=== PATIENT | male | born 1960 | race Caucasian/White ===

== ENCOUNTER 2023-06-03 14:08 | Outpatient (CLI) | payer OTHER, SELFPAY ==
[2023-06-03 10:42] LABS: Abs Immature Grans 0.03 10^3/uL (0.0-0.06); Absolute Basophil Count 0.07 10^3/uL (0.0-0.2); Absolute Lymphocyte Count 1.39 10^3/uL (1.2-3.4); Absolute Monocyte Count 0.73 10^3/uL (0.1-0.8); Absolute Neutrophil Count 3.93 10^3/uL (1.2-6.7); Basophils % 1.1; Eosinophils % 6.1; HCT 44.2 % (40.0-50.0); HGB 14.6 g/dL (13.5-17.5); Immature Grans % 0.5; Lymphocytes % 21.2; MCH 31.7 pg (27.0-33.0); MCV 96 fL (80-95); MPV 8.6 fL (8.0-11.0); Monocytes % 11.1; Platelet Count 184 10^3/uL (130-400); RBC 4.61 10^6/uL (4.36-5.78); RDW 13.2 % (11.8-14.1); RDW-SD 47.2 fL; WBC 6.55 10^3/uL (4.4-10.8)
[2023-06-03 11:07] LABS: ALT 26 U/L (16-63); AST 13 U/L (15-37); Albumin 3.1 g/dL (3.4-5.0); Alkaline Phosphatase 73 U/L (46-116); Anion Gap 6.9 mmol/L (3-11); BUN 20 mg/dL (7-18); Bilirubin, Total 0.3 mg/dL (0.2-1.0); CO2 30.1 mmol/L (21.0-32.0); CREATININE 1.3 mg/dL (0.70-1.30); Calcium 8.5 mg/dL (8.5-10.1); Chloride 104 mmol/L (98-107); Estimated GFR 61.35 (mL/min/1.73m2); FREE T4 0.62 ng/dL (0.76-1.46); Glucose 106 mg/dL (74-106); Magnesium 2.1 mg/dL (1.8-2.4); Potassium 4.9 mmol/L (3.5-5.1); Sodium 141 mmol/L (136-145); TSH 4.35 uIU/Ml (0.36-3.74); Total Protein 7.3 g/dL (6.4-8.2)
== END 2023-06-03 14:09 | disposition home or self-care (01) ==
LOC: LBO 14:08
PROVIDERS: Visit Provider Internal Medicine Medical Oncology
DX: C34.12 Malignant neoplasm of upper lobe, left bronchus or lung (principal); C78.7 Secondary malignant neoplasm of liver and intrahepatic bile duct; Z79.899 Other long term (current) drug therapy
CPT/HCPCS: 36415; 80053; 83735; 84439; 84443; 85025

== ENCOUNTER 2023-06-29 05:31 | Outpatient (CLI) | payer OTHER, SELFPAY ==
[2023-06-29 10:13] LABS: Abs Immature Grans 0.03 10^3/uL (0.0-0.06); Absolute Basophil Count 0.08 10^3/uL (0.0-0.2); Absolute Eosinophil Count 0.44 10^3/uL (0.0-0.7); Absolute Lymphocyte Count 1.45 10^3/uL (1.2-3.4); Absolute Monocyte Count 0.67 10^3/uL (0.1-0.8); Absolute Neutrophil Count 3.69 10^3/uL (1.2-6.7); Basophils % 1.3 %; Eosinophils % 6.9 %; HCT 43.1 % (40.0-50.0); HGB 14.2 g/dL (13.5-17.5); Immature Grans % 0.5 %; Lymphocytes % 22.8 %; MCH 31.3 pg (27.0-33.0); MCHC 32.9 % (32.0-36.0); MCV 95 fL (80-95); MPV 8.6 fL (8.0-11.0); Monocytes % 10.5 %; Platelet Count 216 10^3/uL (130-400); RBC 4.54 10^6/uL (4.36-5.78); RDW 13.6 % (11.8-14.1); RDW-SD 48.1 fL; WBC 6.36 10^3/uL (4.4-10.8)
[2023-06-29 10:39] LABS: ALT 23 U/L (16-63); AST 10 U/L (15-37); Albumin 3.3 g/dL (3.4-5.0); Alkaline Phosphatase 82 U/L (46-116); Anion Gap 9.2 mmol/L (3-11); BUN 25 mg/dL (7-18); Bilirubin, Total 0.3 mg/dL (0.2-1.0); CO2 28.8 mmol/L (21.0-32.0); CREATININE 1.2 mg/dL (0.70-1.30); Calcium 8.8 mg/dL (8.5-10.1); Chloride 105 mmol/L (98-107); Estimated GFR 67.53 (mL/min/1.73m2); Glucose 89 mg/dL (74-106); Magnesium 2.1 mg/dL (1.8-2.4); Sodium 143 mmol/L (136-145); TSH 5.92 uIU/Ml (0.36-3.74); Total Protein 7.5 g/dL (6.4-8.2)
== END 2023-06-29 05:32 | disposition home or self-care (01) ==
LOC: LBO 05:31
PROVIDERS: Visit Provider Internal Medicine Medical Oncology
DX: C34.12 Malignant neoplasm of upper lobe, left bronchus or lung (principal); C78.7 Secondary malignant neoplasm of liver and intrahepatic bile duct; Z79.899 Other long term (current) drug therapy
CPT/HCPCS: 36415; 80053; 83735; 84439; 84443; 85025

== ENCOUNTER 2023-07-22 05:02 | Outpatient (CLI) | payer OTHER, SELFPAY ==
[2023-07-22 10:09] LABS: Abs Immature Grans 0.01 10^3/uL (0.0-0.06); Absolute Basophil Count 0.07 10^3/uL (0.0-0.2); Absolute Eosinophil Count 0.33 10^3/uL (0.0-0.7); Absolute Lymphocyte Count 1.19 10^3/uL (1.2-3.4); Absolute Monocyte Count 0.59 10^3/uL (0.1-0.8); Absolute Neutrophil Count 2.37 10^3/uL (1.2-6.7); Basophils % 1.5 %; Eosinophils % 7.2 %; HCT 45.1 % (40.0-50.0); HGB 15.1 g/dL (13.5-17.5); Immature Grans % 0.2 %; Lymphocytes % 26.1 %; MCH 32.1 pg (27.0-33.0); MCHC 33.5 % (32.0-36.0); MCV 96 fL (80-95); MPV 8.4 fL (8.0-11.0); Monocytes % 12.9 %; Neutrophils % 52.1 %; Platelet Count 222 10^3/uL (130-400); RBC 4.71 10^6/uL (4.36-5.78); RDW 14.9 % (11.8-14.1); RDW-SD 53.1 fL; WBC 4.56 10^3/uL (4.4-10.8)
[2023-07-22 10:38] LABS: ALT 53 U/L (16-63); AST 18 U/L (15-37); Albumin 3.4 g/dL (3.4-5.0); Alkaline Phosphatase 72 U/L (46-116); Anion Gap 6.1 mmol/L (3-11); BUN 20 mg/dL (7-18); Bilirubin, Total 0.5 mg/dL (0.2-1.0); CO2 30.9 mmol/L (21.0-32.0); CREATININE 1.1 mg/dL (0.70-1.30); Calcium 8.6 mg/dL (8.5-10.1); Chloride 104 mmol/L (98-107); Estimated GFR 74.96 (mL/min/1.73m2); FREE T4 0.87 ng/dL (0.76-1.46); Glucose 81 mg/dL (74-106); Magnesium 2.2 mg/dL (1.8-2.4); Potassium 4.3 mmol/L (3.5-5.1); Sodium 141 mmol/L (136-145); TSH 1.73 uIU/Ml (0.36-3.74); Total Protein 7.8 g/dL (6.4-8.2)
== END 2023-07-22 05:03 | disposition home or self-care (01) ==
LOC: LBO 05:02
PROVIDERS: Visit Provider Internal Medicine Medical Oncology
DX: C34.12 Malignant neoplasm of upper lobe, left bronchus or lung (principal); C78.7 Secondary malignant neoplasm of liver and intrahepatic bile duct; Z79.899 Other long term (current) drug therapy
CPT/HCPCS: 36415; 80053; 83735; 84439; 84443; 85025

== ENCOUNTER 2023-08-17 19:51 | Outpatient (CLI) | payer OTHER, SELFPAY ==
[2023-08-17 10:26] LABS: Abs Immature Grans 0.02 10^3/uL (0.0-0.06); Absolute Eosinophil Count 0.45 10^3/uL (0.0-0.7); Absolute Lymphocyte Count 1.09 10^3/uL (1.2-3.4); Absolute Monocyte Count 0.57 10^3/uL (0.1-0.8); Absolute Neutrophil Count 2.34 10^3/uL (1.2-6.7); Basophils % 2.2 %; Eosinophils % 9.8 %; HCT 42.4 % (40.0-50.0); HGB 13.9 g/dL (13.5-17.5); Immature Grans % 0.4 %; Lymphocytes % 23.9 %; MCH 32.3 pg (27.0-33.0); MCHC 32.8 % (32.0-36.0); MCV 99 fL (80-95); MPV 8.8 fL (8.0-11.0); Monocytes % 12.5 %; Neutrophils % 51.2 %; Platelet Count 154 10^3/uL (130-400); RDW 15.7 % (11.8-14.1); WBC 4.57 10^3/uL (4.4-10.8)
[2023-08-17 10:49] LABS: ALT 65 U/L (16-63); AST 23 U/L (15-37); Albumin 3.4 g/dL (3.4-5.0); Alkaline Phosphatase 61 U/L (46-116); Anion Gap 7.3 mmol/L (3-11); BUN 22 mg/dL (7-18); Bilirubin, Total 0.43 mg/dL (0.2-1.0); CO2 28.7 mmol/L (21.0-32.0); CREATININE 1.1 mg/dL (0.70-1.30); Calcium 8.4 mg/dL (8.5-10.1); Chloride 105 mmol/L (98-107); Estimated GFR 74.96 (mL/min/1.73m2); FREE T4 0.69 ng/dL (0.76-1.46); Glucose 92 mg/dL (74-106); Sodium 141 mmol/L (136-145); Total Protein 7.4 g/dL (6.4-8.2)
== END 2023-08-17 19:52 | disposition home or self-care (01) ==
LOC: LBO 19:51
PROVIDERS: Visit Provider Internal Medicine Medical Oncology
DX: C34.12 Malignant neoplasm of upper lobe, left bronchus or lung (principal); C78.7 Secondary malignant neoplasm of liver and intrahepatic bile duct; Z79.899 Other long term (current) drug therapy
CPT/HCPCS: 36415; 80053; 83735; 84439; 84443; 85025

== ENCOUNTER 2023-09-07 11:52 | Outpatient (CLI) | payer OTHER, SELFPAY ==
[2023-09-07 10:11] LABS: Abs Immature Grans 0.01 10^3/uL (0.0-0.06); Absolute Basophil Count 0.08 10^3/uL (0.0-0.2); Absolute Eosinophil Count 0.54 10^3/uL (0.0-0.7); Absolute Lymphocyte Count 1.02 10^3/uL (1.2-3.4); Absolute Monocyte Count 0.53 10^3/uL (0.1-0.8); Absolute Neutrophil Count 2.48 10^3/uL (1.2-6.7); Basophils % 1.7 %; Eosinophils % 11.6 %; HCT 40.4 % (40.0-50.0); HGB 13.7 g/dL (13.5-17.5); Immature Grans % 0.2 %; Lymphocytes % 21.9 %; MCH 33.5 pg (27.0-33.0); MCHC 33.9 % (32.0-36.0); MCV 99 fL (80-95); MPV 8.1 fL (8.0-11.0); Monocytes % 11.4 %; Neutrophils % 53.2 %; Platelet Count 181 10^3/uL (130-400); RBC 4.09 10^6/uL (4.36-5.78); RDW 14.9 % (11.8-14.1); RDW-SD 54.9 fL; WBC 4.66 10^3/uL (4.4-10.8)
[2023-09-07 10:36] LABS: ALT 47 U/L (16-63); AST 21 U/L (15-37); Albumin 3.2 g/dL (3.4-5.0); Alkaline Phosphatase 59 U/L (46-116); BUN 21 mg/dL (7-18); Bilirubin, Total 0.36 mg/dL (0.2-1.0); CREATININE 1.2 mg/dL (0.70-1.30); Calcium 8.6 mg/dL (8.5-10.1); Chloride 106 mmol/L (98-107); Estimated GFR 67.53 (mL/min/1.73m2); FREE T4 0.77 ng/dL (0.76-1.46); Glucose 87 mg/dL (74-106); Potassium 3.9 mmol/L (3.5-5.1); Sodium 141 mmol/L (136-145); TSH 3.11 uIU/Ml (0.36-3.74); Total Protein 7.3 g/dL (6.4-8.2)
--- OUTSIDE RECORDS SUMMARY | 2023-09-07 11:54 | XMS_ITS ---
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 05/08/2023 Cancer Staging:Clinical stage from 05/08/2023:Stage IVB(cT4, cN3, cM1c) - Signed by Alexsander Thomas MD on 05/08/2023 Secondary malignant neoplasm of liver 05/08/2023 Secondary malignant neoplasm of brain 05/08/2023 Current Oncology Plans [facility] ONC NONSMALL CELL LUNG CANCER - CARBOplatin / PEMEtrexed / PEMBROLIZUMAB* Plan Start Date:06/03/2023 Plan Provider:Alexsander Thomas MD Linked Problems High risk medication useBone neoplasm secondary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Secondary malignant neoplasm of brainSecondary malignant neoplasm of liver Treatment Medications Current Day (Day 1 , Cycle 5 - Planned for 09/07/2023) Next Day (Day 1, Cycle 6 - Planned for 09/28/2023) CARBOplatin (Paraplatin) in 150 mL infusionpembrolizumab (Keytruda) in sodium chloride 0.9% 100 mL infusionPEMEtrexed (Alimta) in sodium chloride 0.9% 100 mL infusion pembrolizumab (Keytruda) 200 mg in sodium chloride 0.9% 108 mL infusionPEMEtrexed disodium (Alimta) 900 mg in sodium chloride 0.9% 136 mL infusion pembrolizumab (Keytruda) 200 mg in sodium chloride 0.9% 108 mL infusionPEMEtrexed disodium (Alimta) 900 mg in sodium chloride 0.9% 136 mL infusion Past Plans No past plan information found. Radiation Treatments * No radiation treatments are documented for this patient in [facility]. Treatments may have been administered in another system.
--- OUTSIDE RECORDS SUMMARY | 2023-09-07 11:54 | XMS_ITS | Clinical Summary ---
Author Organization Formerly [facility] Address [facility] [place] [address] Care Team Providers Care Manager Photography Name Role Phone Mabel Middleton Primary Care Provider [phone] Allergies Active Allergy Reactions Criticality Noted Date Comments Demeclocycline Rash 04/22/2023 Medications Medication Sig Dispensed Refills Start Date End Date Status LORazepam (Ativan) 0.5 mg tablet 0.5 mg. 04/21/2023 Active prochlorperazine (Compazine) 10 mg tablet Take 1 tablet by mouth every 6 hours as needed for Nausea. 30 tablet 3 05/25/2023 Active folic acid (Vitamin B9) 1 mg tablet Take 1 tablet by mouth daily. 30 tablet 6 05/25/2023 Active acetaminophen (Tylenol) 650 mg ER tablet Take 650 mg by mouth every 8 hours as needed for Pain. Do not exceed 6 tabs in 24 hours Active levothyroxine (Synthroid) 50 mcg tabletIndications:Hypo thyroidism, unspecified type Take 1 tablet by mouth daily. 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 High risk medication use 05/27/2023 Primary malignant neoplasm of bronchus of left u pper lobe 05/08/2023 Cancer Staging:Clinical stage from 05/08/2023:Stage IVB(cT4, cN3, cM1c) - Signed by Alexsander Thomas MD on 05/08/2023 Secondary malignant neoplasm of liver 05/08/2023 Secondary malignant neoplasm of brain 05/08/2023 Encounters Date Type Department Care Team Description 09/07/2023 11:30 AM EDT Infusion Hematology Oncology at [address] [phone] Arrived 09/07/2023 11:00 AM EDT Office Visit Hematology/Oncolo gy at [address] [phone] Alexsander Thomas MD 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; Secondary malignant neoplasm of liver; Secondary malignant neoplasm of brain; Bone neoplasm secondary 09/07/2023 Travel 09/04/2023 9:00 AM EDT - 09/04/2023 11:59 PM EDT Hospital En[place] [phone] Marya Rosenberg APRN 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; Bone neoplasm secondary; Secondary malignant neoplasm of liver Discharge Disposition: Home 08/17/2023 11:30 AM EDT Infusion Hematology Oncology at [address] [phone] High risk medication use; Bone neoplasm secondary; 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; Secondary malignant neoplasm of brain; Secondary malignant neoplasm of liver 08/17/2023 11:00 AM EDT Office Visit Hematology/Oncolo gy at [address] [phone] Alexsander Thomas MD LaRoza, Stephanie A, APRN 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; Bone neoplasm secondary; Secondary malignant neoplasm of liver 08/17/2023 Notes Only Hematology/Oncolo gy at [address] [phone] Amber Benton MSW 08/17/2023 Travel 08/10/2023 Telephone Hematology [place] [phone] Denise Ferreira Prior Authorization 07/22/2023 11:30 AM EDT Infusion Hematology Oncology at [address] [phone] High risk medication use; Bone neoplasm secondary; 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; Secondary malignant neoplasm of brain; Secondary malignant neoplasm of liver 07/22/2023 11:00 AM EDT Office Visit Hematology/Oncolo gy at [address] [phone] Marya Rosenberg APRN 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; Secondary malignant neoplasm of liver; Secondary malignant neoplasm of brain; Bone neoplasm secondary 07/22/2023 Notes Only Hematology/Oncolo gy at [address] [phone] Amber Benton, FOREST PATHOLOGY PROFESSOR 07/22/2023 Travel 07/16/2023 11:15 AM EDT Ancillary Procedure [place] [address] Tip Steiner MD 07/16/2023 Ancillary Procedure [place] [address] Alexsander Thomas MD 07/16/2023 Interpretation [place] [address] Tip Steiner MD 07/15/2023 Orders Only Hematology [place] [address] Alexsander Thomas MD 06/29/2023 11:30 AM EDT Infusion Hematology Oncology at [address] [phone] High risk medication use; Bone neoplasm secondary; 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; Secondary malignant neoplasm of brain; Secondary malignant neoplasm of liver 06/29/2023 11:00 AM EDT Office Visit Hematology/Oncolo gy at [address] [phone] Alexsander Thomas MD LaRoza, Stephanie A, APRN 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; Secondary malignant neoplasm of liver; Bone neoplasm secondary; Hypothyroidism, unspecified type 06/29/2023 Notes Only Hematology/Oncolo gy at [address] [phone] Amber Benton, FOREST PATHOLOGY PROFESSOR 06/29/2023 Travel 06/23/2023 Travel 06/23/2023 Telephone Hematology/Oncolo gy at [address] [phone] Amber Benton, FOREST PATHOLOGY PROFESSOR Other (Out reach) 06/22/2023 Telephone Hematology/Oncolo gy at [address] [phone] Christine Hopkins, CLIFF 06/18/2023 Telephone Hematology Oncology at [address] [phone] Kathie Ng RN Rash (Several days of rash chest and back) 06/09/2023 Telephone Hematology [place] [phone] Theroux, Denise E 06/09/2023 Orders Only Hematology/Oncolo gy at [address] [phone] Marya Rosenberg APRN 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; Bone neoplasm secondary; Secondary malignant neoplasm of liver 06/08/2023 Telephone Hematology/Oncolo gy at [address] [phone] Anjana Wesley, CLIFF Follow-up (First chemo) from Last 3 Months Family History Medical History Relation Comments Lung Cancer Maternal Grandfather Ovarian Cancer Mother Relation Status Comments Maternal Grandfather Mother Social History Tobacco Use Types Packs/Day Years Used Date Smoking Tobacco: Never Smokeless Tobacco: Never Tobacco Cessation:Counseling Given: Not Answered Alcohol Use Standard Drinks/Week Comments Never 0 (1 standard drink = 0.6 oz pur e alcohol) [facility] Utilities Answer Date Recorded In the past 12 months has [employer], gas, oil, or water [employer] threatened to shut off services in your home? No 05/28/2023 Overall Financial Resource Strain (CARDIA) Answe r Date Recorded How hard is it for you to pa y for the very basics like food, housing, medical care, and heating? Not hard at all 05/28/2023 Hunger Vital Sign Answer Date Recorded Within the past 12 months, y ou worried that your food would run out before you got the money to buy more. Never true 05/28/19 24 Within the past 12 months, t he food you bought just didn't last and you didn't have money to get more. Never true 05/28/2023 PRAPARE - Transportation Answer Date Re corded In the past 12 months, has l ack of transportation kept you from medical appointments or from getting medications? No 05/2023 In the past 12 months, has l ack of transportation kept you from meetings, work, or from getting things needed for daily living? No 05/28/2023 Housing Stability Vital Sign Answer Rob e Recorded In the last 12 months, was t here a time when you were not able to pay the mortgage or rent on time? No 05/28/2023 In the last 12 months, how many places have you lived? 1 05/28/2023 In the last 12 months, was t here a time when you did not have a steady place to sleep or slept in a group home (including now)? No 05/28/2023 DH IPV Inpatient Questions Answer Date Recorded Does Anyone Try to Keep You From Having Contact with Others or Doing Things Outside Your Home? unable to answer (comment required) 04/22/2023 Feels Threatened by Someone unable to an swer (comment required) 04/22/2023 Feels Unsafe at Home or Work/School unab le to answer (comment required) 04/22/2023 Physical Signs of Abuse Present no 04/22/2023 Sex and Gender Information Value Date Recorded Sex Assigned at Not on file Gender Identity Not on file Sexual Orientation Not on file Last Filed Vital Signs Vital Sign Reading Time Taken Comments Blood Pressure 125/70 09/07/2023 10:42 AM EDT Pulse 78 09/07/2023 10:42 AM EDT Temperature 37 ??C (98.6 ??F) 09/07/2023 10:42 AM EDT Respiratory Rate 18 09/07/2023 10:42 AM EDT Oxygen Saturation 100% 09/07/2023 10:42 AM EDT Inhaled Oxygen Concentration - - Weight 73.1 kg (161 lb 3.2 oz) 09/07/2023 10:42 AM EDT Height 167.2 cm (5' 5.83) 09/07/2023 10:42 AM E DT Body Mass Index 26.16 09/07/2023 10:42 AM EDT Plan of Treatment Upcoming Encounters Date Type Department Care Team (Late st Contact Info) Description 09/28/2023 11:30 AM EDT Office Visit Hematology/Oncology at [address] [phone] Alexsander Thomas MD [facility] DR HEMATOLOGY/[place] [address] Marya Rosenberg APRN [address] [place] [address] [place] [address] 09/28/2023 12:00 PM EDT Infusion Hematology Oncology at [address] [phone] Health Maintenance Due Date Last Done Comments CT Colonography 1958 Colonoscopy 1958 Colorectal Cancer Screening 1958 FIT DNA 1958 FIT 1958 Sigmoidoscopy (10 year) with FIT yearly 1958 Sigmoidoscopy 1958 Lipid Screening 1976 Tdap adult 1977 Tetanus vaccine 1977 Diabetes Screening (HgbA1C or Glucose) 1998 Zoster vaccine (1 of 2) 2008 Covid-19 Vaccine ( - season) 2022 Influenza (Flu) vaccine (1 o f 1 - Influenza standard series) 10/25/2023 HIV screen Completed 04/23/2023 Hepatitis C Screening Completed 04/23/2023 Procedures Procedure Name Priority Date/Time Associated Diagnosis Comments LAB SCAN 09/07/2023 12:00 AM EDT NM [facility] PET CT SKULL BASE TO MID-THIGH Routine 09/04/2023 9:10 AM EDT 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 LAB SCAN 08/17/2023 12:00 AM EDT LAB SCAN 07/22/2023 12:[address] SCAN (SCAN) 07/22/2023 12:[address] SCAN (SCAN) 07/17/2023 12:[address] SCAN (SCAN) 07/17/2023 12:00 AM EDT FILM LIBRARY STORAGE ONLY CT ABDOMEN AND PELVIS Routine 07/16/2023 11:15 AM EDT FILM LIBRARY STORAGE ONLY CT CHEST Routine 07/16/2023 12:00 AM EDT LAB SCAN 06/29/2023 12:00 AM EDT HC VENIPUNCTURE Routine 04/23/2023 8:59 AM EST History of exposure to blood or body fluid HEPATITIS C ANTIBODY Routine 04/23/2023 8:59 AM EST History of exposure to blood or body fluid from Last 3 Months or Most Recently Relevant to Health Maintenance Results * Scan Doc: Lab (09/07/2023 12:00 AM EDT) Only the most recent of4 resultswithin the time period is included. Narrative 09/07/2023 12:00 AM EDT Ordered by an unspecified provider. Scanning Provider MEDIA MGR SCAN EXT O RDR/RSLT * NM P[facility] PET CT Skull Base to Mid-thigh (09/04/2023 9:10 AM EDT) Snapchat WORKSTATION ID [id number] RAD Anatomical Region Laterality Modality Positron Emissio n Tomography (PET) Impressions 09/04/2023 3:06 PM EDT 1. ??Overall interval improvement with decreased size and metabolic activity of the primary malignancy and metastases at all soft tissue and osseous sites as described above with notable exception of a new small FDG avid lytic lesion in the upper sternal body and increased FDG avidity along the right 7th costovertebral joint. Preliminary report signed by: Cathy Renee at 09/04/2023 2:43 PM I have personally reviewed the image(s) and the resident's interpretation and agree with the findings, Arturo Prater MD at 09/04/2023 3:06 PM Thank you for letting us participate in the care of this patient. ??If you are a health care provider and have any questions regarding this report, please contact the number below. ??For patients who have questions please contact the health healthcare or medical that requested your imaging first. ? 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 The noncontrast CT was used for anatomic localization and photon attenuation correction of the PET scan. Blood glucose level: 96 (mg/dL) FDG dose: 11.8 mCi COMPARISON: PET/CT 04/23/2023 CT chest abdomen pelvis 07/16/2023 MR brain 04/30/2023 FINDINGS: HEAD/NECK: Normal activity in all soft tissue regions of the neck and visualized lower head. No adenopathy. Non-FDG avid retention cyst in the right maxillary sinus. CHEST: FDG avid spiculated left upper lobe and left hilar mass/keshav conglomerate abutting the major fissure, continuing to decrease in size compared to CT 07/16/2023 and PET/CT 04/23/2023. FDG avid left lower lobe conglomerate nodules, continuing to decrease in size and activity compared to CT 07/16/2023 and PET/CT 04/23/2023. Interval metabolic resolution and decreased size of several subcentimeter posterior right lower pulmonary nodule (image [id number]). Near complete metabolic resolution and decreased size multiple FDG avid superior mediastinal, bilateral paratracheal, and bilateral hilar adenopathy. No new adenopathy. Increased non-FDG avid small left pleural effusion. Coronary calcification. ABDOMEN/PELVIS: Unchanged FDG avid 15 mm hypodense lesion in the left hepatic lobe compared to PET/CT 04/23/2023. Interval metabolic resolution of lateral peripheral right hepatic lobe lesion. This is poorly CT visualized. No adenopathy. SKELETON/EXTREMITIES: Overall decreased FDG avidity of multiple mixed lytic sclerotic lesions throughout the axial and visualized appendicular skeleton, with notable residual activity in right T9 (image 151) and T3 (image 105) vertebral bodies. No pathologic fracture. Notable small FDG avid lytic lesion in the upper sternal body, new compared to PET CT 04/23/2023, but present on CT 07/16/2023 (image 125). Interval increased FDG avidity along the right 7th costovertebral joint without CT correlate (image 130). 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 The noncontrast CTwas used for anatomic localization and photon attenuation correction of thePET scan. Blood glucose level: 96 (mg/dL) FDG dose: 11.8 mCi COMPARISON: PET/CT 04/23/2023 CT chest abdomen pelvis 07/16/2023 MR brain 04/30/2023 FINDINGS: HEAD/NECK: Normal activity in all soft tissue regions of the neck and visualizedlower head. No adenopathy. Non-FDG avid retention cyst in the right maxillary sinus. CHEST: FDG avid spiculated left upper lobe and left hilar mass/nodalconglomerate abutting the major fissure, continuing to decrease in size compared toCT 07/16/2023 and PET/CT 04/23/2023. FDG avid left lower lobe conglomerate nodules, continuing to decrease insize and activity compared to CT 07/16/2023 and PET/CT 04/23/2023. Interval metabolic resolution and decreased size of severalsubcentimeter posterior right lower pulmonary nodule (image [id number]). Near complete metabolic resolution and decreased size multiple FDG avidsuperior mediastinal, bilateral paratracheal, and bilateral hilar adenopathy. No new adenopathy. Increased non-FDG avid small left pleural effusion. Coronarycalcification. ABDOMEN/PELVIS: Unchanged FDG avid 15 mm hypodense lesion in the left hepatic lobecompared to PET/CT 04/23/2023. Interval metabolic resolution of lateral peripheral right hepatic lobelesion. This is poorly CT visualized. No adenopathy. SKELETON/EXTREMITIES: Overall decreased FDG avidity of multiple mixed lytic sclerotic lesions throughout the axial and visualized appendicular skeleton, with notableresidual activity in right T9 (image 151) and T3 (image 105) vertebral bodies. No pathologic fracture. Notable small FDG avid lytic lesion in the upper sternal body, newcompared to PET CT 04/23/2023, but present on CT 07/16/2023 (image 125). Interval increased FDG avidity along the right 7th costovertebral jointwithout CT correlate (image 130). IMPRESSION 1. Overall interval improvement with decreased size and metabolicactivity of the primary malignancy and metastases at all soft tissue and osseous sitesas described above with notable exception of a new small FDG avid lyticlesion in the upper sternal body and increased FDG avidity along the right 7th costovertebral joint. Preliminary report signed by: Cathy Renee at 09/04/2023 2:43PM I have personally reviewed the image(s) and the resident's interpretationand agree with the findings, Arturo Prater MD at 09/04/2023 3:06 PM Thank you for letting us participate in the care of this patient. If youare a health care provider and have any questions regarding this report,please contact the number below. For patients who have questions please contactthe health healthcare or medical that requested your imaging first. Marya Rosenberg APRN [facility] PET ORDERABL ES * Scan Doc: CT Scan (07/22/2023 12:00 AM EDT) Only the most recent of3 resultswithin the time period is included. Anatomical Region Laterality Modality Other Narrative 07/22/2023 12:00 AM EDT Ordered by an unspecified provider. Scanning Provider MEDIA MGR SCAN EXT O RDR/RSLT * Film Library- Storage Only CT Abdomen & Pelvis (07/16/2023 11:15 AM EDT) 07/19/2023 11:0 8 PM EDT Narrative [facility] - 07/19/2023 11:08 PM EDT This exam is auto-finalizing. It's purpose is for storage only. Tip Steiner MD [facility] FILM LIBRARY ORD ERABLES [place], [place] * Film Library- Storage Only CT Chest (07/16/2023 12:00 AM EDT) Narrative RAD - 07/23/2023 11:57 AM EDT This exam is auto-finalizing. It's purpose is for storage only. Alexsander Thomas MD IM FILM LIBRARY ORD ERABLES [place], [place] * Hepatitis C Antibody (04/23/2023 8:59 AM EST) Hepatitis C Ab Negative Negative [facility] Blood 04/23/2023 8:59 AM EST 04/23/2023 9:08 AM EST Narrative Resulting Agency Comment Spec In Lab Yojana Huff APRN IMMUNOLOGY ORDERABLE S Performing Organization Address [facility] Co de Phone Number [facility] [place] [address] * HIV Screen, 4th Generation ([facility]/CGP/APD/NLH) (04/23/2023 8:59 AM EST) HIV-1/2 Ab and Ag Negative Negative [facility] Comment: This 4th Generation HIV test screens for the presence of the HIV-1 p24 antigen as well as antibodies reactive against HIV-1 and HIV-2. A negative screen does not rule out an acute HIV infection. If acute HIV infection is suspected, testing should be repeated in 2 - 3 weeks or HIV nucleic acid testing performed. HIV Comment Low Risk of HIV Infection [facility] Blood 04/23/2023 8:59 AM EST 04/23/2023 9:08 AM EST Narrative Resulting Agency Comment Spec In Lab Yojana Huff APRN IMMUNOLOGY ORDERABLE S Performing Organization Address City/[facility] Co de Phone Number [facility] [place] [address] from Last 3 Months or Most Recently Relevant to Health Maintenance Advance Directives Documents on File Type Date Recorded Patient Back Panel Padder Expl anation Advance Directives and Living Will 08/17/2023 10:27 AM ADVANCE DIRECTIVE FORM DNR/Out of hospital 06/04/2023 3:37 PM DNR Personal Back Panel Padder 04/24/2023 10:43 AM raul grimes Personal Back Panel Padder 04/24/2023 10:43 AM monica chan Care Teams Manager Photography Relationship Specialty Start Date End Date Mabel Middleton PA [address] [place] [address] PCP - General Family Medicine 04/20/23
--- OUTSIDE RECORDS SUMMARY | 2023-09-07 11:54 | XMS_ITS | Encounter Summary ---
Author Organization [facility] Address [facility] [place] [address] Care Team Providers Care Charging Manipulator Name Role Phone Mabel Middleton Primary Care Provider [phone] Reason for Visit * Treatment/Therapy Plan Authorization (Routine) - Pending Review Specialty Diagnoses / Procedures Referred By Contac t Referred To Contact Diagnoses High risk medication use Bone neoplasm secondary 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 Secondary malignant neoplasm of brain Secondary malignant neoplasm of liver Procedures TC PALONOSETRON HCL, 25MCG, INJECTION (ALOXI) TC APREPITANT, 1 MG, INJECTION TC CARBOPLATIN, 50MG, INJECTION (PARAPLATIN) TC PEMETREXED, 10MG, INJECTION (ALIMTA) TC DENOSUMAB, 1MG, INJECTION [id number] (PEMBROLIZUMAB) Alexsander Thomas MD [facility] DR HEMATOLOGY/[place] [address] St Hem Onc Office [address] [place] [phone] Referral ID Status Reason Start Date Expiration Date V isits Requested Visits Authorized [id number] Pending Review 05/27/2023 05/26/2024 1 100 Encounter Details Date Type Department Care Team (Late st Contact Info) Description 09/07/2023 11:30 AM EDT Infusion Hematology Oncology at [address] [phone] Arrived Social History Tobacco Use Types Packs/Day Years Used Date Smoking Tobacco: Never Smokeless Tobacco: Never Alcohol Use Standard Drinks/Week Comments Never 0 (1 standard drink = 0.6 oz pur e alcohol) [facility] Utilities Answer Date Recorded In the past 12 months has th e electric, gas, oil, or water company threatened to shut off services in your [...] place to sleep or slept in a intermediate (including now)? No 05/28/2023 DH IPV Inpatient [...] on file Sexual Orientation Not on file documented as of this encounter Plan of Treatment Upcoming Encounters Date Type Department Care Team (Late st Contact Info) Description 09/28/2023 11:30 AM EDT Office Visit Hematology/Oncology at [address] [phone] Alexsander Thomas MD [facility] DR HEMATOLOGY/[place] [address] Marya Rosenberg APRN [address] [place] [address] DR HEMATOLOGY [place] [address] 09/28/2023 12:00 PM EDT Infusion Hematology Oncology at [address] [phone] documented as of this encounter Visit Diagnoses Not on filedocumented in this encounter Care Teams Charging Manipulator Relationship Specialty Start Date End Date Mabel Middleton PA [facility] [place] [phone] PCP - General Family Medicine 04/20/23 documented as of this encounter
--- OUTSIDE RECORDS SUMMARY | 2023-09-07 11:54 | XMS_ITS | Encounter Summary ---
Author Organization [facility] Address [facility] [place] [address] Care Team Providers Care Porter Head Name Role Phone Mabel Middleton Primary Care Provider [phone] Encounter Details Date Type Department Care Team (Latest Contact Info) Description 09/07/2023 Travel Social History Tobacco Use Types Packs/Day Years Used Date Smoking Tobacco: Never Smokeless Tobacco: Never Alcohol Use Standard Drinks/Week Comments Never 0 (1 standard drink = 0.6 oz pur e alcohol) [facility] Utilities Answer Date Recorded In the past [...] place to sleep or slept in a long term (including now)? No 05/28/2023 DH IPV Inpatient [...] 11:30 AM EDT Office Visit Hematology/Oncology at [address] [phone] Alexsander Thomas MD [facility] DR HEMATOLOGY/[place] [address] Marya Rosenberg APRN [address] [place] [address] HEMATOLOGY AND ONGOLOCY [place], [place] [id number] 09/28/2023 12:00 PM EDT Infusion Hematology Oncology at [address] [phone] documented as of this encounter Visit Diagnoses Not on filedocumented in this encounter Care Teams Porter Head Relationship Specialty Start Date End Date Mabel Middleton PA [address] [place] [phone] PCP - General Family Medicine 04/20/23 documented as of this encounter
--- OUTSIDE RECORDS SUMMARY | 2023-09-07 11:55 | XMS_ITS | Encounter Summary ---
Author Organization [facility] Address [facility] [place] [address] Care Team Providers Care Ordained Minister Name Role Phone Mabel Middleton Primary Care Provider [phone] Encounter Details Date Type Department Care Team (Latest Contact Info) Description 06/23/2023 Travel Social History Tobacco Use Types Packs/Day Years Used Date Smoking Tobacco: Never Smokeless Tobacco: Never Alcohol Use Standard Drinks/Week Comments Never 0 (1 standard drink = 0.6 oz pur e alcohol) [facility] Utilities Answer Date Recorded In the [...] place to sleep or slept in a alf (including now)? No 05/28/2023 DH IPV Inpatient [...] 11:30 AM EDT Office Visit Hematology/Oncology at [address] [phone] Alexsander Thomas MD [facility] DR HEMATOLOGY/[place] [address] Marya Rosenberg APRN [address] [place] [address] HEMATOLOGY AND ONGOLOCY [place], [place] [id number] 09/28/2023 12:00 PM EDT Infusion Hematology Oncology at [address] [phone] documented as of this encounter Visit Diagnoses Not on filedocumented in this encounter Care Teams Ordained Minister Relationship Specialty Start Date End Date Mabel Middleton PA [address] [place] [phone] PCP - General Family Medicine 04/20/23 documented as of this encounter
--- OUTSIDE RECORDS SUMMARY | 2023-09-07 11:55 | XMS_ITS | Encounter Summary ---
Author Organization [facility] Address [facility] [place] [address] Care Team Providers Care Marketing Liaison Name Role Phone Mabel Middleton Primary Care Provider [phone] Encounter Details Date Type Department Care Team (Late st Contact Info) Description 07/16/2023 Ancillary Procedure [place] [phone] Alexsander Thomas MD [facility] DR HEMATOLOGY/[place] [address] Social History Tobacco Use Types Packs/Day Years Used Date Smoking Tobacco: Never Smokeless Tobacco: Never Alcohol Use Standard Drinks/Week Comments Never 0 (1 standard drink = 0.6 oz pur e alcohol) [facility] Utilities Answer Date Recorded In the past 12 months has [facility] [employer], gas, oil, or water [employer] threatened to shut off services in your [...] place to sleep or slept in a chcf (including now)? No 05/28/2023 DH IPV Inpatient [...] 11:30 AM EDT Office Visit Hematology/Oncology at [address] [phone] Alexsander Thomas MD [facility] DR HEMATOLOGY/[place] [address] Marya Rosenberg APRN [address] [place] [address] [place] [address] 09/28/2023 12:00 PM EDT Infusion Hematology Oncology at [address] [phone] documented as of this encounter Procedures Procedure Name Priority Date/Time Associated Diagnosis Comments FILM LIBRARY STORAGE ONLY CT CHEST Routine 07/16/2023 12:00 AM EDT documented in this encounter Results * Film Library- Storage Only CT Chest (07/16/2023 12:00 AM EDT) Narrative [facility] - 07/23/2023 11:57 AM EDT This exam is auto-finalizing. It's purpose is for storage only. Alexsander Thomas MD IMG FILM LIBRARY ORD ERABLES Performing Organization Address City/State/[facility] Co de Phone Number [place], [place] documented in this encounter Visit Diagnoses Not on filedocumented in this encounter Care Teams Marketing Liaison Relationship Specialty Start Date End Date Mabel Middleton PA [address] [place] [phone] PCP - General Family Medicine 04/20/23 documented as of this encounter
--- OUTSIDE RECORDS SUMMARY | 2023-09-07 11:55 | XMS_ITS | Encounter Summary ---
Author Organization [facility] Address [facility] [place] [address] Care Team Providers Care Flooring Machine Feeder Name Role Phone Mabel Middleton Primary Care Provider [phone] Encounter Details Date Type Department Care Team (Late st Contact Info) Description 06/29/2023 11:00 AM EDT Office Visit Hematology/Oncology at [address] [phone] Alexsander Thomas MD [facility] HEMATOLOGY/[place] [address] Marya Rosenberg APRN [address] [place] [address] H[place]OLOGY [place] [address] 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; Secondary malignant neoplasm of liver; Bone neoplasm secondary; Hypothyroidism, unspecified type Social History Tobacco Use Types Packs/Day Years Used Date Smoking Tobacco: Never Smokeless Tobacco: Never Alcohol Use Standard Drinks/Week Comments Never 0 (1 standard drink = 0.6 oz pur e alcohol) [facility] Utilities Answer Date Recorded In the past 12 months has e [employer], gas, oil, or water [employer] threatened to shut off services in your [...] on file documented as of this encounter Last Filed Vital Signs Vital Sign Reading Time Taken Comments Blood Pressure 107/66 06/29/2023 10:49 AM EDT Pulse 78 06/29/2023 10:49 AM EDT Temperature 36.4 ??C (97.6 ??F) 06/29/2023 1 0:49 AM EDT Respiratory Rate 18 06/29/2023 10:4 9 AM EDT Oxygen Saturation 100% 06/29/2023 10: 49 AM EDT Inhaled Oxygen Concentration - - Weight 68.9 kg (151 lb 12.8 oz) 05/06/2 024 10:49 AM EDT Height 167.2 cm (5' 5.83) 06/29/2023 1 0:49 AM EDT Body Mass Index 24.63 06/29/2023 10:49 AM EDT documented in this encounter Patient Instructions * Patient Instructions* Marya Rosenberg APRN - 06/29/2023 11:00 AM EDT We will be adding denosumab therapy to your treatment plant today. If you need any dental work done, PLEASE call us in advance. Also adding levothyroxine to better support your thyroid gland. documented in this encounter Progress Notes * Marya Rosenberg APRN - 06/29/2023 11:00 AM EDT Images from the original note were not included. Hematology & Medical Oncology [address] [address] Daniele Chan is being seen for the evaluation of lung cancer. Assessment & Plan: Daniele Chan is a 62 y.o. 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 No actionable non emergency services ambulance driver mutation was identified. While there perhaps could be a role for osimertinib in the future given the rarity of the alteration identified and the lack of compelling data that osimertinib will be active this would not be utilized in the first-line. Given the extensive osseous metastases particularly in the clivus and cervical spine, he met with Dr. Farnsworth in radiation oncology. For now, it was decided to forego palliative therapy at this time in an effort to avoid delay of systemic therapy. Per Dr. Farnsworth's note: Given that Jesus has notyet started chemotherapy, I discussed with Dr Thomas that it would be reasonable to proceed with systemic treatment sooner rather than later, especially because the start of RT would delay the start ofsystemic therapy by at least 2-3 weeks. In the event that he progresses while on chemotherapy - whether it is symptomatic or not - we could then consider palliative RT. Further, If he has a good response to systemic treatment, whole brain RT could be deferred indefinitely, or possible replaced by SRS. Given the location of the clival metastasis, I would recommend deferring RT to this site at present. If WBRT or SRS is necessary in the future this could be easily incorporated into that treatmentplan as radiation treatment now may impact future treatment of his brain metastases. Daniele began therapy with carboplatin, pemetrexed, and pembrolizumab on 06/03/23 and is so far tolerating that well. Plan: - Labs and toxicities assessed and acceptable for ongoing treatment. Plan for C2 carbo/pem/pem today. - RTC in 3 weeks for consideration of C3, plan to restage after that cycle, this has already been ordered. - We will start denosumab today, given day 1 of each cycle. Reviewed that he has no dental issues at this time and to discuss with us any dental procedures before they happen due to risk of ONJ Marya Rosenberg, BLOW MOLDING MACHINE TENDER 06/29/2023 Medical Oncology & Hematology [facility] CC: KISHOR Moss HPI/Interval History/Subjective: Last seen 06/03/2023 Daniele is here today accompanied by his Kathi. Did feel some fatigue, but better over the last few days. Mild nausea, no vomiting, only needed two doses of oral antiemetics. No diarrhea, no constipation. Appetite was good, weight is down a bit but looking back over the last few visits it's overall stable. No pain. Breathing is stable. Can still do stairs. No real cough. No joint issues. No headaches. No blurry vision A little more unsteady. No falls. Had a colonoscopy in mid 50s- no issues identified by his report Gotten COVID vaccine. 1 booster Social History/Support Network: Home situation: 36 years. Lives in [facility]. 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 Tobacco use: None. Mom smoked but not around them. 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 [phone]. 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 [employer] Alcohol use: Does not drink Drug use: Financial Distress: Social Determinants of Health Financial Resource Strain: Low Risk (05/28/2023) Overall Financial Resource Strain (CARDIA) Difficulty of Paying Living Expenses: Not hard at all Food Insecurity: No Food Insecurity (05/28/2023) Hunger Vital Sign Worried About Running Out of Food in the Last Year: Never true Ran Out of Food in the Last Year: Never true Transportation Needs: No Transportation Needs (05/28/2023) PRAPARE - Transportation Lack of Transportation (Medical): No Lack of Transportation (Non-Medical): No Physical Activity: Not on file Housing Stability: Low Risk (05/28/2023) Housing Stability Vital Sign Unable to Pay for Housing in the Last Year: No Number of Places Lived in the Last Year: 1 Unstable Housing in the Last Year: No Intimate Partner Violence: Patient Unable To Answer (04/22/2023) IPV Inpatient Questions Prevent Contact with Others: unable to answer (comment required) Feels Threatened by Someone: unable to answer (comment required) Feels Unsafe at Home: unable to answer (comment required) Physical Signs of Abuse Present: no Utilities: Not At Risk (05/28/2023) [facility] Utilities Threatened with loss of utilities: No Likes working on his [employer] 7-8 cords a year Likes outside service: N/A Family History: Mother- Dscd 70. Ovarian cancer Father- Dscd 93 ? Heart related. Maternal GF- pipe smoker and had lung cancer. Oncology Overview: Cancer Staging 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 Staging form: Lung, AJCC 8th Edition - Clinical stage from 05/08/2023: Stage IVB (cT4, cN3, cM1c) - Signed by Alexsander Thomas MD on 05/08/2023 Presentation: Daniele Chan is a 62 y.o. male patient with a past medical history significant forminimal PMH and no personal tobacco use hx with a chronic cough that ultimately prompted further evaluation as detailed below. Staging/PreTx Eval: 03.31.[address] Chest 04.22.23 Bronchoscopy EBUS-TBNA 04.23.23 PET scan IMPRESSION 1. 5.3 cm FDG avid left upper lobe malignancy, displacing the major fissure. 2. Multiple pulmonary metastases in the bilateral lower lobes. 3. Bossman metastases in the left anterior mediastinal, bilateral lower paratracheal, and left hilar regions. 4. Hepatic metastases in the right and left hepatic lobes as detailed above. 5. Multiple osseous metastases as above. 04.30.23 MRI 1. Multiple supratentorial and infratentorial brain parenchymal metastases, measuring up to 9 mm in the right cerebellar hemisphere. 2. Enhancing lesions in the clivus and C2 vertebra concerning for osseous metastasis. Pathology: 04.22.23 DDENDUM DISCUSSION Tissue: Lymph node, station 11L (EBUS-guided FNA): Tumor Proportion Score (TPS): % Expression: 1-2% Non-Scaffold Setter Final DIAGNOSIS Positive for Malignancy DISCUSSION Lymph node, station 11L (EBUS-guided FNA): Consistent with metastatic adenocarcinoma of lung origin. The immunoperoxidase stain results supports the diagnosis. Non-Scaffold Setter Final DIAGNOSIS Positive for Malignancy DISCUSSION Lymph node, station 4R (EBUS-guided FNA): Consistent with metastatic adenocarcinoma of lung origin. (Tumor is in the cell block section) Molecular Data: previously reported but uncommon missense variant in ser tumors. Previous reports suggest this variant (p.D761Y) emay occur in sometumors as an acquired resistance variant following EGFR TKI treatment (PMID: 23757960; [id number]). Tumors with this rare EGFRvariant may responde to 3rd generation EGFR i nhibitiors (PMID: 50892051; [id number]; [id number]). Treatment Course: 06.03.23 C1 carboplatin/pemetrexed/pembro 06/03/2023 12:15 PM 06/03/2023 12:37 PM 06/03/2023 1:15 PM 06/03/2023 1:32 PM ONCBCN ONCOLOGY (AMB) Day, Cycle Day 1, Cycle 1 CARBOplatin (Paraplatin) IV 410 mg cyanocobalamin (Vitamin B-12) 1,000 mcg/mL SubQ 1,000 mcg pembrolizumab 25 mg/mL (Keytruda) IV 200 mg PEMEtrexed disodium (Alimta) IV 500 mg/m2/dose = 900 mg I reviewed the problem list, allergies, medications, past medical history, social history and family history within the EPIC encounter. Pertinent details are noted above. Pertinent positives and negative from the Review of Systems are as summarized above in the HPI. Physical Exam: Wt Readings from Last 3 Encounters: 06/29/23 68.9 kg (151 lb 12.8 oz) 06/03/23 69.9 kg (154 lb 3.2 oz) 05/25/23 70.2 kg (154 lb 12.8 oz) Temp Readings from Last 3 Encounters: 06/29/23 36.4 ??C (97.6 ??F) (Temporal) 06/03/23 36.6 ??C (97.9 ??F) (Temporal) 05/25/23 36.6 ??C (97.8 ??F) (Temporal) BP Readings from Last 3 Encounters: 06/29/23 107/66 06/03/23 113/77 05/25/23 148/72 Pulse Readings from Last 3 Encounters: 06/29/23 78 06/03/23 88 05/25/23 91 Body surface area is 1.79 meters squared. Wt Readings from Last 3 Encounters: 06/29/23 68.9 kg (151 lb 12.8 oz) 06/03/23 69.9 kg (154 lb 3.2 oz) 05/25/23 70.2 kg (154 lb 12.8 oz) KPS Score ECOG Grade Definition 90-100 0 Fully active, able to carry on all pre-disease performance without restriction X 70-80 1 Restricted in physically strenuous activity but ambulatory and able to carry out work of a light or sedentary nature, e.g., light house work, office work 50-60 2 Ambulatory and capable of all selfcare but unable to carry out any work activities; up and about more than 50% of waking hours 30-40 3 Capable of only limited selfcare; confined to bed or chair more than 50% of waking hours 10-20 4 Completely disabled; cannot carry on any selfcare; totally confined to bed or chair Physical Exam Constitutional: General: Not in acute distress. Appearance: Normal appearance. Appears younger than stated age HENT: Head: Atraumatic. Eyes: General: No conjunctival icterus. Right eye: No discharge. Left eye: No discharge. Conjunctiva/sclera: Conjunctivae normal. Pulmonary: Effort: Pulmonary effort is normal. Neurological: General: No focal deficit present. Mental Status: Alert and oriented to person, place, and time. Mental status is at baseline. Psychiatric: Mood and Affect: Mood normal. Behavior: Behavior normal. Thought Content: Thought content normal. Judgment: Judgment normal. Review of Laboratory Data: 06/29/23 WBC 6.36, H/H 14.2/43.1, plt 216, ANC 3690, Na 143, K 4.0, Cl 105, CO2 28.8, BUN 25, Creat 1.2, glucose 89, Ca 8.8, Mag 2.1, t bili 0.3, AST 10, ALT 23, alk phos 82, t protein 7.5, albumin 3.3, TSH 5.92, Free T4 0.60 4.10.24 WBC 6.55, H/H 14.6/44.2, plt 184, ANC 3930, Na 141, K 4.9, Cl 104, CO2 30.1, BUN 20, Creat 1.3, glucose 106, Ca 8.5, Mag 2.1, t bili 0.3, AST 13, ALT 26, alk phos 73, t protein 7.3, albumin 3.1, TSH 4.35, Free T4 0.62 Review of Imaging Data: No new data Review of Pathology Data: No new data * Christine Hopkins RN - 06/29/2023 11:00 AM EDT [facility] paperwork filled out, signed by provider and faxed. documented in this encounter Plan of Treatment Upcoming Encounters Date Type Department Care Team (Late st Contact Info) Description 09/28/2023 11:30 AM EDT Office Visit Hematology/Oncology at [address] [phone] Alexsander Thomas MD [facility] DR HEMATOLOGY/[place] [address] Marya Rosenberg APRN [address] [place] [address] DR HEMATOLOGY AND ONGOLOCY [place], [place] [id number] 09/28/2023 12:00 PM EDT Infusion Hematology Oncology at [address] [phone] documented as of this encounter Visit Diagnoses Diagnosis 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 Malignant neoplasm of upper lobe, bronchus or lung Secondary malignant neoplasm of liver 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
--- OUTSIDE RECORDS SUMMARY | 2023-09-07 11:55 | XMS_ITS | Encounter Summary ---
Author Organization [facility] Address [facility] [place] [address] Care Team Providers Care Biotechnician Name Role Phone Mabel Middleton Primary Care Provider [phone] Reason for Visit * Reason Comments Chemotherapy Carbo/pem/pem * Treatment/Therapy Plan Authorization (Routine) - Pending Review Specialty Diagnoses / Procedures Referred By Mimi t Referred To Contact Diagnoses High risk medication use Bone neoplasm secondary 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 Secondary malignant neoplasm of brain Secondary malignant neoplasm of liver Procedures TC PALONOSETRON HCL, 25MCG, INJECTION (ALOXI) TC APREPITANT, 1 MG, INJECTION TC CARBOPLATIN, 50MG, INJECTION (PARAPLATIN) TC PEMETREXED, 10MG, INJECTION (ALIMTA) TC DENOSUMAB, 1MG, INJECTION [id number] (PEMBROLIZUMAB) Alexsander Thomas MD [facility] DR HEMATOLOGY/[place] [address] [facility] Hem Onc Office [address] [place] [phone] Referral ID Status Reason Start Date Expiration Date V isits Requested Visits Authorized [id number] Pending Review 05/27/2023 05/26/2024 1 100 Encounter Details Date Type Department Care Team (Late st Contact Info) Description 06/29/2023 11:30 AM EDT Infusion Hematology Oncology at [address] [phone] High risk medication use; Bone neoplasm secondary; 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; Secondary malignant neoplasm of brain; Secondary malignant neoplasm of liver Social History Tobacco Use Types Packs/Day Years Used Date Smoking Tobacco: Never Smokeless Tobacco: Never Alcohol Use Standard Drinks/Week Comments Never 0 (1 standard drink = 0.6 oz pur e alcohol) [facility] Utilities Answer Date Recorded In the [...] place to sleep or slept in a nursing home (including now)? No 05/28/2023 DH IPV [...] on file documented as of this encounter Progress Notes * Mary Valdez RN - 06/29/2023 11:30 AM EDT Daniele Chan, 62 y.o. male with diagnosis of Lung Cancer is here for chemotherapy infusion of Carbo/Pem/Pem. PROTOCOL: na CYCLE: 2 DAY: 1 S: Pt. offers no complaints at this time. Reviewed plan of care for infusion visit, patient verbalized understanding of plan as outlined. O: Chemotherapy orders independently verified for correct drug name, route and dosage per patient'sheight, weight and BSA by Mary Valdez, CLIFF, and onsite pharmacist. Chemotherapy administeredper protocol. REACTIONS (DESCRIPTION, TIME, INTERVENTION AND EFFECTIVENESS) none A: Pt. Tolerated treatment with out issue. Daniele Chan confirms that all questions and issues have been addressed. P: Return to clinic as scheduled. documented in this encounter Plan of Treatment Upcoming Encounters Date Type Department Care Team (Late st Contact Info) Description 09/28/2023 11:30 AM EDT Office Visit Hematology/Oncology at [address] [phone] Alexsander Thomas MD [facility] DR HEMATOLOGY/[place] [address] Marya Rosenberg APRN [address] [place] [address] [place] [address] 09/28/2023 12:00 PM EDT Infusion Hematology Oncology at [address] [phone] documented as of this encounter Visit Diagnoses Diagnosis High risk medication use Encounter for long-term (current) use of other medications 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 Malignant neoplasm of upper lobe, bronchus or lung Secondary malignant neoplasm of brain Secondary malignant neoplasm of brain and spinal cord Secondary malignant neoplasm of liver documented in this encounter Administered Medications Inactive Administered Medications - up to 3 most recent administrations Medication Order MAR Action Action Date Dose Rate Site aprepitant (CINVANTI) injection Emulsion 130 mg 130 mg, Intravenous, Administer over 2 Minutes, ONCE, 1 dose, On Thu06/29/23 at 1200, Alternative administration of IV push over 2 minutes is a recommendation from the port traffic manager. Administer prior to chemotherapy., Routine Given 06/29/2023 11:51 AM EDT 130 mg calcium carbonate (TUMS) chewable tablet 500 mg 500 mg, Oral, ONCE, 1 dose, On Thu06/29/23 at 1230, Routine Given 06/29/2023 1:34 PM EDT 500 mg CARBOplatin (Paraplatin) 434 mg in dextrose 5% 293.4 mL infusion 434 mg (Target AUC = 5), Intravenous, ONCE, 1 dose, On Thu06/29/23 at 1300, Administer over 30 Minutes, Warning Vesicant/Irritant Medication New Bag 06/29/2023 1:33 PM EDT 434 mg 586.8 mL/hr denosumab (Xgeva) (120 mg/1.7 mL) subcutaneous injection 120 mg 120 mg, Subcutaneous, ONCE, 1 dose, On Thu06/29/23 at 1300, This agent is restricted to outpatient use. Is this drug being given as an outpatient? Yes Given 06/29/2023 1:36 PM EDT 120 mg Right Arm dexAMETHasone (Decadron) tablet 10 mg 10 mg, Oral, ONCE, 1 dose, On Thu06/29/23 at 1200, Administer prior to chemotherapy, Routine Given 06/29/2023 11:47 AM EDT 10 mg palonosetron (Aloxi) (0.05 mg/mL) injection 0.25 mg 0.25 mg, Intravenous, ONCE, 1 dose, On Thu06/29/23 at 1200, Administer over 30 seconds., Routine Given 06/29/2023 11:48 AM EDT 0.25 mg pembrolizumab (Keytruda) 200 mg in sodium chloride 0.9% 108 mL infusion 200 mg, Intravenous, ONCE, 1 dose, On Thu06/29/23 at 1300, Administer over 30 Minutes, Flush Line with NS after each dose, This agent is restricted to outpatient use. Is this drug being given as an outpatient? Yes New Bag 06/29/2023 12:32 PM EDT 200 mg 216 mL/hr PEMEtrexed disodium (Alimta) 900 mg in sodium chloride 0.9% 136 mL infusion 900 mg (rounded from 910 mg = 500 mg/m2/dose ? 1.82 m2 Treatment Plan BSA from Recorded weight), Intravenous, ONCE, 1 dose, On Thu06/29/23 at 1300, Administer over 10 Minutes New Bag 06/29/2023 1:15 PM EDT 900 mg 816 mL/hr documented in this encounter Care Teams Biotechnician Relationship Specialty Start Date End Date Mabel Middleton PA [address] [place] [phone] PCP - General Family Medicine 04/20/23 documented as of this encounter
--- OUTSIDE RECORDS SUMMARY | 2023-09-07 11:55 | XMS_ITS | Encounter Summary ---
Author Organization [facility] Address [facility] [place] [address] Care Team Providers Care Core Stacker Name Role Phone Mabel Middleton Primary Care Provider [phone] Encounter Details Date Type Department Care Team (Latest Contact Info) Description 07/22/2023 Travel Social History Tobacco Use Types Packs/Day Years Used Date Smoking Tobacco: Never Smokeless Tobacco: Never Alcohol Use Standard Drinks/Week Comments Never 0 (1 standard drink = 0.6 oz pur e alcohol) [facility] Utilities Answer Date Recorded In [...] place to sleep or slept in a retirement (including now)? No 05/28/2023 DH IPV Inpatient [...] 11:30 AM EDT Office Visit Hematology/Oncology at [address] [phone] Alexsander Thomas MD [facility] DR HEMATOLOGY/[place] [address] Marya Rosenberg APRN [address] [place] [address] HEMATOLOGY AND ONGOLOCY [place], [place] [id number] 09/28/2023 12:00 PM EDT Infusion Hematology Oncology at [address] [phone] documented as of this encounter Visit Diagnoses Not on filedocumented in this encounter Care Teams Core Stacker Relationship Specialty Start Date End Date Mabel Middleton PA [address] [place] [phone] PCP - General Family Medicine 04/20/23 documented as of this encounter
--- OUTSIDE RECORDS SUMMARY | 2023-09-07 11:55 | XMS_ITS | Encounter Summary ---
Author Organization [facility] Address [facility] [place] [address] Care Team Providers Care Graphic Art Sales Representative Name Role Phone Mabel Middleton Primary Care Provider [phone] Reason for Visit * Reason Onset Date Comments Prior Authorization 08/10/2023 Encounter Details Date Type Department Care Team (Late st Contact Info) Description 08/10/2023 Telephone Hematology [place] [phone] Denise Ferreira Prior Authorization Social History Tobacco Use Types Packs/Day Years Used Date Smoking Tobacco: Never Smokeless Tobacco: Never Alcohol Use Standard Drinks/Week Comments Never 0 (1 standard drink = 0.6 oz pur e alcohol) [facility] Utilities Answer Date Recorded In the past 12 months has e electric, gas, oil, or water company [...] place to sleep or slept in a jail (including now)? No 05/28/2023 DH IPV Inpatient [...] on file documented as of this encounter Miscellaneous Notes * Telephone Encounter - Denise Ferreira - 08/10/2023 11:05 AM EDT Procedure Prior Authorization Procedure/Cpt: 68945, [address]5434 Ct c/a/p Rationale: C34.12, C79.51, C78.7 Health Plan: [place] Authorizing Vendor: [employer] Service Order/Case ID: Authorization #: [id number] (Abdomen and Pelvis CT) [id number] (Chest CT) Effective Date: 08/10/2023 - 09/09/2023 Status: Approved Rendering Facility: [facility] documented in this encounter Plan of Treatment Upcoming Encounters Date Type Department Care Team (Late st Contact Info) Description 09/28/2023 11:30 AM EDT Office Visit Hematology/Oncology at [address] [phone] Alexsander Thomas MD [facility] DR HEMATOLOGY/[place] [address] Marya Rosenberg APRN [address] [place] [address] [place], [place] [id number] 09/28/2023 12:00 PM EDT Infusion Hematology Oncology at [address] [phone] documented as of this encounter Visit Diagnoses Not on filedocumented in this encounter Care Teams Graphic Art Sales Representative Relationship Specialty Start Date End Date Mabel Middleton PA [facility] [place] [phone] PCP - General Family Medicine 04/20/23 documented as of this encounter
--- OUTSIDE RECORDS SUMMARY | 2023-09-07 11:55 | XMS_ITS | Encounter Summary ---
Author Organization Counts Include [facility] Address [facility] [place] [address] Care Team Providers Care Glove Boarder Name Role Phone Mabel Middleton Primary Care Provider [phone] Reason for Referral * Consultation (Routine) - Closed Specialty Diagnoses / Procedures Referred By Contac t Referred To Contact Radiation Oncology Diagnoses 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 Secondary malignant neoplasm of brain Bone neoplasm secondary Alexsander Thomas MD [facility] DR HEMATOLOGY/[place] [address] Stj Rad Onc Office [address] [place] [phone] Referral ID Status Reason Start Date Expiration Date V isits Requested Visits Authorized [id number] Closed Consult, Test & Treat 05/27/2023 05/26/2024 1 1 Encounter Details Date Type Department Care Team (Late st Contact Info) Description 05/25/2023 3:00 PM EDT Office Visit Hematology/Oncology at [address] [phone] Alexsander Thomas MD [facility] HEMATOLOGY/[place] [address] Marya Rosenberg APRN [address] [place] [address] [place] [address] 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; Secondary malignant neoplasm of liver; Secondary malignant neoplasm of brain; Bone neoplasm secondary; High risk medication use Social History Tobacco Use Types Packs/Day Years Used Date Smoking Tobacco: Never Smokeless Tobacco: Never Alcohol Use Standard Drinks/Week Comments Never 0 (1 standard drink = 0.6 oz pur e alcohol) [facility] Utilities Answer Date Recorded In the past 12 months has th e electric, gas, oil, or water [employer] threatened to shut off services in your [...] Sign Reading Time Taken Comments Blood Pressure 148/72 05/25/2023 2:59 PM EDT Pulse 91 05/25/2023 2:59 PM EDT Temperature 36.6 ??C (97.8 ??F) 05/25/2023 2:59 PM ED T Respiratory Rate 18 05/25/2023 2:59 PM EDT Oxygen Saturation 98% 05/25/2023 2:59 PM EDT Inhaled Oxygen Concentration - - Weight 70.2 kg (154 lb 12.8 oz) 05/25/2023 2:59 PM EDT Height 170.5 cm (5' 7.13) 05/25/2023 2:59 PM ED T Body Mass Index 24.15 05/25/2023 2:59 PM EDT documented in this encounter Progress Notes * Alexsander Thomas MD - 05/25/2023 3:00 PM EDT Images from the original note were not included. Hematology & Medical Oncology [address] [phone] Daniele Chan is being seen for the evaluation of lung cancer. Assessment & Plan: Daniele Chan is a 62 y.o. 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 I counseled the patient and his and their friend Trena who is an RN who works in hospice and is a crucial support for Jesus and his about the diagnosis, pathology results, imaging findings, tumor staging and the implications of this information on the prognosis and the available treatment. While he is relatively asymptomatic from his fairly extensive disease burden I do think he is starting to manifest some significant symptoms with the left- sided discomfort he is experiencing. His performance status remains excellent. while we were hopeful that there would be be an actionable drivermutation identified we did not find such a mutation. While there perhaps could be a role for osimertinib in the future given the rarity of the alteration identified and the lack of compelling data that osimertinib will be active I would not utilize it in the first-line. Discussed that I would recommend systemic therapy with carboplatin pemetrexed and pembrolizumab. Wediscussed the potential side effects of systemic therapy including fatigue, hair loss, nausea/vomiting, bowel changes, taste changes, mouth sores, neuropathy, myelosuppression with an increase risk of serious infections, need for blood transfusions, organ injury, rashes allergic reactions and immune mediated toxicities among others. Explained that they may stop treatment at any time and they do not have to pursue any treatment if they do not wish to. The patient expressed that they would like to proceed with treatment. I also think given the extensive osseous metastases particularly in the clivus and cervical spine that he should meet with radiation oncology. I more concerned about those sites namely small asymptomatic brain metastases but those will also need to be considered. Knowing that we do not have a targeted option I do think consideration of treatment sooner rather than later would be advisable though I would try to start with systemic therapy as soon as possible and then sequencing of any palliativeradiation that needs to be done. Plan: -Referral to radiation oncology -Schedule for cycle 1 carboplatin pemetrexed pembrolizumab. I sent prescriptions for folic acid andprochlorperazine to his pharmacy -They have been connected to [facility] for this Thursday - Liquid biopsy today for NGS Alexsander Thomas MD, [place] 05/25/2023 Medical Oncology & Hematology [facility] CC: KISHOR Moss Time Attestation: I certify spending at least 40 minutes in providing care to this patient on the day of the visit asreflected by the following activities: - review of his medical record in the chart - discussion of medical decision making - documenting the outcome of today's visit HPI/Interval History/Subjective: Last seen 05/11/2023 Starting to have some discomfort under his left arm Noted over the past 2 years that his breathing was just not quite right- frequent cough. Usually non-productive.. Had been prescribed some inhalers with some minimal benefit. Saw PCP in early March and was prescribed a PPI and also got a CXR which led to imaging below. Can do 3 flights of stairs but it is harder then it used to be. No weight loss. Has some chronic mid back pains-not Does note that lifting has gotten harder particularly in the last week. No headaches. No blurry vision A little more unsteady. No falls. Had a colonoscopy in mid 50s- no issues identified by his report Accompanied friend who is an oncology/afternoon babysitter Jennifer. Gotten COVID vaccine. 1 booster Social History/Support Network: Home situation: 36 years. . Lives in [facility]. 90 minutes. 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 Tobacco use: None. Mom smoked but not around them. 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 [id number]. 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 [employer] Alcohol use: Does not drink Drug use: Financial Distress: Social Determinants of Health Financial Resource Strain: Low Risk (05/11/2023) Overall Financial Resource Strain (CARDIA) Difficulty of Paying Living Expenses: Not hard at all Food Insecurity: No Food Insecurity (05/11/2023) Hunger Vital Sign Worried About Running Out of Food in the Last Year: Never true Ran Out of Food in the Last Year: Never true Transportation Needs: No Transportation Needs (05/11/2023) PRAPARE - Transportation Lack of Transportation (Medical): No Lack of Transportation (Non-Medical): No Physical Activity: Not on file Housing Stability: Low Risk (05/11/2023) Housing Stability Vital Sign Unable to Pay [...] Abuse Present: no Utilities: Not At Risk (05/11/2023) [facility] Utilities Threatened with loss of utilities: No Likes working on his wood pil 7-8 cords a year Likes outside service: [...] Tumor Proportion Score (TPS): % Expression: 1-2% Non-Video Intern Final DIAGNOSIS Positive for Malignancy DISCUSSION Lymph node, station 11L (EBUS-guided FNA): Consistent with metastatic adenocarcinoma of lung origin. The immunoperoxidase stain results supports the diagnosis. Non-Video Intern Final DIAGNOSIS Positive for Malignancy DISCUSSION Lymph node, station 4R (EBUS-guided FNA): Consistent with metastatic adenocarcinoma of lung origin. (Tumor is in the cell block section) Molecular Data: previously reported but uncommon missense variant in ser tumors. Previous reports suggest this variant (p.D761Y) emay occur in sometumors as an acquired resistance variant following EGFR TKI treatment (PMID: 20402949; [id number]). Tumors with this rare EGFRvariant may responde to 3rd generation EGFR i nhibitiors (PMID: 38084874; [id number]; [id number]). Treatment Course: No data to display I reviewed the problem list, allergies, medications, past medical history, social history and family history within the EPIC encounter. Pertinent details are noted above. Pertinent positives and negative from the Review of Systems are as summarized above in the HPI. Physical Exam: Wt Readings from Last 3 Encounters: 05/11/23 69 kg (152 lb 3.2 oz) 04/22/23 66.7 kg (147 lb) 04/20/23 67.2 kg (148 lb 2.4 oz) Temp Readings from Last 3 Encounters: 05/11/23 36.3 ??C (97.3 ??F) (Temporal) 04/22/23 36.4 ??C (97.5 ??F) (Tympanic) 04/20/23 36 ??C (96.8 ??F) (Temporal) BP Readings from Last 3 Encounters: 05/11/23 130/76 04/22/23 131/87 04/20/23 153/90 Pulse Readings from Last 3 Encounters: 05/11/23 73 04/22/23 77 04/20/23 75 There is no height or weight on file to calculate BSA. Wt Readings from Last 3 Encounters: 05/11/23 69 kg (152 lb 3.2 oz) 04/22/23 66.7 kg (147 lb) 04/20/23 67.2 kg (148 lb 2.4 oz) KPS Score ECOG Grade Definition 90-100 [...] Judgment: Judgment normal. Review of Laboratory Data: No results found for this or any previous visit (from the past 72 hour(s)). Review of Imaging Data: Review of Pathology Data: I personally reviewed the reports of the pathology as detailed in the oncology overview above. documented in this encounter Plan of Treatment Upcoming Encounters Date Type Department Care Team (Late st Contact Info) Description 09/28/2023 11:30 AM EDT Office Visit Hematology/Oncology at [address] [phone] Alexsander Thomas MD [facility] DR HEMATOLOGY/[place] [address] Marya Rosenberg APRN [address] [place] [address] HEMATOLOGY AND [place]GOLOCY [place], [place] [id number] 09/28/2023 12:00 PM EDT Infusion Hematology Oncology at [address] [phone] Scheduled Orders Name Type Priority Associated Diagnoses Orde r Schedule Magnesium Lab STAT 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 Secondary malignant neoplasm of liver Once a week for 48 Occurrences starting 05/27/2023 until 05/26/2024 Comprehensive metabolic panel (non-fasting) Lab STAT 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 Secondary malignant neoplasm of liver Once a week for 48 Occurrences starting 05/27/2023 until 05/26/2024 CBC (with Diff) Lab STAT 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 Secondary malignant neoplasm of liver Once a week for 48 Occurrences starting 05/27/2023 until 05/26/2024 TSH Lab Routine 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 Secondary malignant neoplasm of liver High risk medication use Every 3 weeks for 24 Occurrences starting 05/27/2023 until 05/26/2024 T4, free Lab Routine 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 Secondary malignant neoplasm of liver High risk medication use Every 3 weeks for 24 Occurrences starting 05/27/2023 until 05/26/2024 Scheduled Referrals Name Type Priority Associated Diagnoses Orde r Schedule Referral to Radiation Oncology Outpatient Referral Routine 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 Secondary malignant neoplasm of brain Bone neoplasm secondary Ordered: 05/27/2023 documented as of this encounter Visit Diagnoses Diagnosis 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 Malignant neoplasm of upper lobe, bronchus or lung Secondary malignant neoplasm of liver Secondary malignant neoplasm of brain 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
--- OUTSIDE RECORDS SUMMARY | 2023-09-07 11:55 | XMS_ITS | Encounter Summary ---
Author Organization [facility] Address [facility] [place] [address] Care Team Providers Care Investment Executive Name Role Phone Mabel Middleton Primary Care Provider [phone] Reason for Visit * Consultation (Routine) - Closed Specialty Diagnoses / Procedures Referred By Contac t Referred To Contact Radiation Oncology Diagnoses 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 Secondary malignant neoplasm of brain Bone neoplasm secondary Alexsander Thomas MD [facility] DR HEMATOLOGY/[place] [address] St Rad Onc Office [address] [place] [id number] Referral ID Status Reason Start Date Expiration Date V isits Requested Visits Authorized [id number] Closed Consult, Test & Treat 05/27/2023 05/26/2024 1 1 Encounter Details Date Type Department Care Team (Late st Contact Info) Description 05/28/2023 3:30 PM EDT TH Visit (TeleHealth) Radiation Oncology at [address] [phone] Bisi Farnsworth MD [address] [place] [address] [place] [address] 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 Social History Tobacco Use Types Packs/Day Years Used Date Smoking Tobacco: Never Smokeless Tobacco: Never Alcohol Use Standard Drinks/Week Comments Never 0 (1 standard drink = 0.6 oz pur e alcohol) [facility] Utilities Answer Date Recorded In [...] in a intermediate (including now)? No 05/28/2023 IPV Inpatient Questions Answer Date Recorded Does [...] as of this encounter Progress Notes * Bisi Farnsworth MD - 05/28/2023 3:30 PM EDT Images from the original note were not included. Radiation Oncology Consult Note Bisi Farnsworth MD, MS [facility] PATIENT IDENTIFICATION: PATIENT NAME: Daniele Chan DATE OF : 1960 REFERRING PROVIDER: Dr Thomas PRIMARY CARE PROVIDER: KISHOR Moss REASON FOR CONSULTATION: St IV lung cancer with asymptomatic, high risk bone metastases DATE OF SERVICE: 05/28/2023 HISTORY OF PRESENT ILLNESS: Daniele is a 62M [address] with [address] IV NSCLC in the setting of chronic cough. Workup eventually demonstrated a 5cm primary LYNDA adenocarcinoma. Staging PET/CT 04/23/23 showed multiple metastases involving the lungs, liver and bone (involving multiple vertebral bodies and some of their posterior elements, sacrum, iliac bones, acetabulum, and several bilateral ribs). MRI brain 04/30/23 was also notable for several brain metastases as well as a clival and C2 metastasis. He has not yet started systemic therapy and is referred for consideration of palliative RT. He is on a T/H video visit today with his Monica and friend Jennifer who is a hospice worker withconsiderable experience caring for cancer patients. REVIEW OF SYSTEMS: On further questioning, he reports feeling well in his usual state of health. He has no complaints attributable to his lung cancer that he can think of. 05/28/2023 3:19 PM REVIEW OF SYSTEMS Constitutional Fatigue, lack of energy Ear / nose / throat / mouth None of the above Eyes None of the above Respiratory Don't know Cardiovascular None of the above Gastrointestinal None of the above Skin, hair None of the above Musculoskeletal None of the above Neurological None of the above Hematologic / Lymphatic None of the above Genitourinary None of the above A comprehensive 14 point review of systems was conducted with this patient and is otherwise negative except as documented above. PAST MEDICAL AND SURGICAL HISTORY: History reviewed. No pertinent past medical history. Past Surgical History: Procedure Laterality Date INGUINAL HERNIA REPAIR PRO [facility] EBUS GUIDED SAMPL 3/> NODE STATION/STRUX N/A 04/22/2023 BRONCH, W ENDOBRONCHIAL ULTRASOUND (EBUS) GUIDED SAMPLING, 3+ NODES (WRVU 4.96) performed by Luciano Zhao MD at [facility] MAIN OR CONTRAINDICATIONS TO RADIATION THERAPY: None Prior Radiation to this Site: No Active Connective Tissue Disease (Lupus or Scleroderma) No MEDICATIONS: Medications 05/28/23 2018 Medication Sig Taking? acetaminophen (Tylenol) 650 mg ER tablet Take 650 mg by mouth every 8 hours as needed for Pain. Do not exceed 6 tabs in 24 hours Yes LORazepam (Ativan) 0.5 mg tablet 0.5 mg. Yes folic acid (Vitamin B9) 1 mg tablet Take 1 tablet by mouth daily. Yes prochlorperazine (Compazine) 10 mg tablet Take 1 tablet by mouth every 6 hours as needed for Nausea. 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 [employer] Smoking: never Alcohol no Illicits: no FAMILY HISTORY: Family History Problem Relation Age of Onset Ovarian Cancer Mother Lung Cancer Maternal Grandfather PHYSICAL EXAM - deferred (phone visit due to weather event) TODAY'S PERFORMANCE STATUS: KPS Score ECOG Grade Definition XX 90-100 0 Fully active, able to carry on all pre-disease performance without restriction 70-80 1 Restricted in physically strenuous activity [...] selfcare; totally confined to bed or chair IMAGING REVIEW: PET/CT 04/23/23 Multiple FDG avid metastases, several high risk lesions per below Cheesemaker Helper Images: C2 T5 L1 L5/S1 RT acetabulum LT acetabulum LT femoral head Bulky site >2cm - RT rib #4 MRI Brain Multiple brain metastases, also LT clivus C2 ASSESSMENT / PLAN: Daniele is a 62 y.o. year-old with stage IV non-small cell lung cancer, currently scheduled start palliative systemic chemoimmunotherapy next week. Recent staging PET/CT showed multiple high risk, but asymptomatic bone metastases. The concept of high risk metastases is considered in light of the recently published study by Dimas et al in JCO 2022, which was a randomized phase 2 trial of prophylactic palliative radiotherapyto high risk of metastases, as defined by any one of the following criteria (bold where applicable to him): (1) bulky site of disease in bone (?2 cm); (2) disease involving the hip (acetabulum, femoral head, and femoral neck), shoulder (acromion, glenoid, and humeral head), or sacroiliac joints; (3) disease in long bones occupying one third to two third of the cortical thickness (humerus, radius, ulna, clavicle, femur, tibia, fibula, metacarpals, and phalanges); (4) disease in vertebrae of the junctional spine (C7-T1, T12-L1, and L5-S1) and/or disease with posterior element involvement. Numbers were small in both arms, but results showed a decrease in the risk of skeletal related events such as pathologic fracture or need for subsequent palliative RT. In addition there was a slight prolongation of overall survival in patients who received prophylactic radiotherapy. There were no increased incidence of radiation related toxicity noted on study. Notably, all patients were activelyundergoing palliative systemic treatment (there were no new diagnoses among these patients.) Given that Jesus has not yet started chemotherapy, I discussed with Dr Thomas that it would be reasonable to proceed with systemic treatment sooner rather than later, especially because the start of RT would delay the start of systemic therapy by at least 2-3 weeks. In [...] this could be easily incorporated into that treatment plan as radiation treatment now may impact future treatment of his brain metastases. With the discussion in mind, Daniele would like to proceed with chemotherapy. Follow-up in radiation oncology can be scheduled on an as-needed basis, after restaging studies or if he develops symptomatic progression. SUMMARY OF PLAN / RECOMMENDATION: Intent of therapy: Palliative Defer RT at this time F/u as needed TIME ATTESTATION: I certify spending at least 60 minutes in providing care to this patient today, 05/28/23 as reflected by the following activities: - review of his medical record in the chart, including interpretation of imaging, laboratory and pathologic studies referenced above - discussion of the above with the patient as part of shared medical decision making - documenting the outcome of today's visit as above BISI FARNSWORTH MD, MS * Tracy Woodson RN - 05/28/2023 3:30 PM EDT RADIATION ONCOLOGY NURSING INITIAL NURSING ASSESSMENT Chief complaint: bone mets NPW ADVANCE DIRECTIVES: did not discuss today PRESENTING SYSTEMS and PATHOLOGY: Telephone call prior to telehealth visit with Dr Farnsworth REVIEW OF SYSTEMS: see questionnaire Medical history: History reviewed. No pertinent past medical history. 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 Family History of cancer: Family History Problem Relation Age of Onset Ovarian Cancer Mother Lung Cancer Maternal Grandfather Prior Radiotherapy: No Site: Date: Facility: Prior Chemotherapy: No Drug: Oncologist- LastTreatment: Prior hormone treatment/medications: No Drug: LastTreatment: RADIATION SPECIFIC REVIEW: NO: YES: Claustrophobia or requires sedation for MRIs X Allergy to CT or MRI contrast agent or iodine or shellfish X Diabetic and on metformin X Metal in body, implanted device, worked with metal, body piercings,braces X hearing device X Dentures X Pacemaker X Difficulty breathing while lying flat X H/O Sclera derma X Currently X Active lupus X Kidney problems/creatinine X Balance difficulty: No At risk for fall: No If yes, actions implemented to prevent fall: Patient/family instructed to avoid independent ambulation. Use wheelchair and ask for assistance of staff while in the clinic. ADL [ X ] no limits [ ] needs dressing assistance [ ] needs meal assistance Assistive device:[ X ]none [ ]cane [ ]walker [ ]wheelchair [ ]other: explain PAIN ASSESSMENT: [ 0 ] out of 10 Location: Chronic low back pain Description: [ ] Dull [ ] Sharp [ ] Burning [ ] Throbbing [ ] Radiating [ ] Continuous [ ]Intermittent Aggravating Factors: [ ] Movement [ ] Position [ ]Immobility [ ]Other Alleviating Factors: [ X ]Medication [ ] Positioning [ ] Other Current Pain Management Plan: [ X ]Satisfied [ ] Not satisfied SOCIAL ASSESSMENT: See EDH social assessment information entered. Support Systems: transportation plan: [X ]private vehicle [ ] RCT needs Social Work referral [ ] Unknown at this time needs Social Work referral Barriers to treatment: None Referrals/Interventions: Will see PHARMACY INFORMATICIST per routine during SIM appointment. TEACHING: Learning Assessment Does the primary learner have any barriers to learning?: No Barriers How does the primary learner prefer to learn new concepts?: Reading, Pictures/Video, Kinesthetic, Demonstration Education material provided: Will be provided during SIM appointment per routine documented in this encounter Plan of Treatment Upcoming Encounters Date Type Department Care Team (Late st Contact Info) Description 09/28/2023 11:30 AM EDT Office Visit Hematology/Oncology at [address] [phone] Alexsander Thomas MD [facility] DR HEMATOLOGY/[place] [address] Marya Rosenberg APRN [address] [place] [address] HEMATOLOGY AND ONGOLOCY [place], [place] [id number] 09/28/2023 12:00 PM EDT Infusion Hematology Oncology at [address] [phone] documented as of this encounter Visit Diagnoses Diagnosis 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 Malignant neoplasm of upper lobe, bronchus or lung documented in this encounter Care Teams Investment Executive Relationship Specialty Start Date End Date Mabel Middleton PA [address] [place] [address] PCP - General Family Medicine 04/20/23 documented as of this encounter
--- OUTSIDE RECORDS SUMMARY | 2023-09-07 11:55 | XMS_ITS | Encounter Summary ---
Author Organization [facility] Address [facility] [place] [address] Care Team Providers Care Health Promoter Name Role Phone Mabel Middleton Primary Care Provider [phone] Reason for Visit * Reason Onset Date Comments Follow-up 06/08/2023 First chemo Encounter Details Date Type Department Care Team (Late st Contact Info) Description 06/08/2023 Telephone Hematology/Oncology at [address] [phone] Anjana Wesley, CLIFF Follow-up (First chemo) Social History Tobacco Use Types Packs/Day Years Used Date Smoking Tobacco: Never Smokeless Tobacco: Never Alcohol Use Standard Drinks/Week Comments Never 0 (1 standard drink = 0.6 oz pur e alcohol) [facility] Utilities Answer Date Recorded In the [...] place to sleep or slept in a [place] health care facility (including now)? No 05/28/2023 DH IPV Inpatient [...] encounter Miscellaneous Notes * Telephone Encounter - Anjana Wesley RN - 06/08/2023 1:02 PM EDT Post chemo call Placed call to patient to assess tolerance of first time chemotherapy treatment. Regimen received: carboplatin/ pembrolizumab/ pemetrexed Date of treatment: 06/03/23 Assessment: Symptom Present (yes[y]/no[n]/ stable[s] from baseline) Additional information/Assessment GI Nausea y took compazine wit relief Vomiting n Nausea medication y Tolerating diet y Maintaining fluid intake (indicate volume) y Bowel movements regular y a little tight using shredded wheat with good results Diarrhea n Mouth sores n General Pain (0 none - 10 high) 0 Using pain medications n Fever n Neuro Level of fatigue (0 - 5) 3 Falls n Numbness/tingling in arms/legs n Cognitive changes n Skin Skin changes n Pinpoint red dots n Other s/s of bleeding n IV site/VAD problems n Musculoskeletal Joint swelling or tenderness n Arthralgias or myalgias n Voiding problems n Color and quality of urine Clear yellow Cardio-pulmonary Shortness of breath n Chest pain n Swelling in legs n Calf pain or tenderness n Cough (productive/non-productive) n Psychosocial Coping y I Need prescription renewals Other issues : Anxiety. Support provided Education provided: Plan: Back in clinic on June 23 Reinforced to patient/care-caregivers homecare to call facility 15/09 with any new/worsening signs and symptoms orconcerns or questions. Phone number provided. Pt verbalized understanding and is in agreement with plan. documented in this encounter Plan of Treatment Upcoming Encounters Date Type Department Care Team (Late st Contact Info) Description 09/28/2023 11:30 AM EDT Office Visit Hematology/Oncology at [address] [phone] Alexsander Thomas MD [facility] DR HEMATOLOGY/[place] [address] Marya Rosenberg [address] H[place]OLOGY [place], [place] [id number] 09/28/2023 12:00 PM EDT Infusion Hematology Oncology at [address] [phone] documented as of this encounter Visit Diagnoses Not on filedocumented in this encounter Care Teams Health Promoter Relationship Specialty Start Date End Date Mabel Middleton PA [address] [place] [phone] PCP - General Family Medicine 04/20/23 documented as of this encounter
--- OUTSIDE RECORDS SUMMARY | 2023-09-07 11:55 | XMS_ITS | Encounter Summary ---
Author Organization [facility] Address [facility] [place] [address] Care Team Providers Care Chain Hoist Operator Name Role Phone Mabel Middleton Primary Care Provider [phone] Encounter Details Date Type Department Care Team (Late st Contact Info) Description 06/03/2023 Notes Only Hematology/Oncology at [address] [phone] Amber Benton, METAL WASHING MACHINE OPERATOR OFFICE OF CARE MANAGEMENT Social History Tobacco Use Types Packs/Day Years Used Date Smoking Tobacco: Never Smokeless Tobacco: Never Alcohol Use Standard Drinks/Week Comments Never 0 (1 standard drink = 0.6 oz pur e alcohol) [facility] Utilities Answer Date Recorded In the past [...] as of this encounter Progress Notes * Amber Benton, METAL WASHING MACHINE OPERATOR - 06/03/2023 12:51 PM EDT Reason for Referral: Brief assessment of social and emotional needs. Met with Daniele during his first infusion visit today. to introduce myself and role of social media director to assess/address barriers to getting to and through treatments; address support needs and connect with community services and resources as needed. Introduced myself to his Monica and their friend Raul. Family/Social Supports: Daniele identified his friend Raul as his and his 's primary support. She has been their neighbor for 20+ years and is assisting Daniele with care coordination and applying for supports and services. His of 36 years is his other support. Raul shared that Daniele is concerned about his and she has some memory issues. Living Situation/Daily Activities/Transportation: Daniele manages the daily chores and activities. He lives about 1.5 hours away and does not expect any issues with transportation. He was granted $1250 from the [facility] in his area and he is using this for travel costs. 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 He went out on FMLA about 4 weeks ago. He has a large bank of sick and personal time to use. He plans on starting the process of applying for SSDI and Raul is going to assist him with this. He has [employer] for insurance. Advance Directives: Daniele is in the process of updating his advance directive with Palliative Care at their local hospital. Requested a copy once he completes his new document for his medical record. Utilization of Community Resources: [place] [facility] Adjustment to Illness/Mental Health Concerns: Daniele is very appreciative of the support and assistance his friend/neighbor Raul is providing both he and his . He shared their [facility] town community is very supportive too. Need to assess further. Identified Needs: Daniele did not identify any specific needs at this time. Referrals: None at this time. Social Work Interventions: Brief assessment Supportive Counseling Advance care planning Financial resources Community Resource Plan: Informed pt of METAL WASHING MACHINE OPERATOR availability and contact information. Will follow to assess/address psychosocial needs. RAFAEL Interiano, POTATO CHIP FRIER, OSW-C [employer] Manager [facility] documented in this encounter Plan of Treatment Upcoming Encounters Date Type Department Care Team (Late st Contact Info) Description 09/28/2023 11:30 AM EDT Office Visit Hematology/Oncology at [address] [phone] Alexsander Thomas MD [facility] DR HEMATOLOGY/[place] [address] Marya Rosenberg APRN [address] [place] [address] HEMATOLOGY AND ONGOLOCY [place], [place] [id number] 09/28/2023 12:00 PM EDT Infusion Hematology Oncology at [address] [phone] documented as of this encounter Visit Diagnoses Not on filedocumented in this encounter Care Teams Chain Hoist Operator Relationship Specialty Start Date End Date Mabel Middleton PA [address] [place] [phone] PCP - General Family Medicine 04/20/23 documented as of this encounter
--- OUTSIDE RECORDS SUMMARY | 2023-09-07 11:55 | XMS_ITS | Encounter Summary ---
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 Procedures [facility] PET CT Skull Base to Mid-thigh Marya Rosenberg APRN [address] [place] [address] [place] [address] [place] [address] Referral ID Status Reason Start Date Expiration Date V isits Requested Visits Authorized [id number] Closed Specialty Service Requested 08/17/2023 02/15/2025 1 1 Encounter Details Date Type Department Care Team (Late st Contact Info) Description 08/17/2023 11:00 AM EDT Office Visit Hematology/Oncology at [address] [phone] Alexsander Thomas MD [facility] HEMATOLOGY/[place] [address] Marya Rosenberg APRN [address] [place] [address] [place] [address] 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; Bone neoplasm secondary; Secondary malignant neoplasm of liver Social History Tobacco Use Types Packs/Day Years Used Date Smoking Tobacco: Never Smokeless Tobacco: Never Alcohol Use Standard Drinks/Week Comments Never 0 (1 standard drink = 0.6 oz pur e alcohol) [facility] Utilities Answer Date Recorded In the past 12 months has th e electric, gas, oil, or water [employer] threatened to shut off services in your [...] Sign Reading Time Taken Comments Blood Pressure 111/66 08/17/2023 10:56 AM EDT Pulse 81 08/17/2023 10:56 AM EDT Temperature 35.9 ??C (96.6 ??F) 08/17/2023 1 0:56 AM EDT Respiratory Rate 18 08/17/2023 10:5 6 AM EDT Oxygen Saturation 99% 08/17/2023 10: 56 AM EDT Inhaled Oxygen Concentration - - Weight 72.5 kg (159 lb 12.8 oz) 024 10:56 AM EDT Height 167.2 cm (5' 5.83) 08/17/2023 1 0:56 AM EDT Body Mass Index 25.93 08/17/2023 10:56 AM EDT documented in this encounter Progress Notes * Marya Rosenberg, AZAM - 08/17/2023 11:00 AM EDT Images from the original note were not included. Hematology & Medical Oncology [place] [phone] Daniele Chan is being seen for the [...] osseous, pulmonary and brain metastases. No actionable cement mixer driver mutation was identified. While there perhaps [...] is so far tolerating that well. Plan: CT scan done 07/16/23 locally, images not yet available but reports generally lean toward someresponse. They did not have a complete accurate comparison available. There is mention of a 20% endplate compression fracture to the T7 vertebrae. - Pt is asymptomatic from compression fx. We did discuss using caution during strenuous activity. - Labs and toxicities assessed and acceptable for ongoing treatment. Plan for C4 carbo/pem/pem today. - RTC in 3 weeks with PET prior and consideration of maintenance therapy. - Denosumab non-preferred for his insurance, treating with zometa for bone metastasis. - He tells me he needs a very small filling. To err on the side of caution, procedures should be avoided when he is receiving zometa. I have sent a letter to his dentist with our contact information so we can discuss how urgent the dental work is. If needed, we can hold zometa and he can get the work done. # Hypothyroidism: - 50mcg levothyroxine at baseline prior to treatment. TSH has been fluctuating, no changes made as of yet. Reviewed proper administration of the med and it seems he is taking it appropriately. Marya Rosenberg, HOME SALES SERVICE PROFESSIONAL 08/17/2023 Medical Oncology & Hematology [facility] CC: KISHOR Moss HPI/Interval History/Subjective: Last seen 06/29/2023 Daniele is here today accompanied by his Kathi and their friend Raul. He is generally feeling well today. Continues to be pain free. Appetite is good, weight is stable. No nausea or vomiting, no diarrhea. His eyes have been red and itchy. This has happened in the past. He has not tried any drops or anything, some blurry vision when his eyes are dry. Breathing is stable. Can still do stairs. No real cough. No joint issues. No headaches. No falls. Had a colonoscopy in mid 50s- no issues identified by his report Gotten COVID vaccine. 1 booster Social History/Support Network: Home situation: 36 years. Lives in [place]. 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 Tobacco use: None. Mom smoked but not around them. 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 [phone]. 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 3. Keshav metastases in the left anterior mediastinal, bilateral [...] Tumor Proportion Score (TPS): % Expression: 1-2% Non-Community Health Advocate Final DIAGNOSIS Positive for Malignancy DISCUSSION Lymph node, station 11L (EBUS-guided FNA): Consistent with metastatic adenocarcinoma of lung origin. The immunoperoxidase stain results supports the diagnosis. Non-Community Health Advocate Final DIAGNOSIS Positive for Malignancy DISCUSSION Lymph node, station 4R (EBUS-guided FNA): Consistent with metastatic adenocarcinoma of lung origin. (Tumor is in the cell block section) Molecular Data: previously reported but uncommon missense variant in ser tumors. Previous reports suggest this variant (p.[id number]) emay occur in sometumors as an acquired resistance variant following EGFR TKI treatment (PMID: 83194471; [id number]). Tumors with this rare EGFRvariant may responde to 3rd generation EGFR i nhibitiors (PMID: 25601468; [id number]; [id number]). Treatment Course: 06.03.23 C1 carboplatin/pemetrexed/pembro 06.29.23 C2 Carbo/pem/pem 07.16.23 CT c/a/p, images not yet available - no correct local comparison 07.22.23 C3 carbo pem/pem 08.17.23 C4 carbo/pem/pem 06/29/2023 1:15 PM 06/29/2023 1:33 PM 06/29/2023 1:36 PM 07/22/2023 12:35 PM 07/22/2023 12:52 PM 07/22/2023 1:26 PM 07/22/2023 1:43 PM ONCBCN ONCOLOGY (AMB) Day, Cycle Day 1, Cycle 3 CARBOplatin (Paraplatin) IV 434 mg 434 mg cyanocobalamin (Vitamin B-12) 1,000 mcg/mL SubQ 1,000 mcg denosumab 120 mg/1.7 mL (70 mg/mL) (Xgeva) SubQ 120 mg pembrolizumab 25 mg/mL (Keytruda) IV 200 mg PEMEtrexed disodium (Alimta) IV 500 mg/m2/dose = 900 mg 500 mg/m2/dose = 900 mg zoledronic acid in mannitol-sodium chloride 0.9% 4 mg/100 mL (Zometa) IV 4 mg I reviewed the problem list, allergies, medications, past medical history, social history and family history within the EPIC encounter. Pertinent details are noted above. Pertinent positives and negative from the Review of Systems are as summarized above in the HPI. Physical Exam: Wt Readings from Last 3 Encounters: 08/17/23 72.5 kg (159 lb 12.8 oz) 07/22/23 69.4 kg (153 lb) 06/29/23 68.9 kg (151 lb 12.8 oz) Temp Readings from Last 3 Encounters: 08/17/23 35.9 ??C (96.6 ??F) (Temporal) 07/22/23 36.7 ??C (98 ??F) (Temporal) 06/29/23 36.4 ??C (97.6 ??F) (Temporal) BP Readings from Last 3 Encounters: 08/17/23 111/66 07/22/23 122/70 06/29/23 107/66 Pulse Readings from Last 3 Encounters: 08/17/23 81 07/22/23 89 06/29/23 78 Body surface area is 1.84 meters squared. Wt Readings from Last 3 Encounters: 08/17/23 72.5 kg (159 lb 12.8 oz) 07/22/23 69.4 kg (153 lb) 06/29/23 68.9 kg (151 lb 12.8 oz) KPS Score ECOG Grade [...] Judgment: Judgment normal. Review of Laboratory Data: 08/17/23 WBC 4.57, H/H 13.9/42.4, plt 154,000, ANC 2340, Na 141, K 4.0, Cl 105, CO2 28.7, BUN 22, Creat 1.1,glucose 92, Ca 8.4, Mag 2.0, t bili 0.43, AST 23, ALT 65, alk phos 61, t protein 7.4, albumin 3.4, TSH 5.10, Free T4 0.69 07/22/23 WBC 4.56, hemoglobin 15.1, hematocrit 45.1, platelets 222,000, absolute neutrophils 2370, sodium 141, potassium 4.3, chloride 104, BUN 20, creatinine 1.1, glucose 81, calcium 9.6, magnesium 2.2, T. bili 0.5, AST 18, ALT 53, alk phos 72, total protein 7.8, albumin 3.4, TSH 1.73 down from 5.92, free T4 0.87 Up from 0.60 06/29/23 WBC 6.36, H/H 14.2/43.1, plt 216, ANC 3690, Na 143, K 4.0, Cl 105, CO2 28.8, BUN 25, Creat 1.2, glucose 89, Ca 8.8, Mag 2.1, t bili 0.3, AST 10, ALT 23, alk phos 82, t protein 7.5, albumin 3.3, TSH 5.92, Free T4 0.60 4.. WBC 6.55, H/H 14.6/44.2, plt 184, ANC 3930, Na 141, K 4.9, Cl 104, CO2 30.1, BUN 20, Creat 1.3, glucose 106, Ca 8.5, Mag 2.1, t bili 0.3, AST 13, ALT 26, alk phos 73, t protein 7.3, albumin 3.1, TSH 4.35, Free T4 0.62 Review of Imaging Data: 07.16.23 CT c/a/p, as above. Compared to Mar CT scans. Review of Pathology Data: No new data documented in this encounter Plan of Treatment Upcoming Encounters Date Type Department Care Team (Late st Contact Info) Description 09/28/2023 11:30 AM EDT Office Visit Hematology/Oncology at [address] [phone] Alexsander Thomas MD [facility] DR HEMATOLOGY/[place] [address] Marya Rosenberg APRN [address] [place] [address] HEMATOLOGY AND ONGOLOCY [place], [place] [id number] 09/28/2023 12:00 PM EDT Infusion Hematology Oncology at [address] [phone] documented as of this encounter Results * [facility] PET CT Skull Base to Mid-thigh (09/04/2023 9:10 AM EDT) [employer] WORKSTATION ID [id number] DH RAD Anatomical Region Laterality Modality Positron Emissio [...] have questions please contact the health healthcare network pricing consultant that requested your imaging first. ? Electronically signed by: Arturo Prater MD, [facility] ([phone]), at 09/04/2023 3:06 PM Narrative 09/04/2023 3:06 PM EDT EXAMINATION: [facility] PET CT SKULL BASE TO MID-THIGH CLINICAL HISTORY: restaging stage IV Lung Ca C34.12, Malignant neoplasm of upper lobe, left bronchus or lung - C79.51, Secondary malignant neoplasm of bone - C78.7, Secondary malignant neoplasm of liver and intrahepatic bile duct s/p 4 cycles of chemoimmunotherapy 08/17/2023 TECHNIQUE: Following IV injection of 70-dsxdox-0-deoxyglucose (FDG) a standard uptake of approximately 60 [...] Note Arturo Prater MD - 09/04/2023 EXAMINATION: [facility] PET CT SKULL BASE TO MID-THIGH CLINICAL HISTORY: restaging stage IV Lung Ca C34.12, Malignant neoplasm of upper lobe, left bronchus or lung -C79.51, 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
--- OUTSIDE RECORDS SUMMARY | 2023-09-07 11:55 | XMS_ITS | Encounter Summary ---
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 Procedures [facility] PET CT Skull Base to Mid-thigh Marya Rosenberg APRN [address] [place] [address] [place] [address] [place] [address] Referral ID Status Reason Start Date Expiration Date V isits Requested Visits Authorized [id number] Closed Specialty Service Requested 08/17/2023 02/15/2025 1 1 Reason for Visit * Diagnostic Test (Routine) - Closed Specialty Diagnoses / Procedures Referred By Contac t Referred To Contact Radiology Diagnoses 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 Procedures [facility] PET CT Skull Base to Mid-thigh Marya Rosenberg APRN [address] [place] [address] [place] [address] [place] [address] Referral ID Status Reason Start Date Expiration Date V isits Requested Visits Authorized [id number] Closed Specialty Service Requested 08/17/2023 02/15/2025 1 1 Encounter Details Date Type Department Care Team (Late st Contact Info) Description 09/04/2023 9:00 AM EDT - 09/04/2023 11:59 PM EDT Hospital Encounter [place] [phone] Marya Rosenberg, [address] HEMATOLOGY AND [place], [place] [address] 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 Utilities Answer Date Recorded In the [...] place to sleep or slept in a half-way (including now)? No 05/28/2023 DH IPV Inpatient [...] on file documented as of this encounter Medications at Time of Discharge Medication Sig Dispensed Refills Start Date End Date levothyroxine (Synthroid) 50 mcg tabletIndications:Hypothy roidism, unspecified type Take 1 tablet by mouth daily. 90 tablet 3 06/29/2023 acetaminophen (Tylenol) 650 mg ER tablet Take 650 mg by mouth every 8 hours as needed for Pain. Do not exceed 6 tabs in 24 hours LORazepam (Ativan) 0.5 mg tablet 0.5 mg. 04/21/2023 prochlorperazine (Compazine) 10 mg tablet Take 1 tablet by mouth every 6 hours as needed for Nausea. 30 tablet 3 05/25/2023 folic acid (Vitamin B9) 1 mg tablet Take 1 tablet by mouth daily. 30 tablet 6 05/25/2023 documented as of this encounter Plan of Treatment Upcoming Encounters Date Type Department Care Team (Late st Contact Info) Description 09/28/2023 11:30 AM EDT Office Visit Hematology/Oncology at [address] [phone] Alexsander Thomas MD [facility] HEMATOLOGY/[place] [address] Marya Rosenberg APRN [address] [place] [address] HEMATOLOGY AND ONGOLOANT [place], [place] [address] 09/28/2023 12:00 PM EDT Infusion Hematology Oncology at [address] [phone] documented as of this encounter Procedures Procedure Name Priority Date/Time Associated Diagnosis Comments [facility] PET CT SKULL BASE TO MID-THIGH Routine 09/04/2023 9:10 AM EDT 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 ? Electronically signed by: Arturo Prater MD, [facility] ([phone]), at 09/04/2023 3:06 PM Narrative 09/04/2023 3:06 PM EDT EXAMINATION: [facility] PET CT SKULL BASE TO MID-THIGH CLINICAL HISTORY: restaging stage IV Lung Ca C34.12, Malignant neoplasm of upper lobe, left bronchus or lung - C79.51, Secondary malignant neoplasm of bone - C78.7, Secondary malignant neoplasm of liver and intrahepatic bile duct s/p 4 cycles of chemoimmunotherapy 08/17/2023 TECHNIQUE: Following IV injection of 07-blzlik-2-deoxyglucose (FDG) a standard uptake of approximately 60 [...] Note Arturo Prater MD - 09/04/2023 EXAMINATION: [facility] PET CT SKULL BASE TO MID-THIGH CLINICAL HISTORY: restaging stage IV Lung Ca C34.12, Malignant neoplasm of upper lobe, left bronchus or lung -C79.51, Secondary malignant neoplasm of bone - C78.7, Secondary malignant neoplasmof liver and intrahepatic bile duct s/p 4 cycles of chemoimmunotherapy 08/17/2023 TECHNIQUE: Following IV injection of 92-ipazji-0-deoxyglucose (FDG) astandard uptake of approximately 60 minutes, [...] who have questions please contactthe health healthcare administration internship that requested your imaging first. Electronically signed by: Arturo Prater MD, [facility]([phone]), at 09/04/2023 3:06 PM Marya Rosenberg APRN IMG PET ORDERABL ES documented in this [...] MAR Action Action Date Dose Rate Site fludeoxyglucose (F-18) FDG injection 0-20 mCi 0-20 mCi, Intravenous, ONCE PRN, 1 dose, Starting on Thu09/04/23 at 0922, Until Thu09/04/23 at 0750, Per Protocol, Radiology Contrast, Routine Given 09/04/2023 7:50 AM EDT 11.8 mCi documented in this encounter Care Teams Infusion Nurse Relationship Specialty Start Date End Date Mabel Middleton PA [address] [place] [address] PCP - General Family Medicine 04/20/23 documented as of this encounter
--- OUTSIDE RECORDS SUMMARY | 2023-09-07 11:55 | XMS_ITS | Encounter Summary ---
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 Procedures CT Chest Abdomen Pelvis w Contrast (Generic) Marya Rosenberg APRN [address] [place] [address] [place] [address] Referral ID Status Reason Start Date Expiration Date Visits Requested Visits Authorized [id number] New Request Specialty Service Requested 06/09/2023 12/08/2024 1 1 Encounter Details Date Type Department Care Team (Late st Contact Info) Description 06/09/2023 Orders Only Hematology/Oncology at [address] [phone] Marya Rosenberg [address] [place] [address] 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; Bone neoplasm secondary; Secondary malignant neoplasm of liver Social History Tobacco Use Types Packs/Day Years Used Date Smoking Tobacco: Never Smokeless Tobacco: Never Alcohol Use Standard Drinks/Week Comments Never 0 (1 standard drink = 0.6 oz pur e alcohol) [facility] Utilities Answer Date Recorded In the past [...] 11:30 AM EDT Office Visit Hematology/Oncology at [address] [phone] Alexsander Thomas MD [facility] DR HEMATOLOGY/[place] [address] Marya Rosenberg APRN [address] [place] [address] DR HEMATOLOGY AND [place]GOLOCY [place], [place] [id number] 09/28/2023 12:00 PM EDT Infusion Hematology Oncology at [address] [phone] Scheduled Orders Name Type Priority Associated Diagnoses Orde r Schedule CT Chest Abdomen Pelvis w Contrast (Generic) Imaging Routine 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
--- OUTSIDE RECORDS SUMMARY | 2023-09-07 11:55 | XMS_ITS | Encounter Summary ---
Author Organization Replaced By [facility] Address [facility] [place] [address] Care Team Providers Care Simulation Tech Name Role Phone Mabel Middleton Primary Care Provider [phone] Encounter Details Date Type Department Care Team (Late st Contact Info) Description 06/09/2023 Telephone Hematology [place] [phone] Denise Ferreira Social History Tobacco Use Types Packs/Day Years Used Date Smoking Tobacco: Never Smokeless Tobacco: Never Alcohol Use Standard Drinks/Week Comments Never 0 (1 standard drink = 0.6 oz pur e alcohol) [facility] Utilities Answer Date Recorded In [...] place to sleep or slept in a detention (including now)? No 05/28/2023 DH IPV Inpatient [...] * Telephone Encounter - Denise Ferreira - 06/09/2023 4:30 PM EDT Procedure Prior Authorization Procedure/Cpt: 46816, 13440 Ct c/a/p Rationale: C34.12, C79.51, C78.7 Health Plan: [facility] Authorizing Vendor: [employer] Service Order/ Authorization #: [id number] (Abdomen and Pelvis CT) [id number] (Chest CT) Effective Date: 06/09/2023 - 07/09/2023 Status: Approved Rendering Facility: [facility] Valid dates exteded: 06/30/23-07/30/23 documented in this encounter Plan of Treatment Upcoming Encounters Date Type Department Care Team (Late st Contact Info) Description 09/28/2023 11:30 AM EDT Office Visit Hematology/Oncology at [address] [phone] Alexsander Thomas MD [facility] DR HEMATOLOGY/[place] [address] Marya Rosenberg APRN [address] [place] [address] DR [place] [id number] 09/28/2023 12:00 PM EDT Infusion Hematology Oncology at [address] [phone] documented as of this encounter Visit Diagnoses Not on filedocumented in this encounter Care Teams Simulation Tech Relationship Specialty Start Date End Date Mabel Middleton PA [address] [place] [phone] PCP - General Family Medicine 04/20/23 documented as of this encounter
--- OUTSIDE RECORDS SUMMARY | 2023-09-07 11:55 | XMS_ITS | Encounter Summary ---
Author Organization Formerly [facility] Address [facility] [place] [address] Care Team Providers Care Tractor Mechanic Apprentice Name Role Phone Mabel Middleton Primary Care Provider [phone] Encounter Details Date Type Department Care Team (Late st Contact Info) Description 08/17/2023 Notes Only Hematology/Oncology at [address] [phone] Amber Benton, CHIEF SCIENCE OFFICER OFFICE OF CARE MANAGEMENT Social History Tobacco Use Types Packs/Day Years Used Date Smoking Tobacco: Never Smokeless Tobacco: Never Alcohol Use Standard Drinks/Week Comments Never 0 (1 standard drink = 0.6 oz pur e alcohol) [facility] Utilities Answer Date Recorded In the [...] of this encounter Progress Notes * Amber Benton MSW - 08/17/2023 12:01 PM EDT Follow up with Daniele and his during his infusion visit today. His friend/neighbor Betzaida accompanied him to his provider visit. Daniele indicated he is doing fairly well overall. He is not experiencing side effects from his chemo. He and his are managing day to day at home. He does whathe feels up to and is cautious ot to overdo. They are grateful to their neighbors who are supports and assistance. Daniele and his did not identify any specific needs today. Offered support. Will continue to follow for support and resources. Brief assessment Supportive Counseling documented in this encounter Plan of Treatment Upcoming Encounters Date Type Department Care Team (Late st Contact Info) Description 09/28/2023 11:30 AM EDT Office Visit Hematology/Oncology at [address] [phone] Alexsander Thomas MD [facility] DR HEMATOLOGY/[place] [address] Marya Rosenberg APRN [address] [place] [address] DR HEMATOLOGY AND ONGOLOCY [place], [place] [id number] 09/28/2023 12:00 PM EDT Infusion Hematology Oncology at [address] [phone] documented as of this encounter Visit Diagnoses Not on filedocumented in this encounter Care Teams Tractor Mechanic Apprentice Relationship Specialty Start Date End Date Mabel Middleton PA [address] [place] [address] PCP - General Family Medicine 04/20/23 documented as of this encounter
--- OUTSIDE RECORDS SUMMARY | 2023-09-07 11:55 | XMS_ITS | Encounter Summary ---
Author Organization [facility] Address [facility] [place] [address] Care Team Providers Care Hands Parter Name Role Phone Mabel Middleton Primary Care Provider [phone] Encounter Details Date Type Department Care Team (Late st Contact Info) Description 07/16/2023 Interpretation Only [place] [phone] Tip Steiner MD [facility] [place] [address] Social History Tobacco Use Types Packs/Day Years Used Date Smoking Tobacco: Never Smokeless Tobacco: Never Alcohol Use Standard Drinks/Week Comments Never 0 (1 standard drink = 0.6 oz pur e alcohol) [facility] Utilities Answer Date Recorded In the past 12 months has [facility] [employer], gas, oil, or water [employer] threatened to shut off services in your [...] 11:30 AM EDT Office Visit Hematology/Oncology at [address] [phone] Alexsander Thomas MD [facility] DR HEMATOLOGY/[place] [address] Marya Rosenberg APRN [address] [place] [address] [place] [address] 09/28/2023 12:00 PM EDT Infusion Hematology Oncology at [address] [phone] documented as of this encounter Procedures Procedure Name Priority Date/Time Associated Diagnosis Comments FILM LIBRARY STORAGE ONLY CT ABDOMEN AND PELVIS Routine 07/16/2023 11:15 AM EDT documented in this encounter Results * Film Library- Storage Only CT Abdomen & Pelvis (07/16/2023 11:15 AM EDT) 07/19/2023 11:0 8 PM EDT Narrative [facility] - 07/19/2023 11:08 PM EDT This exam is auto-finalizing. It's purpose is for storage only. Tip Steiner MD G FILM LIBRARY ORD ERABLES [place], [place] documented in this encounter Visit Diagnoses Not on filedocumented in this encounter Care Teams Hands Parter Relationship Specialty Start Date End Date Mabel Middleton PA [address] [place] [address] PCP - General Family Medicine 04/20/23 documented as of this encounter
--- OUTSIDE RECORDS SUMMARY | 2023-09-07 11:55 | XMS_ITS | Encounter Summary ---
Author Organization [facility] Address [facility] [place] [address] Care Team Providers Care Joint Cleaning Machine Operator Name Role Phone Mabel Middleton Primary Care Provider [phone] Encounter Details Date Type Department Care Team (Latest Contact Info) Description 08/17/2023 Travel Social History Tobacco Use Types Packs/Day Years Used Date Smoking Tobacco: Never Smokeless Tobacco: Never Alcohol Use Standard Drinks/Week Comments Never 0 (1 standard drink = 0.6 oz pur e alcohol) [facility] Utilities Answer Date Recorded In [...] 11:30 AM EDT Office Visit Hematology/Oncology at [address] [phone] Alexsander Thomas MD [facility] DR HEMATOLOGY/[place] [address] Marya Rosenberg APRN [address] [place] [address] HEMATOLOGY AND ONGOLOCY [place], [place] [id number] 09/28/2023 12:00 PM EDT Infusion Hematology Oncology at [address] [phone] documented as of this encounter Visit Diagnoses Not on filedocumented in this encounter Care Teams Joint Cleaning Machine Operator Relationship Specialty Start Date End Date Mabel Middleton PA [address] [place] [phone] PCP - General Family Medicine 04/20/23 documented as of this encounter
--- OUTSIDE RECORDS SUMMARY | 2023-09-07 11:55 | XMS_ITS | Encounter Summary ---
Author Organization [facility] Address [facility] [place] [place] [address] Care Team Providers Care Senior Quantity Surveyor Name Role Phone Mabel Middleton Primary Care Provider [phone] Encounter Details Date Type Department Care Team (Late st Contact Info) Description 05/14/2023 Telephone [place] [phone] Maame Veras Social History Tobacco Use Types Packs/Day Years Used Date Smoking Tobacco: Never Smokeless Tobacco: Never Alcohol Use Standard Drinks/Week Comments Never 0 (1 standard drink = 0.6 oz pur e alcohol) [facility] Utilities Answer Date Recorded In the past 12 months has e electric, gas, oil, or water [employer] threatened to shut off services in your home? No 05/11/2023 Overall Financial Resource Strain (CARDIA) Answe r Date Recorded How hard is it for you to pa y for the very basics like food, housing, medical care, and heating? Not hard at all 05/11/2023 Hunger Vital Sign Answer Date Recorded Within the past 12 months, y ou worried that your food would run out before you got the money to buy more. Never true 05/11/19 24 Within the past 12 months, t he food you bought just didn't last and you didn't have money to get more. Never true 05/11/2023 PRAPARE - Transportation Answer Date Re corded In the past 12 months, has l ack of transportation kept you from medical appointments or from getting medications? No 04/23 In the past 12 months, has l ack of transportation kept you from meetings, work, or from getting things needed for daily living? No 05/11/2023 Housing Stability Vital Sign Answer Rob e Recorded In the last 12 months, was t here a time when you were not able to pay the mortgage or rent on time? No 05/11/2023 In the last 12 months, how many places have you lived? 1 05/11/2023 In the last 12 months, was t here a time when you did not have a steady place to sleep or slept in a group home (including now)? No 05/11/2023 DH IPV Inpatient Questions Answer Date Recorded [...] encounter Miscellaneous Notes * Telephone Encounter - Maame Veras [place] - 05/19/2023 9:09 AM EDTSummary: AUTH DENIED Images from the original note were not included. NO PATIENT ACTION NEEED_VOICEMAIL OR AUTHORIZATION_INFORMATIONAL ONLY Molecular cancer testing: Authorization DENIED. I received an e-mail from Vicki in [employer] (CG[employer]) requesting coverage review. Insurance Verified: [employer] Insurance Effective To/From Dates: 08/23/2022 TO CURRENT Third Alliance Party Vendor: [employer] Authorization number: DENIED - [id number] Validity Dates: DENIED CGAT list date: 04/28/2023 Tissue Obtained On: 04/22/2023 Ordered On: 04/24/2023 Lab: [facility] CPT/Description: OPO - 81094 - ICD-10/Description: Solid Tumor NGS Extended Panel Ordering Provider: Britney Left upper lobe pulmonary nodule Call Reference Number: NA Spoke With: NA Financially Cleared: YES [employer] Insurance Contact Information [employer] Insurance Name: [employer] Insurance Insurance Additional Clinical Required Y/N?: CLINICAL UPLOADED ON PORTAL. AUTH PENDING ON PORTAL. SEE BELOW. UPLOADED TO MEDIA. Notes - I will e-mail Vicki to let her know of authorization submission. AUTH HAS BEEN DENIED NOT MEETING CLINICAL CRITERIA FOR A COVERED BENEFIT UNDER THE [place] [facility] POLICY. IT IS NOT A COVERED BENEFIT. NEXT STEP WOULD BE AN APPEAL. * Telephone Encounter - Maame Veras - 05/14/2023 1:39 PM EDTSummary: AUTH PENDING Images from the original note were not included. NO PATIENT ACTION NEEED_VOICEMAIL OR AUTHORIZATION_INFORMATIONAL ONLY Molecular cancer testing: Authorization submitted. I received an e-mail from Vicki in [employer] ([employer]) requesting coverage review. Insurance Verified: [employer] Insurance Effective To/From Dates: 08/23/2022 TO CURRENT Third Alliance Party Vendor: [employer] Authorization number: PENDING - [id number] Validity Dates: PENDING CGAT list date: 04/28/2023 Tissue Obtained On: 04/22/2023 Ordered On: 04/24/2023 Lab: [facility] CPT/Description: OPO - 29895 - ICD-10/Description: Solid Tumor NGS Extended Panel Ordering Provider: [id number] Left upper lobe pulmonary nodule Call Reference Number: NA Spoke With: NA Financially Cleared: YES [facility] Insurance Contact Information [facility] Insurance Name: [employer] Insurance Insurance Additional Clinical Required Y/N?: CLINICAL UPLOADED ON PORTAL. AUTH PENDING ON PORTAL. SEE BELOW. UPLOADED TO MEDIA. Notes - I will e-mail Vicki to let her know of authorization submission. documented in this encounter Plan of Treatment Upcoming Encounters Date Type Department Care Team (Late st Contact Info) Description 09/28/2023 11:30 AM EDT Office Visit Hematology/Oncology at [address] [phone] Alexsander Thomas MD [facility] DR HEMATOLOGY/[place] [address] Marya Rosenberg APRN [address] [place] [address] DR HEMATOLOGY AND ONGOLOCY [place], [place] [id number] 09/28/2023 12:00 PM EDT Infusion Hematology Oncology at [address] [phone] documented as of this encounter Visit Diagnoses Not on filedocumented in this encounter Care Teams Senior Quantity Surveyor Relationship Specialty Start Date End Date Mabel Middleton [place] [phone] PCP - General Family Medicine 04/20/23 documented as of this encounter
--- OUTSIDE RECORDS SUMMARY | 2023-09-07 11:55 | XMS_ITS | Encounter Summary ---
Author Organization [facility] Address [facility] [place] [address] Care Team Providers Care Aluminum Pourer Name Role Phone Mabel Middleton Primary Care Provider Encounter Details Date Type Department Care Team (Late st Contact Info) Description 07/15/2023 Orders Only Hematology [place] [phone] Alexsander Thomas MD [facility] HEMATOLOGY/[place] [address] Social History Tobacco Use Types Packs/Day Years Used Date Smoking Tobacco: Never Smokeless Tobacco: Never Alcohol Use Standard Drinks/Week Comments Never 0 (1 standard drink = 0.6 oz pur e alcohol) [facility] Utilities Answer Date Recorded In the past 12 months has e electric, gas, oil, or water [employer] threatened to shut off services in your [...] place to sleep or slept in a custodial (including now)? No 05/28/2023 DH IPV Inpatient [...] 11:30 AM EDT Office Visit Hematology/Oncology at [address] [phone] Alexsander Thomas MD [facility] DR HEMATOLOGY/[place] [address] Marya Rosenberg APRN [address] [place] [address] [place] [address] 09/28/2023 12:00 PM EDT Infusion Hematology Oncology at [address] [phone] documented as of this encounter Visit Diagnoses Not on filedocumented in this encounter Care Teams Aluminum Pourer Relationship Specialty Start Date End Date Mabel Middleton PA [address] [place] [phone] PCP - General Family Medicine 04/20/23 documented as of this encounter
--- OUTSIDE RECORDS SUMMARY | 2023-09-07 11:55 | XMS_ITS | Encounter Summary ---
Author Organization [facility] Address [facility] [place] [address] Care Team Providers Care Staff Developer Name Role Phone Mabel Middleton Primary Care Provider [phone] Reason for Visit * Reason Comments Chemotherapy [id number]/pem/pem + zometa * Treatment/Therapy Plan Authorization (Routine) - Pending [...] 10MG, INJECTION (ALIMTA) TC DENOSUMAB, 1MG, INJECTION [id number] (PEMBROLIZUMAB) Alexsander Thomas MD [facility] DR HEMATOLOGY/[place] [address] [facility] Hem Onc Office [address] [place] [phone] Referral ID Status Reason Start Date Expiration Date V isits Requested Visits Authorized [id number] Pending Review 05/27/2023 05/26/2024 1 100 Encounter Details Date Type Department Care Team (Late st Contact Info) Description 08/17/2023 11:30 AM EDT Infusion Hematology Oncology at [address] [phone] High risk medication use; Bone neoplasm secondary; [...] place to sleep or slept in a senior care (including now)? No 05/28/2023 DH IPV Inpatient [...] as of this encounter Progress Notes * Awilda De La Cruz RN - 08/17/2023 11:30 AM EDT INFUSION THERAPY ADMINISTRATION NOTES DIAGNOSIS: Lung CA CYCLE #: [id number]/Pem/Pem REASON FOR VISIT: Initiation of chemotherapy SUBJECTIVE Daniele offers no complaints. He is accompanied by his , Monica. OBJECTIVE Daniele was seen by AZAM Rendon today prior to infusion and found ready to treat. Due to receive Zometa IV today. LAB DATA: Drawn today at [facility] for treatment. ANC 2.34; Plt 154; Cr 1.1 IV ACCESS: PIV Pre administration: Chemotherapy orders independently verified for drug name, route, and dosage per patient's height, weight and BSA by Awilda De La Cruz, [facility]. REACTIONS (DESCRIPTION, TIME, INTERVENTION AND EFFECTIVENESS) none ASSESSMENT Daniele was awake, alert and tolerated treatment well. PIV flushed with 20cc of NS prior to removal. PLAN Return to clinic per routine. documented in this encounter Plan of Treatment Upcoming Encounters Date Type Department Care Team (Late st Contact Info) Description 09/28/2023 11:30 AM EDT Office Visit Hematology/Oncology at [address] [phone] Alexsander Thomas MD [facility] DR HEMATOLOGY/[place] [address] Marya Rosenberg APRN [address] [place] [address] HEMATOLOGY AND ONGOLOCY [place], [place] [id number] 09/28/2023 12:00 PM EDT Infusion Hematology Oncology at [address] [phone] documented as of this encounter Visit Diagnoses [...] Action Action Date Dose Rate Site aprepitant (Cinvanti) (7.2 mg/mL) injection emulsion 130 mg 130 mg, Intravenous, Administer over 2 Minutes, ONCE, 1 dose, On Thu08/17/23 at 1215, Alternative administration of IV push over 2 minutes is a recommendation from the supply chain consultant. Administer prior to chemotherapy., Routine Given 08/17/2023 12:26 PM EDT 130 mg calcium carbonate (TUMS) chewable tablet 500 mg 500 mg, Oral, ONCE, 1 dose, On 08/17/23 at 1215, Routine Given 08/17/2023 12:23 PM EDT 500 mg CARBOplatin (Paraplatin) 434 mg in dextrose 5% 293.4 mL infusion 434 mg (Target AUC = 5), Intravenous, ONCE, 1 dose, On Thu08/17/23 at 1315, Administer over 30 Minutes, Warning Vesicant/Irritant Medication New Bag 08/17/2023 1:44 PM EDT 434 mg 586.8 mL/hr dexAMETHasone (Decadron) tablet 10 mg 10 mg, Oral, ONCE, 1 dose, On Thu08/17/23 at 1215, Administer prior to chemotherapy, Routine Given 08/17/2023 12:22 PM EDT 10 mg palonosetron (Aloxi) (0.05 mg/mL) injection 0.25 mg 0.25 mg, Intravenous, ONCE, 1 dose, On Thu08/17/23 at 1215, Administer over 30 seconds., Routine Given 08/17/2023 12:24 PM EDT 0.25 mg pembrolizumab (Keytruda) 200 mg in sodium chloride 0.9% 108 mL infusion 200 mg, Intravenous, ONCE, 1 dose, On 08/17/23 at 1315, Administer over 30 Minutes, Flush Line with NS after each dose, This agent is restricted to outpatient use. Is this drug being given as an outpatient? Yes New Bag 08/17/2023 12:51 PM EDT 200 mg 216 mL/hr PEMEtrexed disodium (Alimta) 900 mg in sodium chloride 0.9% 136 mL infusion 900 mg (rounded from 910 mg = 500 mg/m2/dose ? 1.82 m2 Treatment Plan BSA from Recorded weight), Intravenous, ONCE, 1 dose, On 08/17/23 at 1315, Administer over 10 Minutes New Bag 08/17/2023 1:29 PM EDT 900 mg 816 mL/hr zoledronic acid (Zometa) 4 mg in mannitol and sodium chloride 0.9% 100 mL infusion 4 mg 4 mg, Intravenous, ONCE, 1 dose, On 08/17/23 at 1315, Do not administer or Y-site with calcium-containing solutions such as lactated ringers., Indication for: Multiple myeloma and bone metastases, For NON-emergent indications, ensure a baseline dental exam is completed prior to starting treatment in patients at risk of osteonecrosis of the jaw (e.g. cancer patients, diabetics, smokers, steroid use, poor dental hygiene, etc.): Acknowledged Given 08/17/2023 12:31 PM EDT 4 mg documented in this encounter Care Teams Staff Developer Relationship Specialty Start Date End Date Mabel Midd[place] [address] PCP - General Family Medicine 04/20/23 documented as of this encounter
--- OUTSIDE RECORDS SUMMARY | 2023-09-07 11:55 | XMS_ITS | Encounter Summary ---
Author Organization [facility] Address [facility] [place] [address] Care Team Providers Care Rn Social Work Name Role Phone Mabel Middleton Primary Care Provider [phone] Encounter Details Date Type Department Care Team (Late st Contact Info) Description 06/03/2023 11:00 AM EDT Clinical Support Hematology/Oncology at [address] [phone] Marya Rosenberg STICK ROLLER [address] [place] [address] [place] [address] 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; Secondary malignant neoplasm of liver; Secondary malignant neoplasm of brain; Bone neoplasm secondary Social History Tobacco Use Types Packs/Day Years Used Date Smoking Tobacco: Never Smokeless Tobacco: Never Alcohol Use Standard Drinks/Week Comments Never 0 (1 standard drink = 0.6 oz pur e alcohol) [facility] Utilities Answer Date Recorded In the past 12 months has [employer], gas, oil, or water [facility] threatened to shut off services in your [...] Sign Reading Time Taken Comments Blood Pressure 113/77 06/03/2023 11:09 AM EDT Pulse 88 06/03/2023 11:09 AM EDT Temperature 36.6 ??C (97.9 ??F) 06/03/2023 11:09 AM E DT Respiratory Rate 18 06/03/2023 11:09 AM EDT Oxygen Saturation 99% 06/03/2023 11:09 AM EDT Inhaled Oxygen Concentration - - Weight 69.9 kg (154 lb 3.2 oz) 06/03/2023 11:09 AM EDT Height 167.2 cm (5' 5.83) 06/03/2023 11:09 AM E DT Body Mass Index 25.02 06/03/2023 11:09 AM EDT documented in this encounter Patient Instructions * Patient Instructions* Marya Rosenberg, STICK ROLLER - 06/03/2023 11:00 AM EDT PATIENT ID: Daniele Chan is a 62 y.o. with newly diagnosed Stage IV lung adenocarcinoma, who presents today for chemotherapy teaching and is accompanied by his and his friend Jennifer. The planis for Carboplatin/Pemetrexed/Pembrolizumab given every 21 days for 4 cycles, followed by maintenance pemetrexed/pembrolizumab. The following information was reviewed. Antitumor Therapy Schedule: Pembrolizumab given on Day 1 of a 21 day cycle, infuses over 30 min Carboplatin given on Day 1 of a 21 day cycle, infuses over 30 min Pemetrexed given on Day 1 of a 21 day cycle, infuses over 10 min Pre-medication to prevent nausea Supportive care: B12 injection every 3 cycles Plan for 4 hrs in infusion on the days of chemotherapy Laboratory Tests: Check blood counts, kidney and liver function, thyroid function and electrolytes prior to each treatment. Provider Visits: Day 1 of each cycle Possible Side Effects include, but are not limited to: Carboplatin: The most common side effects include decrease in blood counts (decrease in white bloodcells, red blood cells and platelets resulting in increased risk of infection, anemia and bleeding), nausea and vomiting, taste changes, decreased appetite, constipation (or less likely diarrhea), fatigue. Less common side effects include infusion reaction, mouth sores, kidney dysfunction, electrolyte abnormalities, ringing in the ears or hearing loss. Pemetrexed: The most common potential side effects include: Decrease in blood counts (decrease in white blood cells, red blood cells and platelets, resulting in increased risk of infection, anemia and bleeding), nausea/vomiting, decreased appetite, constipation, fatigue. Less common side effects include rash, mouth sores, worsening kidney function. Pembrolizumab: The most common potential side effects are fatigue, decreased appetite, itching, nausea, and anemia. It is important to be aware of the potential immune-mediated toxicities, including pneumonitis, colitis, hepatitis, rash, neuropathy, and endocrinopathies. Call immediately if any change in breathing, 3 or more loose or watery stools in 24 hrs (do not take immodium), rash, profound fatigue, headaches or vision changes. Prompt treatment is required with high dose steroids. Medications: the following prescriptions should be picked up before starting treatment Folic acid 400-1000 mcg/day, ongoing medication (available in either a multivitamin or by prescription) Compazine 10 mg oral every 6 hours as needed for nausea Do not take NSAIDs Plan: Treatment is scheduled to begin today 06/03/23 Testing/Diagnostics Baseline blood work was reviewed and is adequate for treatment Chest CT every 2 cycles to assess response Follow up: Return to clinic in 3 weeks documented in this encounter Progress Notes * Marya Rosenberg APRN - 06/03/2023 11:00 AM EDT Images from the original note were not included. Hematology & Medical Oncology [address] [address] Daniele Chan is being seen for the [...] osseous, pulmonary and brain metastases. No actionable cart driver mutation was identified. While there perhaps [...] impact future treatment of his brain metastases. Today, Daniele Chan was given written information regarding chemotherapy regimen, side effects and management strategies. He and his support team ( Kathi and onc/hospice nurse friend) were given an opportunity to ask questions and verbalized understanding of the information and treatment plan. No barriers to learning were identified. They were counseled on how to call for any further questions or concerns. Plan: - Labs and toxicities assessed and acceptable for ongoing treatment. Begin C1 carbo/pem/pem today - RTC in 3 weeks for consideration of C2, plan to restage after that cycle. - We briefly discussed denosumab given his osseous metastasis. They do not recall if Dr. Thomas had mentioned this to them before. He has good oral care practices and no dental issues. We will proceed with C1 without denosumab, and I will address this with Dr. Thomas when he returns. Marya LaRoza, STICK ROLLER 06/03/2023 Medical Oncology & Hematology [facility] CC: KISHOR Moss Time Attestation: I certify spending at least 40 minutes in providing care to this patient on the day of the visit asreflected by the following activities: - review of his medical record in the chart - discussion of medical decision making - documenting the outcome of today's visit HPI/Interval History/Subjective: Last seen 05/25/2023 Daniele is here today accompanied by his Kathi and their friend/neighbor who is an oncology/hospice coordinator Jennifer. Not having any pain currently, feeling a little nervous. Did have some tingling down his spine a couple of days ago, not painful. Breathing is stable. Can still do stairs. No real cough. No weight loss. Appetite is good. No bowel issues, and no nausea/vomiting. No baseline joint problems. No baseline neuropathy. No headaches. No blurry vision A little more unsteady. No falls. Had a colonoscopy in mid 50s- no issues identified by his report Gotten COVID vaccine. 1 booster Social History/Support Network: Home situation: 36 years. Lives in [facility]. 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 Tobacco use: None. Mom smoked but not around them. 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 [id number]. 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 The immunoperoxidase stain results supports the diagnosis. Non-Compensator Final DIAGNOSIS Positive for Malignancy DISCUSSION Lymph node, station 4R (EBUS-guided FNA): Consistent with metastatic adenocarcinoma of lung origin. (Tumor is in the cell block section) Molecular Data: previously reported but uncommon missense variant in ser tumors. Previous reports suggest this variant (p.D761Y) emay occur in sometumors as an acquired resistance variant following EGFR TKI treatment (PMID: 03485688; [id number]). Tumors with this rare EGFRvariant may responde to 3rd generation EGFR i nhibitiors (PMID: 02086784; [id number]; [id number]). Treatment Course: 06.03.23 C1 carboplatin/pemetrexed/pembro 06/03/2023 12:15 PM 06/03/2023 12:37 PM ONCBCN ONCOLOGY (AMB) Day, Cycle Day 1, Cycle 1 cyanocobalamin (Vitamin B-12) 1,000 mcg/mL SubQ 1,000 mcg pembrolizumab 25 mg/mL (Keytruda) IV 200 mg I reviewed the problem list, allergies, medications, past medical history, social history and family history within the EPIC encounter. Pertinent details are noted above. Pertinent positives and negative from the Review of Systems are as summarized above in the HPI. Physical Exam: Wt Readings from Last 3 Encounters: 06/03/23 69.9 kg (154 lb 3.2 oz) 05/25/23 70.2 kg (154 lb 12.8 oz) 05/11/23 69 kg (152 lb 3.2 oz) Temp Readings from Last 3 Encounters: 06/03/23 36.6 ??C (97.9 ??F) (Temporal) 05/25/23 36.6 ??C (97.8 ??F) (Temporal) 05/11/23 36.3 ??C (97.3 ??F) (Temporal) BP Readings from Last 3 Encounters: 06/03/23 113/77 05/25/23 148/72 05/11/23 130/76 Pulse Readings from Last 3 Encounters: 06/03/23 88 05/25/23 91 05/11/23 73 Body surface area is 1.8 meters squared. Wt Readings from Last 3 Encounters: 06/03/23 69.9 kg (154 lb 3.2 oz) 05/25/23 70.2 kg (154 lb 12.8 oz) 05/11/23 69 kg (152 lb 3.2 oz) KPS Score ECOG Grade Definition 90-100 [...] Judgment: Judgment normal. Review of Laboratory Data: 4.10.24 WBC 6.55, H/H 14.6/44.2, plt 184, [...] 11:30 AM EDT Office Visit Hematology/Oncology at [address] [phone] Alexsander Thomas MD [facility] HEMATOLOGY/[place] [address] Marya Rosenberg APRN [address] [place] [address] HEMATOLOGY AND [place], [place] [id number] 09/28/2023 12:00 PM EDT Infusion Hematology Oncology at [address] [phone] documented as of this encounter Visit Diagnoses Diagnosis 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 Malignant neoplasm of upper lobe, bronchus or lung Secondary malignant neoplasm of liver Secondary malignant neoplasm of brain 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
--- OUTSIDE RECORDS SUMMARY | 2023-09-07 11:55 | XMS_ITS | Encounter Summary ---
Author Organization [facility] Address [facility] [place] [address] Care Team Providers Care Baker Operator Automatic Name Role Phone Mabel Middleton Primary Care Provider [phone] Encounter Details Date Type Department Care Team (Latest Contact Info) Description 05/25/2023 Travel Social History Tobacco Use Types Packs/Day Years Used Date Smoking Tobacco: Never Smokeless Tobacco: Never Alcohol Use Standard Drinks/Week Comments Never 0 (1 standard drink = 0.6 oz pur e alcohol) [facility] Utilities Answer Date Recorded In the past [...] to sleep or slept in a senior living (including now)? No 05/11/2023 DH IPV Inpatient [...] 11:30 AM EDT Office Visit Hematology/Oncology at [address] [phone] Alexsander Thomas MD [facility] DR HEMATOLOGY/[place] [address] Marya Rosenberg APRN [address] [place] [address] HEMATOLOGY AND ONGOLOCY [place], [place] [id number] 09/28/2023 12:00 PM EDT Infusion Hematology Oncology at [address] [phone] documented as of this encounter Visit Diagnoses Not on filedocumented in this encounter Care Teams Baker Operator Automatic Relationship Specialty Start Date End Date Mabel Middleton PA [address] [place] [phone] PCP - General Family Medicine 04/20/23 documented as of this encounter
--- OUTSIDE RECORDS SUMMARY | 2023-09-07 11:55 | XMS_ITS | Encounter Summary ---
Author Organization [facility] Address [facility] [place] [address] Care Team Providers Care Change Manager Name Role Phone Mabel Middleton Primary Care Provider Encounter Details Date Type Department Care Team (Latest Contact Info) Description 05/11/2023 Travel Social History Tobacco Use Types Packs/Day Years Used Date Smoking Tobacco: Never Smokeless Tobacco: Never Alcohol Use Standard Drinks/Week Comments Never 0 (1 standard drink = 0.6 oz pur e alcohol) [facility] Utilities Answer Date Recorded In [...] in a nursing home (including now)? No 05/11/2023 DH IPV [...] 11:30 AM EDT Office Visit Hematology/Oncology at [address] [phone] Alexsander Thomas MD [facility] DR HEMATOLOGY/[place] [address] Marya Rosenberg APRN [address] [place] [address] HEMATOLOGY AND ONGOLOCY [place], [place] [phone] 09/28/2023 12:00 PM EDT Infusion Hematology Oncology at [address] [phone] documented as of this encounter Visit Diagnoses Not on filedocumented in this encounter Care Teams Change Manager Relationship Specialty Start Date End Date Mabel Middleton PA [address] [place] [phone] PCP - General Family Medicine 04/20/23 documented as of this encounter
--- OUTSIDE RECORDS SUMMARY | 2023-09-07 11:55 | XMS_ITS | Encounter Summary ---
Author Organization [facility] Address [facility] [place] [address] Care Team Providers Care Fitness Director Name Role Phone Mabel Middleton Primary Care Provider [phone] Encounter Details Date Type Department Care Team (Late st Contact Info) Description 07/22/2023 11:00 AM EDT Office Visit Hematology/Oncology at [address] [phone] Marya Rosenberg MUSEUM LIBRARIAN [address] [place] [address] [place] [address] 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; Secondary malignant neoplasm of liver; Secondary malignant neoplasm of brain; Bone neoplasm secondary Social History Tobacco Use Types Packs/Day Years Used Date Smoking Tobacco: Never Smokeless Tobacco: Never Alcohol Use Standard Drinks/Week Comments Never 0 (1 standard drink = 0.6 oz pur e alcohol) [facility] Utilities Answer Date Recorded In the past 12 months has [email or web address], gas, oil, or water [employer] threatened to shut off services in your [...] Sign Reading Time Taken Comments Blood Pressure 122/70 07/22/2023 10:38 AM EDT Pulse 89 07/22/2023 10:38 AM EDT Temperature 36.7 ??C (98 ??F) 07/22/2023 10:38 AM EDT Respiratory Rate 18 07/22/2023 10:38 AM EDT Oxygen Saturation 99% 07/22/2023 10:38 AM EDT Inhaled Oxygen Concentration - - Weight 69.4 kg (153 lb) 07/22/2023 10:38 AM EDT Height 167.2 cm (5' 5.83) 07/22/2023 10:38 AM E DT Body Mass Index 24.82 07/22/2023 10:38 AM EDT documented in this encounter Progress Notes * Marya Rosenberg, MUSEUM LIBRARIAN - 07/22/2023 11:00 AM EDT Images from the original note were not included. Hematology & Medical Oncology [address] [phone] Daniele Chan is being seen for the evaluation of lung cancer. Assessment & Plan: Danieel Chan is a 62 y.o. 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 No actionable national van truck driver mutation was identified. While there perhaps [...] and acceptable for ongoing treatment. Plan for C3 carbo/pem/pem today. - RTC in 3 weeks for consideration of C4 - Denosumab non-preferred for his insurance, treating [...] and he can get the work done. - Suggested he try lubricating drops for his eyes Marya LaRoza, MUSEUM LIBRARIAN 07/22/2023 Medical Oncology & Hematology [facility] CC: KISHOR Moss HPI/Interval History/Subjective: Last seen 06/29/2023 Daniele is here today accompanied by his Kathi. He is feeling nervous about the CT reports he saw on his portal. He is having no pain, and generally feeling quite well. Bottom of his right foot was bothering him for 4-5 day, subsided on it's own. It's was primarily sore, no overt numbness or tingling. Appetite was good, weight is stable. No nausea or vomiting, no diarrhea. His eyes have been red anditchy. This has happened in the past. He [...] Network: Home situation: 36 years. Lives in [facility]. 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 Tobacco use: None. Mom smoked but not around them. 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 [phone]. 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 The immunoperoxidase stain results supports the diagnosis. Non-Pay Station Collector Final DIAGNOSIS Positive for Malignancy DISCUSSION Lymph node, station 4R (EBUS-guided FNA): Consistent with metastatic adenocarcinoma of lung origin. (Tumor is in the cell block section) Molecular Data: previously reported but uncommon missense variant in ser tumors. Previous reports suggest this variant (p.D761Y) emay occur in sometumors as an acquired resistance variant following EGFR TKI treatment (PMID: 82612107; [id number]). Tumors with this rare EGFRvariant may responde to 3rd generation EGFR i nhibitiors (PMID: 81846430; [id number]; [id number]). Treatment Course: 06.03.23 C1 carboplatin/pemetrexed/pembro 06.29.23 C2 Carbo/pem/pem 07.16.23 CT c/a/p, images not yet available - no correct local comparison 07.22.23 C3 carbo pem/pem 06/03/2023 12:37 PM 06/03/2023 1:15 PM 06/03/2023 1:32 PM 06/29/2023 12:32 PM 06/29/2023 1:15 PM 06/29/2023 1:33 PM 06/29/2023 1:36 PM ONCBCN ONCOLOGY (AMB) Day, Cycle Day 1, Cycle 2 CARBOplatin (Paraplatin) IV 410 mg 434 mg denosumab 120 mg/1.7 mL (70 mg/mL) (Xgeva) SubQ 120 mg pembrolizumab 25 mg/mL (Keytruda) IV 200 mg 200 mg PEMEtrexed disodium (Alimta) IV 500 mg/m2/dose = 900 mg 500 mg/m2/dose = 900 mg I reviewed the problem list, allergies, medications, past medical history, social history and family history within the EPIC encounter. Pertinent details are noted above. Pertinent positives and negative from the Review of Systems are as summarized above in the HPI. Physical Exam: Wt Readings from Last 3 Encounters: 07/22/23 69.4 kg (153 lb) 06/29/23 68.9 kg (151 lb 12.8 oz) 06/03/23 69.9 kg (154 lb 3.2 oz) Temp Readings from Last 3 Encounters: 07/22/23 36.7 ??C (98 ??F) (Temporal) 06/29/23 36.4 ??C (97.6 ??F) (Temporal) 06/03/23 36.6 ??C (97.9 ??F) (Temporal) BP Readings from Last 3 Encounters: 07/22/23 122/70 06/29/23 107/66 06/03/23 113/77 Pulse Readings from Last 3 Encounters: 07/22/23 89 06/29/23 78 06/03/23 88 Body surface area is 1.8 meters squared. Wt Readings from Last 3 Encounters: 07/22/23 69.4 kg (153 lb) 06/29/23 68.9 kg (151 lb 12.8 oz) 06/03/23 69.9 kg (154 lb 3.2 oz) KPS Score ECOG Grade [...] Judgment: Judgment normal. Review of Laboratory Data: 07/22/23 WBC 4.56, hemoglobin 15.1, hematocrit 45.1, [...] Free T4 0.62 Review of Imaging Data: 5.23.24 CT c/a/p, reports as above, images not yet available. Review of Pathology Data: No new data documented in this encounter Plan of Treatment Upcoming Encounters Date Type Department Care Team (Late st Contact Info) Description 09/28/2023 11:30 AM EDT Office Visit Hematology/Oncology at [address] [phone] Alexsander Thomas MD [facility] DR HEMATOLOGY/[place] [address] Marya Rosenberg APRN [address] [place] [address] HEMATOLOGY AND ONGOLOCY [place], [place] [id number] 09/28/2023 12:00 PM EDT Infusion Hematology Oncology at [address] [phone] documented as of this encounter Visit Diagnoses Diagnosis 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 Malignant neoplasm of upper lobe, bronchus or lung Secondary malignant neoplasm of liver Secondary malignant neoplasm of brain Secondary malignant neoplasm of brain and spinal cord 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 documented in this encounter Care Teams Fitness Director Relationship Specialty Start Date End Date Mabel Middleton PA [address] [place] [phone] PCP - General Family Medicine 04/20/23 documented as of this encounter
--- OUTSIDE RECORDS SUMMARY | 2023-09-07 11:55 | XMS_ITS | Encounter Summary ---
Author Organization [facility] Address [facility] [place] [address] Care Team Providers Care Limousine Rental Clerk Name Role Phone Mabel Middleton Primary Care Provider [phone] Encounter Details Date Type Department Care Team (Late st Contact Info) Description 06/29/2023 Notes Only Hematology/Oncology at [address] [phone] Amber Benton, RIGGING SUPERVISOR OFFICE OF CARE MANAGEMENT Social History Tobacco Use Types Packs/Day Years Used Date Smoking Tobacco: Never Smokeless Tobacco: Never Alcohol Use Standard Drinks/Week Comments Never 0 (1 standard drink = 0.6 oz pur e alcohol) [facility] Utilities Answer Date Recorded In the [...] Progress Notes * Amber Benton MSW - 06/29/2023 12:14 PM EDT Follow up with Daniele and his during his infusion visit today. Daniele indicated he is doing fairly well day to day. He and his are managing with some help from their neighbors. He has been working on getting some wood put up and neighbors came to help. Daniele knows he can only do so much before he has to stop. He is used to working all day but knows he can not do it any longer. Talked about their supports and local supports are neighbors. Daniele has a brother in [place] who is coming in July. His other brother is in [place] but not local. His only identified a sister in [facility]. Daniele did not identify any new needs today. Reminded him of RIGGING SUPERVISOR availability. Will follow for support and resources. Brief assessment Supportive Counseling documented in this encounter Plan of Treatment Upcoming Encounters Date Type Department Care Team (Late st Contact Info) Description 09/28/2023 11:30 AM EDT Office Visit Hematology/Oncology at [address] [phone] Alexsander Thomas MD [facility] DR HEMATOLOGY/[place] [address] Marya Rosenberg APRN [address] [place] [address] DR HEMATOLOGY AND ONGOLOCY [place], [place] [address] 09/28/2023 12:00 PM EDT Infusion Hematology Oncology at [address] [phone] documented as of this encounter Visit Diagnoses Not on filedocumented in this encounter Care Teams Limousine Rental Clerk Relationship Specialty Start Date End Date Mabel Middleton PA [address] [place] [phone] PCP - General Family Medicine 04/20/23 documented as of this encounter
--- OUTSIDE RECORDS SUMMARY | 2023-09-07 11:55 | XMS_ITS | Encounter Summary ---
Author Organization [facility] Address [facility] [place] [address] Care Team Providers Care Seam Closer Name Role Phone Mabel Middleton Primary Care Provider [phone] Reason for Visit * Reason Onset Date Comments Rash 06/18/2023 Several days of rash chest and back Encounter Details Date Type Department Care Team (Late st Contact Info) Description 06/18/2023 Telephone Hematology Oncology at [address] [phone] Kathie Ng, RN Rash (Several days of rash chest and back) Social History Tobacco Use Types Packs/Day Years Used Date Smoking Tobacco: Never Smokeless Tobacco: Never Alcohol Use Standard Drinks/Week Comments Never 0 (1 standard drink = 0.6 oz pur e alcohol) [facility] Utilities Answer Date Recorded In [...] place to sleep or slept in a skilled nursing (including now)? No 05/28/2023 DH IPV Inpatient [...] encounter Miscellaneous Notes * Telephone Encounter - Galindo Bernabe RN - 06/19/2023 9:22 AM EDT Pt called back and reviewed with him and SO Dr Thomas's recommendations. Will picker packer hydrocortisone cream today to start using. Will check in with him again Wednesday 06/21. * Telephone Encounter - Kathie Ng RN - 06/18/2023 2:51 PM EDT Caller: Raul Relationship: Friend/neighbor Clarified Two Patient Identifiers: [x] Reason For Call: Rash (Several days of rash chest and back) Raul called to report that Daniele developed a rash on chest and back a few days ago. She said it is red and looks a little blistery but he had been scratching it. She applied benadryl spray, wondered if this was ok and if there was anything else to do. I called Daniele Chan at the number on file and left a message but there has not been a return call for me to gather more information. Thisinformation to Dr. Thomas for recommendations should Daniele call in. 1625 - Dr. Thomas suggested max. OTC hydrocortisone if the benadryl ineffective. No call back from the [facility] therefore I reached out to Raul and gave her the information to relay to Daniele. Assessment/Symptom Review (onset, location, duration, what makes it better or worse, pertinent positives and negatives): As above Review of Systems Related to Reason for Call: System POS NEG Not Applicable Head (ENT /Neuro) [] [] [] Cardiac [] [] [] Respiratory [] [] [] GI [] [] [] [] [] [] Musculoskeletal [] [] [] Integumentary x [] [] Mental Health [] [] [] Select Specific Decision Support Tool Used: Telephone Triage for Oncology Nurses, 3rd Edition, ONC,[employer], 2019 Name of Guideline/Protocol Used: Rash Disposition/Plan of Care: Defer to provider recommendation Patient/Caregiver verbalizes understanding of plan of care: Unable to reach patient Patient/Caregiver agrees with plan: Advised patient/caregiver to: Patient/Caregiver demonstrates understanding via teach back: * Telephone Encounter - Kathie Ng RN - 06/18/2023 2:50 PM EDT ----- Message from Kathie Ng RN sent at 06/18/2023 11:57 AM EDT ----- Regarding: rash ----- Message ----- From: Kathie Ng RN Sent: 06/18/2023 11:57 AM EDT To: [facility] Hem Onc Nurse ----- Message ----- From: Luzma Huffman Sent: 06/18/2023 10:58 AM EDT To: [facility] Hem Onc Nurse Betzaida called to let us know that Daniele has a rash on his chest and upper back. She put benadryl spray on the rash but would like to know what else to do for the rash. Please call her back at [phone] Thank You Luzma documented in this encounter Plan of Treatment Upcoming Encounters Date Type Department Care Team (Late st Contact Info) Description 09/28/2023 11:30 AM EDT Office Visit Hematology/Oncology at [address] [phone] Alexsander Thomas MD [facility] DR HEMATOLOGY/[place] [address] Marya Rosenberg FILTRATION OPERATOR [address] [place] [address] HEMATOLOGY AND ONGOLOCY [place], [place] [id number] 09/28/2023 12:00 PM EDT Infusion Hematology Oncology at [address] [phone] documented as of this encounter Visit Diagnoses Not on filedocumented in this encounter Care Teams Seam Closer Relationship Specialty Start Date End Date Mabel Middleton PA [address] [place] [phone] PCP - General Family Medicine 04/20/23 documented as of this encounter
--- OUTSIDE RECORDS SUMMARY | 2023-09-07 11:55 | XMS_ITS | Encounter Summary ---
Author Organization [facility] Address [facility] [place] [address] Care Team Providers Care Salesperson Books Name Role Phone Mabel Middleton Primary Care Provider [phone] Encounter Details Date Type Department Care Team (Late st Contact Info) Description 07/16/2023 11:15 AM EDT Ancillary Procedure [place] [phone] Tip Steiner MD [facility] [place] [address] Social History Tobacco Use Types Packs/Day Years Used Date Smoking Tobacco: Never Smokeless Tobacco: Never Alcohol Use Standard Drinks/Week Comments Never 0 (1 standard drink = 0.6 oz pur e alcohol) [facility] Utilities Answer Date Recorded In the past 12 months has [facility] Socrative, gas, oil, or water Open Utility threatened to shut off services in your [...] AM EDT Office Visit Hematology/Oncology at [address] [phone] Alexsander Thomas MD [facility] DR HEMATOLOGY/[place] [address] Marya Rosenberg APRN [address] [place] [address] [place] [address] 09/28/2023 12:00 PM EDT Infusion Hematology Oncology at [address] [phone] documented as of this encounter Procedures Procedure Name Priority Date/Time Associated Diagnosis Comments FILM LIBRARY STORAGE ONLY CT ABDOMEN AND PELVIS Routine 07/16/2023 11:15 AM EDT documented in this encounter Results * Film Library- Storage Only CT Abdomen & Pelvis (07/16/2023 11:15 AM EDT) 07/19/2023 11:0 8 PM EDT Narrative ABEL - 07/19/2023 11:08 PM EDT This exam is auto-finalizing. It's purpose is for storage only. Tip Steiner MD IMG FILM LIBRARY ORD ERABLES [place], [place] documented in this encounter Visit Diagnoses Not on filedocumented in this encounter Care Teams Salesperson Books Relationship Specialty Start Date End Date Mabel Middleton PA [address] [place] [phone] PCP - General Family Medicine 04/20/23 documented as of this encounter
--- OUTSIDE RECORDS SUMMARY | 2023-09-07 11:55 | XMS_ITS | Encounter Summary ---
Author Organization [facility] Address [facility] [place] [address] Care Team Providers Care Thermocouple Tester Name Role Phone Mabel Middleton Primary Care Provider [phone] Encounter Details Date Type Department Care Team (Late st Contact Info) Description 06/22/2023 Telephone Hematology/Oncology at [address] [phone] Christine Hopkins RN Social History Tobacco Use Types Packs/Day Years Used Date Smoking Tobacco: Never Smokeless Tobacco: Never Alcohol Use Standard Drinks/Week Comments Never 0 (1 standard drink = 0.6 oz pur e alcohol) [facility] Utilities Answer Date Recorded In the [...] place to sleep or slept in a fdc (including now)? No 05/28/2023 DH IPV Inpatient [...] encounter Miscellaneous Notes * Telephone Encounter - Christine Hopkins RN - 06/22/2023 2:03 PM EDT Daniele reports rash on front and back torso. It is not worse than the other day. He is using the hydrocortisone cream Dr. Thomas suggested. That takes care of the itch. It bothers him the most at his tailbone. Not blistered. Raised a little. He has a remote history of a right eye injury. Sometimes his right eye will get red but now both the whites of his eye are red. They a 1/10 itchy. No drainage. No vision changes. Dr. Thomas suggests continued use of hydrocortisone cream, benadryl if needed. Suggests saline solution for his eyes. Call to Daniele to let him know this and he will try the saline solution. * Telephone Encounter - Christine Hopkins RN - 06/22/2023 11:18 AM EDT ----- Message from Shania Núñez sent at 06/22/2023 8:23 AM EDT ----- Regarding: [facility] PT- Rash and eye concerns Raul called this morning stating Daniele has a rash on his upper body that developed over the weekend. He has been using hydrocortisone cream to help with the itching and has since developed an eye injury. She did not elaborate on the eye issue just that she really needed to chat with nursing prior to his appt as he was driving him self to the appt. Could someone reach out to her this morning at [phone]. Thanks Shania documented in this encounter Plan of Treatment Upcoming Encounters Date Type Department Care Team (Late st Contact Info) Description 09/28/2023 11:30 AM EDT Office Visit Hematology/Oncology at [address] [phone] Alexsander Thomas MD [facility] [address] HEMATOLOGY/[place] [address] Marya Rosenberg APRN [address] [place] [address] [place]OLOGY [place], [place] [id number] 09/28/2023 12:00 PM EDT Infusion Hematology Oncology at [address] [phone] documented as of this encounter Visit Diagnoses Not on filedocumented in this encounter Care Teams Thermocouple Tester Relationship Specialty Start Date End Date Mabel Middleton PA [address] [place] [phone] PCP - General Family Medicine 04/20/23 documented as of this encounter
--- OUTSIDE RECORDS SUMMARY | 2023-09-07 11:55 | XMS_ITS | Encounter Summary ---
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 malignant neoplasm of brain Procedures MRI Brain wwo Contrast (Generic) Alexsander Thomas MD [facility] HEMATOLOGY/[place] [address] Referral ID Status Reason Start Date Expiration Date Visits Requested Visits Authorized [id number] New Request Specialty Service Requested 09/07/2023 03/09/2025 1 1 Encounter Details Date Type Department Care Team (Late st Contact Info) Description 09/07/2023 11:00 AM EDT Office Visit Hematology/Oncology at [address] [phone] Alexsander Thomas MD [facility] HEMATOLOGY/[place] [address] 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 No 05/28/2023 IPV Inpatient Questions [...] Mass Index 26.16 09/07/2023 10:42 AM EDT documented in this encounter Progress Notes * Alexsander Thomas MD - 09/07/2023 11:00 AM EDT Images from the original note were not included. Hematology & Medical Oncology [place] [phone] Daniele Chan is being seen for the [...] osseous, pulmonary and brain metastases. No actionable class a truck driver mutation was identified. While there [...] endplate compression fracture to the T7 vertebrae. PET scan from 09/04/23 personally reviewed with excellent - Pt is asymptomatic from compression fx. - Labs and toxicities assessed and acceptable for ongoing treatment. - Pemetrexed/pembrolizumab maintenance - Restage brain with brain MRI at [facility] in 3 weeks with PET prior and [...] baseline prior to treatment. TSH has been fluctuating but normal on vitor'slabs Alexsander Thomas MD, MS 09/03/2023 Medical Oncology & Hematology [facility] CC: KISHOR Moss HPI/Interval History/Subjective: Last seen 08/17/2023 Daniele is here today accompanied by his Kathi and their friend Raul. He is generally feeling well today. Tami has been dealing with some recently diagnosed cognitive impairment/dementia Jesus also had an episode where he seemed confused where he wasn't sure of where he was and so they worry about the status of his brain. Continues to be pain free. No new rashes, changes in breathing, new cough, diarrhea. Appetite is good, weight is stable. No nausea or vomiting, no diarrhea. His eyes have been red and itchy. This has happened in the past. He has not tried any drops or anything, some blurry vision when his eyes are dry. Breathing is stable. Can still do stairs. No real cough. No joint issues. No headaches or visual cahnges. No falls. Had a colonoscopy in mid 50s- no issues identified by his report Gotten COVID vaccine. 1 booster Social History/Support Network: Home situation: 36 years. Lives in [facility]. 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 Tobacco use: None. Mom smoked but not around them. 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 [phone]. 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 The immunoperoxidase stain results supports the diagnosis. Non-Paper And Pulp Mill Operator Final DIAGNOSIS Positive for Malignancy DISCUSSION Lymph node, station 4R (EBUS-guided FNA): Consistent with metastatic adenocarcinoma of lung origin. (Tumor is in the cell block section) Molecular Data: previously reported but uncommon missense variant in ser tumors. Previous reports suggest this variant (p.[id number]) emay occur in sometumors as an acquired resistance variant following EGFR TKI treatment (PMID: 17015126; [id number]). Tumors with this rare EGFRvariant may responde to 3rd generation EGFR i nhibitiors (PMID: 29699388; [id number]; [id number]). Treatment Course: 06.03.23 C1 carboplatin/pemetrexed/pembro .08.16 C2 Carbo/pem/pem .. CT c/a/p, images not yet available - no correct local comparison 07.22.23 C3 carbo pem/pem 08.17.23 C4 carbo/pem/pem .02.15 Restaging PET scan 1. Overall interval improvement with decreased size and metabolic activity of the primary malignancy and metastases at all soft tissue and osseous sites as described above with notable exception of a new small FDG avid lytic lesion in the upper sternal body and increased FDG avidity along the right 7th costovertebral joint. 07/22/2023 12:52 PM 07/22/2023 1:26 PM 07/22/2023 1:43 PM 08/17/2023 12:31 PM 08/17/2023 12:51 PM 08/17/2023 1:29 PM 08/17/2023 1:44 PM ONCBCN ONCOLOGY (AMB) Day, Cycle Day 1, Cycle 4 CARBOplatin (Paraplatin) IV 434 mg 434 mg pembrolizumab 25 mg/mL (Keytruda) IV 200 [...] Encounters: 08/17/23 81 07/22/23 89 06/29/23 78 There is no height or weight on file to calculate BSA. Wt Readings from Last 3 Encounters: 08/17/23 [...] Judgment: Judgment normal. Review of Laboratory Data: 09.07.23 White blood cell count 4.66 hemoglobin 13.7 platelet count 181,000 absolute neutrophil count 2.48 Sodium 141 potassium 3.9 chloride 106 BUN 21 creatinine slightly elevated from 1.1-1.2 glucose 87 calcium 8.6 magnesium 2.0 total bilirubin 0.36 AST 21 ALT 47 alk phos 59 albumin 3.2 down from 3.4 TSH has improved to 3.11 Free T4 has improved from 0.69-0.77 08/17/23 WBC 4.57, H/H 13.9/42.4, plt 154,000, [...] albumin 3.3, TSH 5.92, Free T4 0.60 4..24 WBC 6.55, H/H 14.6/44.2, plt 184, ANC 3930, Na 141, K 4.9, Cl 104, CO2 30.1, BUN 20, Creat 1.3, glucose 106, Ca 8.5, Mag 2.1, t bili 0.3, AST 13, ALT 26, alk phos 73, t protein 7.3, albumin 3.1, TSH 4.35, Free T4 0.62 Review of Imaging Data: 5.23.24 CT c/a/p, as above. Compared to Mar CT scans. Review of Pathology Data: No new data documented in this encounter Plan of Treatment Upcoming Encounters Date Type Department Care Team (Late st Contact Info) Description 09/28/2023 11:30 AM EDT Office Visit Hematology/Oncology at [address] [phone] Alexsander Thomas MD [facility] DR HEMATOLOGY/[place] [address] Marya Rosenberg APRN [address] [place] [address] HEMATOLOGY AND ONGOLOCY [place], [place] [id number] 09/28/2023 12:00 PM EDT Infusion Hematology Oncology at [address] [phone] Scheduled Orders Name Type Priority Associated Diagnoses Orde r Schedule MRI Brain wwo Contrast (Generic) Imaging Routine 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 Secondary malignant neoplasm of brain Expected: 10/08/2023 (Approximate), Expires: 09/06/2024 documented as of this encounter Visit Diagnoses Diagnosis 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
--- OUTSIDE RECORDS SUMMARY | 2023-09-07 11:55 | XMS_ITS | Encounter Summary ---
Author Organization [facility] Address [facility] [place] [address] Care Team Providers Care Mainframe Programmer Name Role Phone Mabel Middleton Primary Care Provider [phone] Encounter Details Date Type Department Care Team (Late st Contact Info) Description 07/22/2023 Notes Only Hematology/Oncology at [address] [phone] Amber Benton, CHEMICAL EQUIPMENT SALES ENGINEER OFFICE OF CARE MANAGEMENT Social History Tobacco Use Types Packs/Day Years Used Date Smoking Tobacco: Never Smokeless Tobacco: Never Alcohol Use Standard Drinks/Week Comments Never 0 (1 standard drink = 0.6 oz pur e alcohol) [facility] Utilities Answer Date Recorded In [...] Progress Notes * Amber Benton MSW - 07/22/2023 2:20 PM EDT Follow up with Daniele and his during his infusion visit today. He indicated he feels he is doing well overall. His indicated the same. He has support from his neighbors. His brother from [place] had planned to visit but is sick right now. He hopes to come at a later time. His brother wholives in [facility] calls now and then. His 's sister is coming for a visit the end of this week. Daniele indicated his disability paperwork process if moving forward and is almost completed. Daniele did not identify any new needs today. Offered support. Reminded Daniele and his of CHEMICAL EQUIPMENT SALES ENGINEER availability and will continue to follow. Brief assessment Supportive Counseling documented in this encounter Plan of Treatment Upcoming Encounters Date Type Department Care Team (Late st Contact Info) Description 09/28/2023 11:30 AM EDT Office Visit Hematology/Oncology at [address] [phone] Alexsander Thomas MD [facility] DR HEMATOLOGY/[place] [address] Marya Rosenberg APRN [address] [place] [address] HEMATOLOGY AND ONGOLOCY [place], [place] [id number] 09/28/2023 12:00 PM EDT Infusion Hematology Oncology at [address] [phone] documented as of this encounter Visit Diagnoses Not on filedocumented in this encounter Care Teams Mainframe Programmer Relationship Specialty Start Date End Date Mabel Middleton PA [facility] [place] [phone] PCP - General Family Medicine 04/20/23 documented as of this encounter
--- OUTSIDE RECORDS SUMMARY | 2023-09-07 11:55 | XMS_ITS | Encounter Summary ---
Author Organization [facility] Address [facility] [place] [address] Care Team Providers Care Youth Corrections Officer Name Role Phone Mabel Middleton Primary Care Provider [phone] Reason for Visit * Reason Comments Chemotherapy [id number]/Pem/[id number] * Treatment/Therapy Plan Authorization (Routine) - Pending [...] 10MG, INJECTION (ALIMTA) TC DENOSUMAB, 1MG, INJECTION [id number] (PEMBROLIZUMAB) Alexsander Thomas MD [facility] DR HEMATOLOGY/[place] [address] [facility] Office [address] [place] [phone] Referral ID Status Reason Start Date Expiration Date V isits Requested Visits Authorized [id number] Pending Review 05/27/2023 05/26/2024 1 100 Encounter Details Date Type Department Care Team (Late st Contact Info) Description 07/22/2023 11:30 AM EDT Infusion Hematology Oncology at [address] [phone] High risk medication use; Bone neoplasm secondary; 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 No 05/28/2023 DH IPV Inpatient [...] * Awilda De La Cruz RN - 07/22/2023 11:30 AM EDT INFUSION THERAPY ADMINISTRATION NOTES DIAGNOSIS: Lung CA CYCLE #: [id number]/Pem/Pem REASON FOR VISIT: Initiation of chemotherapy SUBJECTIVE Daniele offers no complaints. He is accompanied by his , Monica. OBJECTIVE Daniele was seen by AZAM Rendon today prior to infusion and found ready to treat. Due to receive Zometa IV and Vit B12 SQ today. LAB DATA: Drawn today at [facility] for treatment. ANC 2.37; Plt 222; CrCl 65.932 IV ACCESS: PIV Pre administration: Chemotherapy orders [...] 11:30 AM EDT Office Visit Hematology/Oncology at [address] [phone] Alexsander Thomas MD [facility] DR HEMATOLOGY/[place] [address] Marya Rosenberg APRN [address] [place] [address] DR HEMATOLOGY AND ONGOLOCY [place], [place] [id number] 09/28/2023 12:00 PM EDT Infusion Hematology Oncology at [address] [phone] documented as of this encounter Visit Diagnoses [...] over 2 Minutes, ONCE, 1 dose, On Thu07/22/23 at 1145, Alternative administration of IV push over 2 minutes is a recommendation from the tree tapping laborer. Administer prior to chemotherapy., Routine Given 07/22/2023 12:29 PM EDT 130 mg calcium carbonate (TUMS) chewable tablet 500 mg 500 mg, Oral, ONCE, 1 dose, On Thu07/22/23 at 1145, Routine Given 07/22/2023 12:19 PM EDT 500 mg CARBOplatin (Paraplatin) 434 mg in dextrose 5% 293.4 mL infusion 434 mg (Target AUC = 5), Intravenous, ONCE, 1 dose, On Thu07/22/23 at 1245, Administer over 30 Minutes, Warning Vesicant/Irritant Medication New Bag 07/22/2023 1:43 PM EDT 434 mg 586.8 mL/hr cyanocobalamin (Vitamin B-12) (1,000 mcg/mL) injection 1,000 mcg 1,000 mcg, Subcutaneous, ONCE, 1 dose, On Thu07/22/23 at 1145, Administer prior to PEMEtrexed. Recommended dose is 1,000 mcg every 9 weeks. Confirm last date of Vitamin B12 administration., Routine Given 07/22/2023 12:35 PM EDT 1,000 mcg Left Arm dexAMETHasone (Decadron) tablet 10 mg 10 mg, Oral, ONCE, 1 dose, On Thu07/22/23 at 1145, Administer prior to chemotherapy, Routine Given 07/22/2023 12:18 PM EDT 10 mg palonosetron (Aloxi) (0.05 mg/mL) injection 0.25 mg 0.25 mg, Intravenous, ONCE, 1 dose, On Thu07/22/23 at 1145, Administer over 30 seconds., Routine Given 07/22/2023 12:28 PM EDT 0.25 mg pembrolizumab (Keytruda) 200 mg in sodium chloride 0.9% 108 mL infusion 200 mg, Intravenous, ONCE, 1 dose, On Thu07/22/23 at 1245, Administer over 30 Minutes, Flush Line with NS after each dose, This agent is restricted to outpatient use. Is this drug being given as an outpatient? Yes New Bag 07/22/2023 12:52 PM EDT 200 mg 216 mL/hr PEMEtrexed disodium (Alimta) 900 mg in sodium chloride 0.9% 136 mL infusion 900 mg (rounded from 910 mg = 500 mg/m2/dose ? 1.82 m2 Treatment Plan BSA from Recorded weight), Intravenous, ONCE, 1 dose, On Thu07/22/23 at 1245, Administer over 10 Minutes New Bag 07/22/2023 1:26 PM EDT 900 mg 816 mL/hr zoledronic acid (Zometa) 4 mg in mannitol and sodium chloride 0.9% 100 mL infusion 4 mg 4 mg, Intravenous, ONCE, 1 dose, On Thu07/22/23 at 1245, Do not administer or Y-site with calcium-containing solutions such as lactated ringers., Indication for: Multiple myeloma and bone metastases, For NON-emergent indications, ensure a baseline dental exam is completed prior to starting treatment in patients at risk of osteonecrosis of the jaw (e.g. cancer patients, diabetics, smokers, steroid use, poor dental hygiene, etc.): Acknowledged Given 07/22/2023 12:35 PM EDT 4 mg documented in this encounter Care Teams Youth Corrections Officer Relationship Specialty Start Date End Date Mabel [place] [address] PCP - General Family Medicine 04/20/23 documented as of this encounter
--- OUTSIDE RECORDS SUMMARY | 2023-09-07 11:55 | XMS_ITS | Encounter Summary ---
Author Organization [facility] Address [facility] [place] [address] Care Team Providers Care Arterial Embalmer Name Role Phone Mabel Middleton Primary Care Provider [phone] Reason for Visit * Reason Onset Date Comments Other 06/23/2023 Out reach Encounter Details Date Type Department Care Team (Late st Contact Info) Description 06/23/2023 Telephone Hematology/Oncology at [address] [phone] Amber Benton, [facility] OFFICE OF CARE MANAGEMENT Other (Out reach) Social History Tobacco Use Types Packs/Day Years Used Date Smoking Tobacco: Never Smokeless Tobacco: Never Alcohol Use Standard Drinks/Week Comments Never 0 (1 standard drink = 0.6 oz pur e alcohol) [facility] Utilities Answer Date Recorded In the past 12 months has [facility] Pose, gas, oil, or water [employer] threatened to shut off services in your [...] encounter Miscellaneous Notes * Telephone Encounter - Amber Benton, [facility] - 06/23/2023 9:24 AM EDT Received message from Christine Hopkins RN that Daniele's friend/neighbor Raul wants to speak to me. TC Daniele first to discuss and inquire if he identified any specific needs. Daniele indicated he has some issues with his eyes that he called in about. He did not identify any psychosocial issues. With permission from Daniele CHAM[employer]ERS Friend/neighbor Raul. No answer and left a message requesting a call back. Updated Ms. Hopkins re this. Brief assessment Add: Call back from Raul and discussed the following as she wants the team to have a better understanding of the challenges Laney and his are having - Raul stated she is overwhelmed with all that is going on with Daniele and his . Raul is anurse and she is trying to help Daniele manage his cancer related needs. Raul is trying to help with his who has memory issues. Their needs are increasing. Discussed Raul's role as friend/neighbor. She explained she and her and another set of neighbors have taken on an active role in assisting Daniele and his . Raul has reached out to Daniele brother Vamsi who is reportedly alternant on his DPOAH. Vamsi lives in [place] but is coming early July. Raul has reached outto Daniele's 's family to see how they can support the situation. Daniele and his do not have any in home supports. Raul plans to become Daniele's RN/CM if he goes onto Hospice services at some point. Raul does not think his is eligible for any homecare services at this time because she is not homebound. Raul is helping Daniele apply for SSDI and sorting out his work halfway issues. Raul does not think Daniele is forthcoming about the challenges at home. He is a very private person. [facility] will plan to follow up with Daniele and his at his next visit next week. Will follow for support and resources. documented in this encounter Plan of Treatment Upcoming Encounters Date Type Department Care Team (Late st Contact Info) Description 09/28/2023 11:30 AM EDT Office Visit Hematology/Oncology at [address] [phone] Alexsander Thomas MD [facility] DR HEMATOLOGY/[place] [address] Marya Rosenberg APRN [address] [place] [address] HEMATOLOGY AND ONGOLOCY [place], [place] [id number] 09/28/2023 12:00 PM EDT Infusion Hematology Oncology at [address] [phone] documented as of this encounter Visit Diagnoses Not on filedocumented in this encounter Care Teams Arterial Embalmer Relationship Specialty Start Date End Date Mabel Middleton PA [address] [place] [address] PCP - General Family Medicine 04/20/23 documented as of this encounter
--- OUTSIDE RECORDS SUMMARY | 2023-09-07 11:55 | XMS_ITS | Encounter Summary ---
Author Organization [facility] Address [facility] [place] [address] Care Team Providers Care Ambulance Assistant Name Role Phone Mabel Middleton Primary Care Provider [phone] Reason for Visit * Reason Comments Chemotherapy * Treatment/Therapy Plan Authorization (Routine) - Pending [...] 10MG, INJECTION (ALIMTA) TC DENOSUMAB, 1MG, INJECTION [id number] (PEMBROLIZUMAB) Alexsander Thomas MD [facility] DR HEMATOLOGY/[place] [address] [facility] Hem Onc Office [address] [place] [phone] Referral ID Status Reason Start Date Expiration Date V isits Requested Visits Authorized [id number] Pending Review 05/27/2023 05/26/2024 1 100 Encounter Details Date Type Department Care Team (Late st Contact Info) Description 06/03/2023 11:30 AM EDT Infusion Hematology Oncology at [address] [phone] High risk medication use; Bone neoplasm secondary; 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 male with diagnosis of Lung Cancer is here for chemotherapy infusion of Carbo/Pem/Pem. PROTOCOL: na CYCLE: 1 DAY: 1 S: Pt. offers no complaints at this time. Reviewed plan of care for infusion visit, patient verbalized understanding of plan as outlined. O: Chemotherapy orders independently verified for correct drug name, route and dosage per patient'sheight, weight and BSA by MARCELO ESCUDERO RN, and onsite pharmacist. Chemotherapy administered per protocol. REACTIONS (DESCRIPTION, TIME, INTERVENTION AND EFFECTIVENESS) none A: Pt. Tolerated treatment with out issue. Daniele Chan confirms that all questions and issues have been addressed. P: Return to clinic as scheduled. documented in this encounter Plan of Treatment Upcoming Encounters Date Type Department Care Team (Late st Contact Info) Description 09/28/2023 11:30 AM EDT Office Visit Hematology/Oncology at [address] [phone] Alexsander Thomas MD [facility] DR HEMATOLOGY/[place] [address] Marya Rosenberg APRN [address] [place] [address] [place] [address] 09/28/2023 12:00 PM EDT Infusion Hematology Oncology at [address] [phone] documented as of this encounter Visit Diagnoses [...] over 2 Minutes, ONCE, 1 dose, On Thu06/03/23 at 1215, Alternative administration of IV push over 2 minutes is a recommendation from the hospice office coordinator. Administer prior to chemotherapy., Routine Given 06/03/2023 12:11 PM EDT 130 mg CARBOplatin (Paraplatin) 410 mg in dextrose 5% 291 mL infusion 410 mg (Target AUC = 5), Intravenous, ONCE, 1 dose, On Thu06/03/23 at 1315, Administer over 30 Minutes, Warning Vesicant/Irritant Medication New Bag 06/03/2023 1:32 PM EDT 410 mg 582 mL/hr cyanocobalamin (Vitamin B-12) (1,000 mcg/mL) injection 1,000 mcg 1,000 mcg, Subcutaneous, ONCE, 1 dose, On Thu06/03/23 at 1215, Administer prior to PEMEtrexed. Recommended dose is 1,000 mcg every 9 weeks. Confirm last date of Vitamin B12 administration., Routine Given 06/03/2023 12:15 PM EDT 1,000 mcg dexAMETHasone (Decadron) tablet 10 mg 10 mg, Oral, ONCE, 1 dose, On Thu06/03/23 at 1215, Administer prior to chemotherapy, Routine Given 06/03/2023 12:09 PM EDT 10 mg palonosetron (Aloxi) (0.05 mg/mL) injection 0.25 mg 0.25 mg, Intravenous, ONCE, 1 dose, On Thu06/03/23 at 1215, Administer over 30 seconds., Routine Given 06/03/2023 12:11 PM EDT 0.25 mg pembrolizumab (Keytruda) 200 mg in sodium chloride 0.9% 108 mL infusion 200 mg, Intravenous, ONCE, 1 dose, On Thu06/03/23 at 1315, Administer over 30 Minutes, Flush Line with NS after each dose, This agent is restricted to outpatient use. Is this drug being given as an outpatient? Yes New Bag 06/03/2023 12:37 PM EDT 200 mg 216 mL/hr PEMEtrexed disodium (Alimta) 900 mg in sodium chloride 0.9% 136 mL infusion 900 mg (rounded from 910 mg = 500 mg/m2/dose ? 1.82 m2 Treatment Plan BSA from Recorded weight), Intravenous, ONCE, 1 dose, On Thu06/03/23 at 1315, Administer over 10 Minutes New Bag 06/03/2023 1:15 PM EDT 900 mg 816 mL/hr documented in this encounter Care Teams Ambulance Assistant Relationship Specialty Start Date End Date Mabel Middleton PA [address] [place] [phone] PCP - General Family Medicine 04/20/23 documented as of this encounter
--- OUTSIDE RECORDS SUMMARY | 2023-09-07 11:55 | XMS_ITS | Encounter Summary ---
Author Organization [facility] Address [facility] [place] [address] Care Team Providers Care Treasury Agent Name Role Phone Mabel Middleton Primary Care Provider [phone] Encounter Details Date Type Department Care Team (Latest Contact Info) Description 06/29/2023 Travel Social History Tobacco Use Types Packs/Day Years Used Date Smoking Tobacco: Never Smokeless Tobacco: Never Alcohol Use Standard Drinks/Week Comments Never 0 (1 standard drink = 0.6 oz pur e alcohol) [facility] Utilities Answer Date Recorded In the [...] 11:30 AM EDT Office Visit Hematology/Oncology at [address] [phone] Alexsander Thomas MD [facility] DR HEMATOLOGY/[place] [address] Marya Rosenberg APRN [address] [place] [address] HEMATOLOGY AND ONGOLOCY [place], [place] [id number] 09/28/2023 12:00 PM EDT Infusion Hematology Oncology at [address] [phone] documented as of this encounter Visit Diagnoses Not on filedocumented in this encounter Care Teams Treasury Agent Relationship Specialty Start Date End Date Mabel Middleton PA [address] [place] [phone] PCP - General Family Medicine 04/20/23 documented as of this encounter
--- OUTSIDE RECORDS SUMMARY | 2023-09-07 11:55 | XMS_ITS | Encounter Summary ---
Author Organization [facility] Address [facility] [place] [address] Care Team Providers Care Mid Level Business Analyst Name Role Phone Mabel Middleton Primary Care Provider Encounter Details Date Type Department Care Team (Latest Contact Info) Description 06/03/2023 Travel Social History Tobacco Use Types Packs/Day Years Used Date Smoking Tobacco: Never Smokeless Tobacco: Never Alcohol Use Standard Drinks/Week Comments Never 0 (1 standard drink = 0.6 oz pur e alcohol) [facility] Utilities Answer Date Recorded In the past [...] 11:30 AM EDT Office Visit Hematology/Oncology at [address] [phone] Alexsander Thomas MD [facility] DR HEMATOLOGY/[place] [address] Marya Rosenberg APRN [address] [place] [address] HEMATOLOGY AND ONGOLOCY [place], [place] [id number] 09/28/2023 12:00 PM EDT Infusion Hematology Oncology at [address] [phone] documented as of this encounter Visit Diagnoses Not on filedocumented in this encounter Care Teams Mid Level Business Analyst Relationship Specialty Start Date End Date Mabel Middleton PA [address] [place] [phone] PCP - General Family Medicine 04/20/23 documented as of this encounter
--- OUTSIDE RECORDS SUMMARY | 2023-09-07 11:56 | XMS_ITS | Encounter Summary ---
Author Organization [facility] Address [facility] [place] [address] Care Team Providers Care Rn Postpartum Name Role Phone Ismael Peralta MD, [place] Primary Care Provider [phone] Encounter Details Date Type Department Care Team (Latest Contact Info) Description 03/27/2020 10:55 AM EST - 03/27/2020 11:59 PM [facility] Hospital [place] [address] Discharge Disposition: Home Social History Tobacco Use Types Packs/Day Years Used Date Smoking Tobacco: Never Assessed Sex and Gender Information Value Date Recorded Sex Assigned at Not on file Gender Identity Not on file Sexual Orientation Not on file documented as of this encounter Plan of Treatment Upcoming Encounters Date Type Department Care Team (Late st Contact Info) Description 09/28/2023 11:30 AM EDT Office Visit Hematology/Oncology at [address] [phone] Alexsander Thomas MD [facility] DR HEMATOLOGY/[place] [address] Marya Rosenberg APRN [address] [place] [address] HEMATOLOGY AND ONGOLOCY [place], [place] [id number] 09/28/2023 12:00 PM EDT Infusion Hematology Oncology at [address] [phone] documented as of this encounter Procedures Procedure Name Priority Date/Time Associated Diagnosis Comments COVID-19 PCR Routine 03/27/2020 9:58 AM EST documented in this encounter Results * COVID-19 PCR (03/27/2020 9:58 AM EST) SARS-CoV-2 RNA Not Detected Not Detected [facility] Comment: This result should be interpreted in combination with the clinical observations, patient history and epidemiological information. For testing of asymptomatic individuals, assay performance characteristics and clinical utility have not been evaluated. Testing for SARS-CoV-2 (Severe acute respiratory syndrome coronavirus 2, formerly known as 2019 novel coronavirus or 2019-nCoV) to aid in the diagnosis of COVID-19 is performed using the Aptima SARS Co-V-2 Assay on the [employer] ([employer] as authorized by the FDA issued Emergency Use Authorization (EUA). This assay is intended for In-vitro Diagnostic (IVD) use with nasopharyngeal swabs collected from individuals meeting the CDC criteria for testing. The assay is performed based on the instructions for use and additional guidance provided by the FDA. Testing is performed in the Microbiology Laboratory within the Department of Pathology and Laboratory Medicine at [facility], certified under the Clinical Laboratory Improvement Amendments of 1988 (CLIA), 42 U.S.C. section 263a, to perform high-complexity tests. Assay performance has been verified according to clinical laboratory regulatory requirements. Test results are provided above. A result of Not Detected indicates that the viral RNA target is not present but does not preclude SARS-CoV-2 infection. False negative results may occur if a specimen is improperly collected, transported or handled; if amplification inhibitors are present; or if inadequate numbers of viral particles are present in the specimen. A result of Detected suggests a current or recent infection and the patient is presumed to be infected. Positive and negative predictive values for this test are highly dependent on disease prevalence. A result of Invalid indicates the inability to conclusively determine the presence or absence of SARS-CoV-2 RNA in the sample which can be due to a variety of factors. ??Collection of a new sample for repeat testing is recommended in the case of an invalid result. CDC COVID-19 criteria for testing on human specimens and clinical management guidance information are available at the CDC Coronavirus Disease 2019 (COVID-19) webpage under Information for Healthcare Professionals (https://www.cdc.gov/coronavirus/2019-ncov/hcp/index.html). Additional information about this and other EUA tests can be found in provider and patient fact sheets at the following FDA website: https://www.fda.gov/medical-devices/pojdyrkugkj-gzsayrn-4122-kclev-44-uauaaxhje- use-a jylqtqroxgfaq-wvvxeas-zsrejbz/auqgp-lpsbipoyeua-tdpj SARS-Cov-2 RNA Source Nasal [facility] Specimen from nose (specimen) Other / Unknown 03/27/2020 9:58 AM EST 03/28/2020 11:15 PM EST Narrative Resulting Agency Comment Spec In Lab Ryan Walden MD MICROBIOLOGY - GENE RAL ORDERABLES [facility] [place] [address] documented in this encounter Visit Diagnoses Not on filedocumented in this encounter Care Teams Rn Postpartum Relationship Specialty Start Date End Date Manuel Guevara MD [address] [place] [address] PCP - General 01/15/10 04/19/23 documented as of this encounter
--- OUTSIDE RECORDS SUMMARY | 2023-09-07 11:56 | XMS_ITS | Encounter Summary ---
Author Organization [facility] Address [facility] cat[place], [place] Care Team Providers Care Injection Mold Technician Name Role Phone Ismael Peralta MD, [place] Primary Care Provider [phone]- [phone] Encounter Details Date Type Department Care Team (Latest Contact Info) Description 03/20/2020 9:41 AM EST - 03/20/2020 11:59 PM [facility] Hospital [place] [address] Discharge Disposition: Home Social History Tobacco Use [...] 11:30 AM EDT Office Visit Hematology/Oncology at [address] [address] Alexsander Thomas MD [facility] DR HEMATOLOGY/[place] [address] Marya Rosenberg APRN [address] [place] [address] HEMATOLOGY AND ONGOLOCY [place], [place] [id number] 09/28/2023 12:00 PM EDT Infusion Hematology Oncology at [address] [address] documented as of this encounter Procedures Procedure Name Priority Date/Time Associated Diagnosis Comments COVID-19 PCR Routine 03/20/2020 10:14 AM EST documented in this encounter Results * COVID-19 PCR (03/20/2020 10:14 AM EST) SARS-CoV-2 RNA Not Detected Not Detected [facility] Comment: This result should be interpreted in combination with the clinical observations, patient history and epidemiological information in making a final diagnosis. For testing of asymptomatic individuals, assay performance characteristics and clinical utility have not been evaluated. Testing for SARS-CoV-2 (Severe acute respiratory syndrome coronavirus 2, formerly known as 2019 novel coronavirus or 2019-nCoV) to aid in the diagnosis of COVID-19 is performed using the [employer] Desk[employer] SARS-CoV-2 Assay as authorized by the FDA Emergency Use Authorization (EUA). This EUA assay is intended for In-vitro Diagnostic (IVD) use with respiratory specimens such as nasopharyngeal swabs collected from individuals during the acute phase of infection. This assay is performed based on the instructions for use provided by [employer] and additional guidance provided by CDC and FDA. Testing is performed in the Clinical Genomics and Advanced Technology Laboratory within the Department of Pathology and Laboratory Medicine at [facility], certified under the Clinical Laboratory Improvement Amendments of 1988 (CLIA), 42 U.S.C. 263a, to perform high complexity tests. Assay performance has been verified according to clinical laboratory regulatory requirements for use with specimens collected from individuals suspected of COVID-19. Test results are provided above. A result of ? Not Detected? indicates that the viral RNA target is not present above the limit of detection, but does not preclude SARS-CoV-2 infection. False negative results may occur if a specimen is improperly collected, transported or handled; if amplification inhibitors are present; or if inadequate numbers of viral particles are present in the specimen. When a diagnostic test is negative, the possibility of a false negative result should be considered in the context of a patient? s recent exposures and the presence of clinical signs and symptoms consistent with COVID-19. A result of ? Detected? indicates that RNA from SARS-CoV-2 was detected and the patient is infected. As required or requested by public health authorities, positive specimens may be sent for additional testing. Positive and negative predictive values for this test are highly dependent on disease prevalence. A result of ? Invalid? indicates that neither the viral RNA targets nor the internal control target was detected. An invalid result suggests the presence of inhibitors. Recollection and re-testing is recommended in the case of an invalid result. CDC COVID-19 criteria for testing on human specimens and clinical management guidance information are available at the CDC Coronavirus Disease 2019 (COVID-19) webpage under ? Information for Healthcare Professionals? (https://www.cdc.gov/coronavirus/2019-ncov/hcp/index.html) Additional information about this and other EUA tests can be found in provider and patient fact sheets at the following FDA website: https://www.fda.gov/medical-devices/dwxzpueecco-txncpjx-8232-yzzds-77-yfkwkzkpx- use-a iyfriwjaadrwh-unkymeb-giecxvw/geyiz-tupoasrsohj-anqm SARS-Cov-2 RNA Source Nasal [facility] Specimen from nose (specimen) Other / Unknown 03/20/2020 10:14 AM EST 03/22/2020 5:30 AM EST Narrative Resulting Agency Comment Spec In Lab Ryan Walden MD MICROBIOLOGY - [facility] ORDERABLES Performing Organization Address City/State/[facility] [[email or web address]] Co de Phone Number [facility] [place] [address] documented in this encounter Visit Diagnoses Not on filedocumented in this encounter Care Teams Injection Mold Technician Relationship Specialty Start Date End Date Manuel Guevara MD [address] [place] [address] PCP - General 01/15/10 04/19/23 documented as of this encounter
--- OUTSIDE RECORDS SUMMARY | 2023-09-07 11:56 | XMS_ITS | Encounter Summary ---
Author Organization [facility] Address [facility] [place] [address] Care Team Providers Care Stereoptic Projection Topographer Name Role Phone Ismael Peralta MD, [place] Primary Care Provider [phone]- [phone] Encounter Details Date Type Department Care Team (Latest Contact Info) Description 10/31/2019 5:28 PM EDT - 10/31/2019 11:59 PM EDT [place] [phone] Discharge Disposition: Home Social History Tobacco Use [...] 11:30 AM EDT Office Visit Hematology/Oncology at [address] [phone] Alexsander Thomas MD [facility] DR HEMATOLOGY/[place] [address] Marya Rosenberg APRN [address] [place] [address] HEMATOLOGY [place] [address] 09/28/2023 12:00 PM EDT Infusion Hematology Oncology at [address] [phone] documented as of this encounter Procedures Procedure Name Priority Date/Time Associated Diagnosis Comments COVID-19 PCR Routine 10/31/2019 1:00 PM EDT documented in this encounter Results * COVID-19 PCR (10/31/2019 1:00 PM EDT) SARS-CoV-2 RNA Not Detected Not Detected [facility] Comment: This result should be interpreted in combination with the clinical observations, patient history and epidemiological information. For testing of asymptomatic individuals, assay performance characteristics and clinical utility have not been evaluated. Testing for SARS-CoV-2 (Severe acute respiratory syndrome coronavirus 2, formerly known as 2019 novel coronavirus or 2019-nCoV) to aid in the diagnosis of COVID-19 is performed using the [employer] Real[employer] SARS-CoV-2 as authorized by the FDA Emergency Use Authorization (EUA). This EUA assay is intended for In-vitro Diagnostic (IVD) use with respiratory specimens such as nasopharyngeal swabs collected from individuals during the acute phase of infection. This assay is performed based on the instructions for use provided by the [employer] and additional guidance provided by CDC and FDA. Testing is performed in the Clinical Genomics [facility] Technology Laboratory within the Department of Pathology and Laboratory Medicine at [facility], certified under the Clinical Laboratory Improvement Amendments of 1988 (CLIA), 42 U.S.C. section 263a, to perform high complexity tests. Assay [...] the patient is presumed to be infected. As required or requested by public health authorities, positive specimens may be sent for additional testing. Positive and negative predictive values for this test are highly dependent on disease prevalence. A result of Invalid indicates that neither the viral RNA targets nor the internal control target was detected. An invalid result suggests the presence of inhibitors. Recollection is recommended in the case of an invalid result. CDC COVID-19 criteria for testing on human specimens and clinical management guidance information are available at the CDC Coronavirus Disease 2019 (COVID-19) webpage under Information for Healthcare Professionals (https://www.cdc.gov/coronavirus/2019-ncov/hcp/index.html) Additional information about this and other EUA tests can be found in provider and patient fact sheets at the following FDA website: https://www.fda.gov/medical-devices/bzmsjkjcn-tvwmhuymcw-zmazxiq-devices/emergen -us e-authorizations#fwrza36ewl SARS-Cov-2 RNA Source AUTO HIKER Swab [facility] Nasopharyngeal swab (specimen) Other / Unknown 10/31/2019 1:00 PM EDT 11/01/2019 9:07 PM EDT Narrative Resulting Agency Comment Spec In Lab Ryan Walden MD MICROBIOLOGY - [facility] ORDERABLES Performing Organization Address City/State/[facility] Co de Phone Number [facility] [place] [address] documented in this encounter Visit Diagnoses Not on filedocumented in this encounter Care Teams Stereoptic Projection Topographer Relationship Specialty Start Date End Date Manuel Guevara MD [address] [place] [address] PCP - General 01/15/10 04/19/23 documented as of this encounter
--- OUTSIDE RECORDS SUMMARY | 2023-09-07 11:56 | XMS_ITS | Encounter Summary ---
Author Organization [facility] Address [facility] [place] [address] Care Team Providers Care Refrigerator Repairman Name Role Phone Ismael Peralta MD, [place] Primary Care Provider [phone]- [phone] Encounter Details Date Type Department Care Team (Late Contact Info) Description 04/08/2023 7:55 AM EST Ancillary Procedure [place] [address] Tip Steiner MD [facility] [place] [address] Social History Tobacco Use Types Packs/Day Years Used Date Smoking Tobacco: Never Assessed Sex and Gender Information Value Date Recorded Sex Assigned at Not on file Gender Identity Not on file Sexual Orientation Not on file documented as of this encounter Plan of Treatment Upcoming Encounters Date Type Department Care Team (Late Contact Info) Description 09/28/2023 11:30 AM EDT Office Visit Hematology/Oncology at [address] [phone] Alexsander Thomas MD [facility] DR HEMATOLOGY/[place] [address] Marya Rosenberg APRN [address] [place] [address] HEMATOLOGY AND ONGOLOCY [place], [place] [address] 09/28/2023 12:00 PM EDT Infusion Hematology Oncology at [address] [address] documented as of this encounter Procedures Procedure Name Priority Date/Time Associated Diagnosis Comments FILM LIBRARY STORAGE ONLY CT CHEST Routine 04/08/2023 7:55 AM EST documented in this encounter Results * Film Library- Storage Only CT Chest (04/08/2023 7:55 AM EST) 07/19/2023 11:0 8 PM EDT Narrative [facility] 07/19/2023 11:08 PM EDT This exam is auto-finalizing. It's purpose is for storage only. Tip Steiner MD IMG FILM LIBRARY ORD ERABLES Performing Organization Address City/State/[facility] Co de Phone Number [place], [place] documented in this encounter Visit Diagnoses Not on filedocumented in this encounter Care Teams Refrigerator Repairman Relationship Specialty Start Date End Date Manuel Guevara MD [address] [place] [address] PCP - General 01/15/10 04/19/23 documented as of this encounter
--- OUTSIDE RECORDS SUMMARY | 2023-09-07 11:56 | XMS_ITS | Encounter Summary ---
Author Organization [facility] [place] [address] Care Team Providers Care Felt Tipping Machine Tender Name Role Phone Ismael Peralta MD, [place] Primary Care Provider [phone]- [phone] Encounter Details Date Type Department Care Team (Late st Contact Info) Description 03/31/2023 Ancillary Procedure [place] [address] Luciano Zhao MD [facility] [place] [place] [address] Social History Tobacco Use Types Packs/Day Years Used Date Smoking Tobacco: Never Assessed Sex and Gender Information Value Date Recorded Sex Assigned at Not on file Gender Identity Not on file Sexual Orientation Not on file documented as of this encounter Plan of Treatment Upcoming Encounters Date Type Department Care Team (Late Contact Info) Description 09/28/2023 11:30 AM EDT Office Visit Hematology/Oncology at [address] [phone] Alexsander Thomas MD [facility] DR HEMATOLOGY/[place] [address] Marya Rosenberg APRN [address] [place] [address] HEMATOLOGY AND ONGOLOCY [place], [place] [address] 09/28/2023 12:00 PM EDT Infusion Hematology Oncology at [address] [address] documented as of this encounter Procedures Procedure Name Priority Date/Time Associated Diagnosis Comments FILM LIBRARY STORAGE ONLY DX CHEST Routine 03/31/2023 12:00 AM EST documented in this encounter Results * Film Library- Storage Only DX Chest (03/31/2023 12:00 AM EST) Narrative ABEL - 04/14/2023 4:29 PM EST This exam is auto-finalizing. It's purpose is for storage only. Luciano Zhao MD IMG FILM LIBRARY ORDERABLES Performing Organization Address City/State/[facility] Co de Phone Number [place], [place] documented in this encounter Visit Diagnoses Not on filedocumented in this encounter Care Teams Felt Tipping Machine Tender Relationship Specialty Start Date End Date Manuel Guevara MD [address] [place] [id number] PCP - General 01/15/10 04/19/23 documented as of this encounter
--- OUTSIDE RECORDS SUMMARY | 2023-09-07 11:56 | XMS_ITS | Encounter Summary ---
Author Organization [facility] Address [facility] [place] [address] Care Team Providers Care Campus Recruiter Name Role Phone Mabel [place] Primary Care Provider [phone] Reason for Referral * Diagnostic Test (Routine) - Closed Specialty Diagnoses / Procedures Referred By Contac t Referred To Contact Radiology Diagnoses Left upper lobe pulmonary nodule Lymphadenopathy Procedures MRI Brain wwo Contrast (Generic) Luciano Zhao MD [facility] [place] [address] [place] [address] Referral ID Status Reason Start Date Expiration Date V isits Requested Visits Authorized [id number] Closed Specialty Service Requested 04/20/2023 2024 1 1 Reason for Visit * Diagnostic Test (Routine) - Closed Specialty Diagnoses / Procedures Referred By Contac t Referred To Contact Radiology Diagnoses Left upper lobe pulmonary nodule Lymphadenopathy Procedures MRI Brain wwo Contrast (Generic) Luciano Zhao MD [facility] [place] [address] [place] [address] Referral ID Status Reason Start Date Expiration Date V isits Requested Visits Authorized [id number] Closed Specialty Service Requested 04/20/2023 2024 1 1 Encounter Details Date Type Department Care Team (Latest Contact Info) Description 04/30/2023 9:31 AM EST - 04/30/2023 11:59 PM EST Hospital [place] [address] Luciano Zhao MD [facility] [place] [address] Left upper lobe pulmonary nodule; Lymphadenopathy Discharge Disposition: Home Social History Tobacco Use Types Packs/Day Years Used Date Smoking Tobacco: Never Smokeless Tobacco: Never Alcohol Use Standard Drinks/Week Comments Never 0 (1 standard drink = 0.6 oz pur e alcohol) [facility] Inpatient Questions Answer Date Recorded Does Anyone [...] Sig Dispensed Refills Start Date End Date LORazepam (Ativan) 0.5 mg tablet 0.5 mg. 04/21/19 24 documented as of this encounter Plan of Treatment Upcoming Encounters Date Type Department Care Team (Late st Contact Info) Description 09/28/2023 11:30 AM EDT Office Visit Hematology/Oncology at [address] [phone] Alexsander Thomas MD [facility] DR HEMATOLOGY/[place] [address] Marya Rosenberg APRN [address] [place] [address] HEMATOLOGY AND ONGOLOCY [place], [place] [id number] 09/28/2023 12:00 PM EDT Infusion Hematology Oncology at [address] [address] documented as of this encounter Procedures Procedure Name Priority Date/Time Associated Diagnosis Comments MRI BRAIN WWO CONTRAST (GENERIC) Routine 04/30/2023 11:00 AM EST Left upper lobe pulmonary nodule Lymphadenopathy documented in this encounter Results * MRI Brain wwo Contrast (Generic) (04/30/2023 11:00 AM EST) Anatomical Region Laterality Modality Head Magnetic Resonan ce Impressions 05/01/2023 9:47 AM EST 1. 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 2. ??Enhancing lesions in the clivus and C2 vertebra concerning for osseous metastasis. Thank you for letting us participate in the care of this patient. ??If you are a health care provider and have any questions regarding this report, please contact the number below. ??For patients who have questions please contact the health care associate that requested your imaging first. ? Narrative 05/01/2023 9:47 AM EST EXAMINATION: MRI BRAIN WWO CONTRAST (GENERIC) CLINICAL HISTORY: Non-small cell lung cancer (NSCLC), staging; Metastatic disease evaluation LYNDA nodule and lymphadenopathy, suspected mets R91.1, Solitary pulmonary nodule - R59.1, Generalized enlarged lymph nodes TECHNIQUE: MRI of the brain was performed before and after the intravenous administration of 14cc Dotarem. COMPARISON: None FINDINGS: Multiple punctate enhancing cortical/subcortical foci consistent with metastases: 2 left and mild right frontal, lateral and left parietal, left posterior medial cerebellar tumor right anteromedial and posterior lateral cerebellar. The largest metastasis, in the right inferior cerebellar hemisphere and measures 9 mm x 9 mm central necrosis. There is a punctate likely diffusion restricted, DWI hyperintense focus in the high posterior right frontal cortex. No midline shift, mass effect, hydrocephalus or extra-axial collection. Scattered punctate supratentorial white matter T2 hyperintensities, predominantly subcortical, consistent with chronic microvascular ischemic changes. Cerebral aqueduct, foramen magnum and basilar cisterns are patent. Pituitary gland is normal. There is a 1.6 x 1.3 cm clival lesion, and a 1.8 x 1.0 cm lesion in the partially visible left C2 vertebral body and lateral mass, and concerning for osseous metastases. Mild pansinus mucosal thickening. Orbits are normal. Mastoid air cells are clear. Procedure Note Thuy Pal MD - 05/01/2023 EXAMINATION: MRI BRAIN WWO CONTRAST (GENERIC) CLINICAL HISTORY: Non-small cell lung cancer (NSCLC), staging;Metastatic disease evaluation LYNDA nodule and lymphadenopathy, suspected mets R91.1, Solitary pulmonary nodule - R59.1, Generalized enlarged lymphnodes TECHNIQUE: MRI of the brain was performed before and after the intravenousadministration of 14cc Dotarem. COMPARISON: None FINDINGS: Multiple punctate enhancing cortical/subcortical foci consistent with metastases: 2 left and mild right frontal, lateral and left parietal,left posterior medial cerebellar tumor right anteromedial and posteriorlateral cerebellar. The largest metastasis, in the right inferior cerebellarhemisphere and measures 9 mm x 9 mm central necrosis. There is a punctate likely diffusion restricted, DWI hyperintense focus inthe high posterior right frontal cortex. No midline shift, mass effect, hydrocephalus or extra-axial collection. Scattered punctate supratentorial white matter T2 hyperintensities, predominantly subcortical, consistent with chronic microvascularischemic changes. Cerebral aqueduct, foramen magnum and basilar cisterns are patent.Pituitary gland is normal. There is a 1.6 x 1.3 cm clival lesion, and a 1.8 x 1.0 cm lesion in the partially visible left C2 vertebral body and lateral mass, and concerningfor osseous metastases. Mild pansinus mucosal thickening. Orbits are normal. Mastoid air cellsare clear. IMPRESSION 1. Multiple supratentorial and infratentorial brain parenchymalmetastases, measuring up to 9 mm in the right cerebellar hemisphere. 2. Enhancing lesions in the clivus and C2 vertebra concerning forosseous metastasis. Thank you for letting us participate in the care of this patient. If youare a health care provider and have any questions regarding this report,please contact the number below. For patients who have questions please contactthe health care associate that requested your imaging first. Luciano Zhao MD IMG MRI ORDERABL ES documented in this encounter Visit Diagnoses Diagnosis Left upper lobe pulmonary nodule Lymphadenopathy Enlargement of lymph nodes documented in this encounter Administered Medications Inactive Administered Medications - up to 3 most recent administrations Medication Order MAR Action Action Date Dose Rate Site gadoterate meglumine (Dotarem) (0.5 mMol/mL) injection solution 0-100 mL 0-100 mL, Intravenous, ONCE PRN, 1 dose, Starting on Kimberlee 04/30/23 at 1000, Until Kimberlee 04/30/23 at 1045, Per Protocol, Radiology Contrast, Routine Given 04/30/2023 10:45 AM EST 14 mLs documented in this encounter Care Teams Campus Recruiter Relationship Specialty Start Date End Date Mabel Middleton PA [address] [place] [address] PCP - General Family Medicine 04/20/23 documented as of this encounter
--- OUTSIDE RECORDS SUMMARY | 2023-09-07 11:56 | XMS_ITS | Encounter Summary ---
Author Organization [facility] Address [facility] [place] [address] Care Team Providers Care Street Light Servicer Supervisor Name Role Phone Ismael Peralta MD, [place] Primary Care Provider [phone] Encounter Details Date Type Department Care Team (Latest Contact Info) Description 09/01/2017 9:24 PM EDT - 09/01/2017 11:59 PM EDT Hospital [place] [phone] Discharge Disposition: Home Social History Tobacco Use [...] AM EDT Office Visit Hematology/Oncology at [address] [phone] Alexsander Thomas MD [facility] DR HEMATOLOGY/[place] [address] Marya Rosenberg APRN [address] [place] [address] HEMATOLOGY [place] [address] 09/28/2023 12:00 PM EDT Infusion Hematology Oncology at [address] [phone] documented as of this encounter Procedures Procedure Name Priority Date/Time Associated Diagnosis Comments SURGICAL PATHOLOGY REPORT Routine 09/01/2017 12:00 PM EDT documented in this encounter Results * Surgical Pathology Report (09/01/2017 12:00 PM EDT) Surgical Pathology Report [id number] ? Location: [facility] The signing pathologist has (i) examined the relevant preparation(s) for the specimen(s) and (ii) rendered or confirmed the diagnosis(es). . ?Surgical Pathology DIAGNOSIS A - Right inguinal cord lipoma (gross surgical pathology examination). Electronically signed by: ??Padmini SANCHEZ, Jacinto Page Verified: ??09/04/2017 ?Pathologist Performed at: ??-[facility] Dept. of Pathology, [place], [place] CLINICAL INFORMATION Specimen Submitted: A - Lipoma of cord Clinical history and diagnosis: ?? Right inguinal hernia. Referring Identifier: ??[id number] SPECIMEN PROCESSING A - ??Labeled/Fixati ve: Lipoma of cord, formalin. Quantity/Size: Single, 3.1 x 3.1 x 1.7 cm . Tissue Description: Mathew-yellow fibroadipose tissue. Sections/Process ing: No sections are submitted. Gross examination only. ??pps [facility] 09/01/2017 12:0 0 PM EDT Narrative Resulting Agency Comment Spec In Lab / [facility] Jennifer Bernal MD PATHOLOGY/CYTOLOGY O RDERABLES [facility] [place] [place] [address] documented in this encounter Visit Diagnoses Not on filedocumented in this encounter Care Teams Street Light Servicer Supervisor Relationship Specialty Start Date End Date Manuel Guevara MD [address] [place] [address] PCP - General 01/15/10 04/19/23 documented as of this encounter
--- OUTSIDE RECORDS SUMMARY | 2023-09-07 11:56 | XMS_ITS | Encounter Summary ---
Author Organization [facility]ly [facility] Address [facility] [place] [address] Care Team Providers Care Handbook Writer Name Role Phone Ismael Peralta MD, [place] Primary Care Provider [phone] Encounter Details Date Type Department Care Team (Latest Contact Info) Description 04/10/2020 8:02 AM EST - 04/10/2020 11:59 PM [facility] Hospital [place] [address] Discharge Disposition: Home Social History Tobacco Use [...] 11:30 AM EDT Office Visit Hematology/Oncology at [address] [phone] Alexsander Thomas MD [facility] DR HEMATOLOGY/[place] [address] Marya Rosenberg APRN [address] [place] [address] HEMATOLOGY AND ONGOLOCY [place], [place] [id number] 09/28/2023 12:00 PM EDT Infusion Hematology Oncology at [address] [phone] documented as of this encounter Procedures Procedure Name Priority Date/Time Associated Diagnosis Comments COVID-19 PCR Routine 04/10/2020 6:55 AM EST documented in this encounter Results * COVID-19 PCR (04/10/2020 6:55 AM EST) SARS-CoV-2 RNA Not Detected Not Detected [facility] Comment: This result should be [...] diagnosis of COVID-19 is performed using the [employer] SARS-CoV-2 Assay as authorized by the FDA Emergency Use Authorization (EUA). This EUA assay is intended for In-vitro Diagnostic (IVD) use with respiratory specimens such as nasopharyngeal swabs collected from individuals during the acute phase of infection. This assay is performed based on the instructions for use provided by [employer] and additional guidance provided by CDC and FDA. Testing is performed in the [facility] within the Department of Pathology and Laboratory Medicine at [facility], certified under the Clinical Laboratory Improvement Amendments [...] fact sheets at the following FDA website: https://www.fda.gov/medical-devices/dfwehxkzoiz-dzxrwia-8020-kawpl-19-dfmszxpwq- use-a eqnayqqhtymmz-qgrzfdq-cwzsoos/vivil-jdbyylfmfac-csrg SARS-Cov-2 RNA Source Nasal [facility] Specimen from nose (specimen) Other / Unknown 04/10/2020 6:55 AM EST 04/11/2020 1:14 PM EST Narrative Resulting Agency Comment Spec In Lab Ryan Walden MD MICROBIOLOGY - [facility] ORDERABLES Performing Organization Address City/State/[facility] Co de Phone Number [facility] [place] [address] documented in this encounter Visit Diagnoses Not on filedocumented in this encounter Care Teams Handbook Writer Relationship Specialty Start Date End Date Manuel Guevara MD [address] [place] [address] PCP - General 01/15/10 04/19/23 documented as of this encounter
--- OUTSIDE RECORDS SUMMARY | 2023-09-07 11:56 | XMS_ITS | Encounter Summary ---
Author Organization [facility] Address [facility] [place] [address] Care Team Providers Care Can Crimper Name Role Phone Ismael Peralta MD, [place] Primary Care Provider [phone] Encounter Details Date Type Department Care Team (Latest Contact Info) Description 03/07/2020 7:24 AM EST - 03/07/2020 11:59 PM [facility] Hospital [place] [address] Discharge Disposition: Home Social History Tobacco Use [...] 11:30 AM EDT Office Visit Hematology/Oncology at [address] [phone] Alexsander Thomas MD [facility] DR HEMATOLOGY/[place] [address] Marya Rosenberg APRN [address] [place] [address] HEMATOLOGY AND ONGOLOCY [place], [place] [id number] 09/28/2023 12:00 PM EDT Infusion Hematology Oncology at [address] [phone] documented as of this encounter Procedures Procedure Name Priority Date/Time Associated Diagnosis Comments COVID-19 PCR Routine 03/07/2020 9:58 AM EST documented in this encounter Results * COVID-19 PCR (03/07/2020 9:58 AM EST) SARS-CoV-2 RNA Not Detected Not Detected [facility] Comment: This result should be [...] diagnosis of COVID-19 is performed using the [employer] SARS-CoV-2 Assay as authorized by the FDA Emergency Use Authorization (EUA). This EUA assay is intended for In-vitro Diagnostic (IVD) use with respiratory specimens such as nasopharyngeal swabs collected from individuals during the acute phase of infection. This assay is performed based on the instructions for use provided by [employer] and additional guidance provided by CDC and FDA. Testing is performed in the [facility] Laboratory within the Department of Pathology and Laboratory Medicine at [facility], certified under the Clinical Laboratory Improvement [...] fact sheets at the following FDA website: https://www.fda.gov/medical-devices/luoyjspcalu-rnwuvnx-2059-wiohp-83-ixpksimzt- use-a qxrnhyebsozob-hsvqklt-jaqpjqt/cznds-juxnsilaacy-wnqx SARS-Cov-2 RNA Source Nasal [facility] Specimen from nose (specimen) Other / Unknown 03/07/2020 9:58 AM EST 03/08/2020 5:55 PM EST Narrative Resulting Agency Comment Spec In Lab Ryan Walden MD MICROBIOLOGY - [facility] ORDERABLES Performing Organization Address City/State/[facility] Co de Phone Number [facility] [place] [address] documented in this encounter Visit Diagnoses Not on filedocumented in this encounter Care Teams Can Crimper Relationship Specialty Start Date End Date Manuel Guevara MD [address] [place] [address] PCP - General 01/15/10 04/19/23 documented as of this encounter
--- OUTSIDE RECORDS SUMMARY | 2023-09-07 11:56 | XMS_ITS | Encounter Summary ---
[place] [address] Care Team Providers Care Enamel Burner Name Role Phone Mabel Middleton Primary Care Provider [phone] Reason for Referral * Diagnostic Test (Routine) - Closed Specialty Diagnoses / Procedures Referred By Contac t Referred To Contact Radiology Diagnoses Left upper lobe pulmonary nodule Lymphadenopathy Procedures NM PET CT Skull Base to Mid-thigh Luciano Zhao MD [facility] [place] [address] [place] [address] Referral ID Status Reason Start Date Expiration Date V isits Requested Visits Authorized [id number] Closed Specialty Service Requested 04/23/2023 05/23/2023 1 1 Reason for Visit * Diagnostic Test (Routine) - Closed Specialty Diagnoses / Procedures Referred By Contac t Referred To Contact Radiology Diagnoses Left upper lobe pulmonary nodule Lymphadenopathy Procedures NM PET CT Skull Base to Mid-thigh Luciano Zhao MD [facility] [place] [address] [place] [address] Referral ID Status Reason Start Date Expiration Date V isits Requested Visits Authorized [id number] Closed Specialty Service Requested 04/23/2023 05/23/2023 1 1 Encounter Details Date Type Department Care Team (Latest Contact Info) Description 04/23/2023 7:01 AM EST Hospital Encounter [place] [address] Luciano Zhao MD [facility] [place] [address] Left upper lobe pulmonary nodule; Lymphadenopathy Discharge Disposition: Home Social History Tobacco Use Types Packs/Day Years Used Date Smoking Tobacco: Never Smokeless Tobacco: Never Alcohol Use Standard Drinks/Week Comments Never 0 (1 standard drink = 0.6 oz pur e alcohol) DH IPV Inpatient Questions Answer Date Recorded [...] 11:30 AM EDT Office Visit Hematology/Oncology at [address] [phone] Alexsander Thomas MD [facility] DR HEMATOLOGY/[place] [address] Marya Rosenberg APRN [address] [place] [address] HEMATOLOGY [place] [address] 09/28/2023 12:00 PM EDT Infusion Hematology Oncology at [address] [phone] documented as of this encounter Procedures Procedure Name Priority Date/Time Associated Diagnosis Comments NM PET CT SKULL BASE TO MID-THIGH ([facility]) Routine 04/23/2023 8:28 AM EST Left upper lobe pulmonary nodule Lymphadenopathy documented in this encounter Results * NM PET CT Skull Base to Mid-thigh (04/23/2023 8:28 AM EST) Anatomical Region Laterality Modality Positron Emissio n Tomography (PET) Impressions 04/28/2023 10:16 AM EST 1. ??5.3 cm FDG avid left upper lobe malignancy, displacing the major fissure. 2. ??Multiple pulmonary metastases in the bilateral lower lobes. 3. ??Keshav metastases in the left anterior mediastinal, bilateral lower paratracheal, and left hilar regions. 4. ??Hepatic metastases in the right and left hepatic lobes as detailed above. 5. ??Multiple osseous metastases as above. I have personally reviewed the image(s) and the resident's interpretation and agree with the findings, Callum Ridley MD at 04/28/2023 10:16 AM Thank you for letting us participate in the care of this patient. ??If you are a health care provider and have any questions regarding this report, please contact the number below. ??For patients who have questions please contact the health nursing care partner that requested your imaging first. ? Electronically signed by: Callum Ridley MD, [facility] ([phone]), at 04/28/2023 10:16 AM Narrative 04/28/2023 10:16 AM EST EXAMINATION: NM PET CT STANDARD SKULL BASE TO MID-THIGH CLINICAL HISTORY: Non-small cell lung cancer initial treatment evaluation. Positive right level 4R keshav metastasis. LYNDA nodule and lymphadenopathy, suspected mets. R91.1, Generalized enlarged lymph nodes. TECHNIQUE: Following IV injection of 64-xcwwut-5-deoxyglucose (FDG) a standard uptake of approximately 60 minutes, a noncontrast CT scan followed by a PET scan were acquired from the base of the skull to mid thighs. The noncontrast CT was used for anatomic localization and photon attenuation correction of the PET scan. Blood glucose level: 85 (mg/dL) FDG dose: 10 mCi COMPARISON: CT chest with contrast 04/08/2023 FINDINGS: HEAD/NECK: Normal activity in all soft tissue regions of the neck and visualized lower head. CHEST: FDG avid posterior left upper lobe lung mass measures 5.3 cm in diameter (image 91) contiguous with an displacing the major fissure. Left lower lobe conglomerate nodules are FDG avid. Right lung base FDG avid nodules, measuring up to 1.1 cm (image 119). FDG avid adenopathy in the left anterior mediastinal, bilateral lower paratracheal, and left hilar regions. Coronary and aortic calcifications present. ABDOMEN/PELVIS: 1.5 cm FDG avid hypodense lesion in the medial segment left hepatic lobe, also seen on recent contrast-enhanced CT of 04/08/2023. Additional approximately 10 mm FDG avid hypodense lesion at the lateral periphery of the right hepatic lobe (axial image 139), also seen on recent contrast-enhanced CT. No adenopathy. SKELETON/EXTREMITIES: Multiple FDG avid osseous lesions including in multiple levels of the thoracic spine involving vertebral bodies and posterior elements, bilateral sacrum, bilateral iliac bones, bilateral anterior acetabulum, and several bilateral ribs. Many of these lesions have a subtle mixed lytic/sclerotic appearance on CT. Largest predominantly lytic lesion with pathologic fracture in the right posterior fourth rib (axial image 67). No evidence of posterior cortical breakthrough in the spine. Procedure Note Callum Ridley MD - 04/28/2023 EXAMINATION: NM PET CT STANDARD SKULL BASE TO MID-THIGH CLINICAL HISTORY: Non-small cell lung cancer initial treatmentevaluation. Positive right level 4R keshav metastasis. LYNDA nodule andlymphadenopathy, suspected mets. R91.1, Generalized enlarged lymph nodes. TECHNIQUE: Following IV injection of 95-dkaemq-0-deoxyglucose (FDG) astandard uptake of approximately 60 minutes, a noncontrast CT scan followed by aPET scan were acquired from the base of the skull to mid thighs. The noncontrast CTwas used for anatomic localization and photon attenuation correction of thePET scan. Blood glucose level: 85 (mg/dL) FDG dose: 10 mCi COMPARISON: CT chest with contrast 04/08/2023 FINDINGS: HEAD/NECK: Normal activity in all soft tissue regions of the neck and visualizedlower head. CHEST: FDG avid posterior left upper lobe lung mass measures 5.3 cm in diameter(image 91) contiguous with an displacing the major fissure. Left lower lobe conglomerate nodules are FDG avid. Right lung base FDG avid nodules, measuring up to 1.1 cm (image 119). FDG avid adenopathy in the left anterior mediastinal, bilateral lower paratracheal, and left hilar regions. Coronary and aortic calcifications present. ABDOMEN/PELVIS: 1.5 cm FDG avid hypodense lesion in the medial segment left hepatic lobe,also seen on recent contrast-enhanced CT of 04/08/2023. Additional approximately 10 mm FDG avid hypodense lesion at the lateral periphery of the right hepatic lobe (axial image 139), also seen onrecent contrast-enhanced CT. No adenopathy. SKELETON/EXTREMITIES: Multiple FDG avid osseous lesions including in multiple levels of thethoracic spine involving vertebral bodies and posterior elements, bilateralsacrum, bilateral iliac bones, bilateral anterior acetabulum, and severalbilateral ribs. Many of these lesions have a subtle mixed lytic/sclerotic appearanceon CT. Largest predominantly lytic lesion with pathologic fracture in the right posterior fourth rib (axial image 67). No evidence of posterior cortical breakthrough in the spine. IMPRESSION 1. 5.3 cm FDG avid left upper lobe malignancy, displacing the majorfissure. 2. Multiple pulmonary metastases in the bilateral lower lobes. 3. Keshav metastases in the left anterior mediastinal, bilateral lower paratracheal, and left hilar regions. 4. Hepatic metastases in the right and left hepatic lobes as detailedabove. 5. Multiple osseous metastases as above. I have personally reviewed the image(s) and the resident's interpretationand agree with the findings, Callum Ridley MD at 04/28/2023 10:16 AM Thank you for letting us participate in the care of this patient. If youare a health care provider and have any questions regarding this report,please contact the number below. For patients who have questions please contactthe health nursing care partner that requested your imaging first. Electronically signed by: Callum Ridley MD, [facility]([phone]), at 04/28/2023 10:16 AM Luciano Zhao MD IMG PET ORDERABL ES documented in this encounter Visit Diagnoses Diagnosis Left upper lobe pulmonary nodule Lymphadenopathy Enlargement of lymph nodes documented in this encounter Administered Medications Inactive Administered Medications - up to 3 most recent administrations Medication Order MAR Action Action Date Dose Rate Site fludeoxyglucose (F-18) FDG injection 0-20 mCi 0-20 mCi, Intravenous, ONCE PRN, 1 dose, Starting on Kimberlee 04/23/23 at 0724, Until Kimberlee 04/23/23 at 0719, Per Protocol, Radiology Contrast, Routine Given 04/23/2023 7:19 AM EST 10 mCi documented in this encounter Care Teams Enamel Burner Relationship Specialty Start Date End Date Mabel Middleton PA [address] [place] [address] PCP - General Family Medicine 04/20/23 documented as of this encounter
--- OUTSIDE RECORDS SUMMARY | 2023-09-07 11:56 | XMS_ITS | Encounter Summary ---
Author Organization [facility] Address [facility] [place] [address] Care Team Providers Care Work And Family Life Consultant Name Role Phone Mabel Middleton Primary Care Provider [phone] Reason for Visit * Auth/Cert (Routine) Specialty Diagnoses / Procedures Referred By Contac t Referred To Contact Diagnoses Lung mass left upper lobe lung mass Procedures PRO [facility] EBUS GUIDED SAMPL 1/2 NODE STATION/STRUX BRONCH, W ENDOBRONCHIAL ULTRASOUND (EBUS) GUIDED SAMPLING, 1/2 NODES (WRVU 4.46) Luciano Zhao MD [facility] DR [place]AC[place] [address] [facility] Referral ID Status Reason Start Date Expiration Date Visits Re quested Visits Authorized [id number] 1 1 Encounter Details Date Type Department Care Team (Late st Contact Info) Description 04/22/2023 3:01 PM EST Anesthesia [place] [address] Joey Patton MD [facility] [place] [address] Matt Cunha DO [facility] ANESTHESIOLOGY [place] [address] Anesthesia Record Procedure Summary Procedure Name Responsible Anesthesiologist Anesthesia Start Time Anesthesia Stop Time BRONCH, W ENDOBRONCHIAL ULTRASOUND (EBUS) GUIDED SAMPLING, 3+ NODES (WRVU 4.96) Joey Patton MD 04/22/23 1501 04/22/23 1633 Events Date Time Event Comment 04/22/2023 1500 1501 AN Verify 1501 Start 1501 An Start Data 1506 An Induction 1508 An Intubation 1512 Anesthesia Ready 1515 Procedure Start 1520 Quick Note Scope in ETT 1626 Extubation/LMA Out 1633 an stop data 1633 Recovery or ICU Handoff Gaviota ent care was transferred to the destination unit staff after review of the patient's medical history, current anesthetic/surgical status and plan, according to the Provider Handoff Checklist. 1633 Stop Meds Name Total IV Lidocaine 100 mg Propofol 250 mg Rocuronium 50 mg PHENYLephrine 120 mcg Ondansetron 4 mg heparin 5000 units SQ 5,000 Units PHENYLephrine INF 480 mcg sugammadex 200 mg lactated ringers 700 mL * Agents Name O2 * Blood No blood administrations on file. Lines, Drains, and Airways Type Details Placement Removal PIV 04/22/23; 1415; [id number] catheter system; 20 gauge; metacarpal vein (top of hand), left; Anatomical Landmarks; Nithin Perdomo RN; distraction, topical anesthetic spray applied, tolerated well, appears comfortable; 1; metacarpal vein (top of hand), left; no longer indicated; 04/22/23; 1750 04/22/23 1415 by Jeri Virk RN 04/22/23 175 by Nithin Rojas, CLIFF ETT Mask Ventilation: Ea sy (1); ETT Type: Cuffed, Oral; ETT Size: 8 mm; Indirect: Video; Notes: Asleep, Pre-O2, Stylette; Attempts: 1; Laryngoscopy Grade: 1; ETT Placement Verified By: Auscultation, Capnometry, Visual; Secured at Teeth: 24 cm; Inserted by: Medical Student; Removal Date: 04/22/23; Removal Time: 16204/22/23 1517 by Matt Cunha DO 04/22/23 162 by Matt Cunha DO documented in this encounter Social History Tobacco Use Types Packs/Day Years [...] on file documented as of this encounter OR Notes * Anesthesia Postprocedure Evaluation - Matt Cunha DO - 04/22/2023 4:33 PM EST Department of Anesthesiology Post-procedure Note Patient: Daniele Chan Procedure Summary Date: 04/22/23 Room / Location: [address] MAIN OR Anesthesia Start: 1501 Anesthesia Stop: 1633 Procedure: BRONCH, W ENDOBRONCHIAL ULTRASOUND (EBUS) GUIDED SAMPLING, 1/2 NODES (WRVU 4.46) Diagnosis: Lung mass (left upper lobe lung mass) Surgeons: Luciano Zhao MD Responsible Provider: Joey Patton MD Anesthesia Type: general ASA Status: 3 All Anesthesia Providers: Anesthesiologist: Joey Patton MD Supervisor Files: Matt Cunha DO Vitals Value Taken Time BP Temp Pulse Resp SpO2 Pain Level Patient Location: PACU/[facility] Level of Consciousness: Conscious but Sleepy Pain Management: Pain Being Addressed PONV: None Cardiovascular Status: At Baseline Respiratory Status: Stable Respiratory Status and Supplemental O2 (NC or FM) Postoperative Fluid Status: Intravascular EUvolemia Possible Anesthetic Complications: NONE apparent at time of evaluation Final Primary Anesthesia Type: General (The anesthetic type performed was the same as planned.) Comments: Pt transported without issue. Stable - interacting with team. Matt Cunha DO * Anesthesia Preprocedure Evaluation - Matt Cunha DO - 04/21/2023 8:40 PM EST Pre-Anesthesia Evaluation for: Daniele Chan a 62 y.o. male. Procedure(s): BRONCH, W ENDOBRONCHIAL ULTRASOUND (EBUS) GUIDED SAMPLING, 1/2 NODES (WRVU 4.46) There are no problems to display for this patient. No past medical history on file. No past surgical history on file. Social History Tobacco Use ??? Smoking status: Never ??? Smokeless tobacco: Never Substance Use Topics ??? Alcohol use: Not on file Social History Substance and Sexual Activity Drug Use Not on file No Known Allergies Medications: MAR and/or home medications have been reviewed. Physical Exam: Preprocedure Vitals Current as of 04/21/232039 No BP, pulse, respiration, SpO2, or temperature recorded. Height: Weight: BMI: IBW: Airway Assessment: Mallampati: II TM distance: >3 FB Neck ROM: full Cardiovascular Assessment: system normal Pulmonary Assessment: unlabored breathing pulmonary exam normal Dental Assessment: - normal exam Misc Assessment: Last Filed Perioperative Cognitive Screening None Anesthesia Plan: ASA 3 general, with a(n) intravenous induction Daniele Chan is a 62 y.o. male with JAVED Lung Mass presenting for EBUS. PMHx: Left upper lobe lung mass (w/ associated bilateral lower lobe lesions, mediastinal adenopathyand suspicious for spinal lesions). SOB, Dry Cough. NPO adequate. No other recent illnesses/fevers. Activity tolerance: METS>4. Anesthesia Hx: No anesthesia hx on file. Labs (reviewed): No labs on file. CT Chest 04/08/2023: LYNDA Mass w/ Innumerable pulmonary metastases in both lower lobes. Associated Mediastinal Lymphadenopathy. CXR 03/31/2023: L Hilar mass-like density measuring 4cm. LLL consolidation. Plan is for GA with ETT, PIV x1. Matttricia Cunha DO 04/21/2023 Region - Other Informed Consent: Anesthetic plan and risks discussed with patient. Anesthesia Screening documented in this encounter Plan of Treatment Upcoming Encounters Date Type Department Care Team (Late st Contact Info) Description 09/28/2023 11:30 AM EDT Office Visit Hematology/Oncology at [address] [phone] Alexsander Thomas MD [facility] DR HEMATOLOGY/[place] [address] Marya Rosenberg APRN [address] [place] [address] [place] [address] 09/28/2023 12:00 PM EDT Infusion Hematology Oncology at [address] [phone] documented as of this encounter Visit Diagnoses Not on filedocumented in this encounter Administered Medications Inactive Administered Medications - up to 3 most recent administrations Medication Order MAR Action Action Date Dose Rate Site heparin (pf) (porcine) (5,000 unit/mL) multidose injection Subcutaneous, PRN, Starting on Thu04/22/23 at 1518, Until Thu04/22/23 at 1633, Anesthesia Intra-op, Routine Given 04/22/2023 3:18 PM EST 5,000 Units lactated ringers infusion Intravenous, CONTINUOUS PRN, Starting on Thu04/22/23 at 1501, Until Thu04/22/23 at 1633, Anesthesia Intra-op New Bag 04/22/2023 3:01 PM EST lidocaine (pf) (Xylocaine) (20 mg/mL) 2% injection syringe Intravenous, PRN, Starting on Thu04/22/23 at 1507, Until Thu04/22/23 at 1633, Anesthesia Intra-op, Routine Given 04/22/2023 3:07 PM EST 100 mg ondansetron (pf) (Zofran) (2 mg/mL) injection Intravenous, PRN, Starting on Thu04/22/23 at 1527, Until Thu04/22/23 at 1633, Anesthesia Intra-op, Routine Given 04/22/2023 3:27 PM EST 4 mg PHENYLephrine (Philipp-Synephrine) (80 mcg/mL) in sodium chloride 0.9% 250 mL infusion Intravenous, CONTINUOUS PRN, Starting on Thu04/22/23 at 1534, Until Thu04/22/23 at 1633, Anesthesia Intra-op, Routine New Bag 04/22/2023 3:34 PM EST 40 mcg/min 30 mL/hr PHENYLephrine in NS (PF) (PHILIPP-SYNEPHRINE) 0.8 mg/10 mL (80 mcg/mL) multi-dose injection Syringe Intravenous, PRN, Starting on Thu04/22/23 at 1511, Until Thu04/22/23 at 1633, Anesthesia Intra-op, Routine Given 04/22/2023 3:32 PM EST 40 mcg Given 04/22/2023 3:22 PM EST 40 mcg Given 04/22/2023 3:11 PM EST 40 mcg propofoL (Diprivan) 10 mg/mL bolus injection (Anesthesia) Intravenous, PRN, Starting on Thu04/22/23 at 1507, Until Thu04/22/23 at 1633, Anesthesia Intra-op Given 04/22/2023 3:11 PM EST 50 mg Given 04/22/2023 3:09 PM EST 50 mg Given 04/22/2023 3:07 PM EST 150 mg rocuronium (Zemuron) (10 mg/mL) multi-dose injection Intravenous, PRN, Starting on Thu04/22/23 at 1508, Until Thu04/22/23 at 1633, Anesthesia Intra-op, Routine Given 04/22/2023 3:08 PM EST 50 mg sugammadex (Bridion) 100 mg/mL injection Intravenous, PRN, Starting on Thu04/22/23 at 1613, Until Thu04/22/23 at 1633, Anesthesia Intra-op, Routine Given 04/22/2023 4:13 PM EST 200 mg documented in this encounter Care Teams Work And Family Life Consultant Relationship Specialty Start Date End Date Mabel [place] [phone] PCP - General Family Medicine 04/20/23 documented as of this encounter
--- OUTSIDE RECORDS SUMMARY | 2023-09-07 11:56 | XMS_ITS | Encounter Summary ---
Author Organization [facility] Address [facility] [place] [address] Care Team Providers Care Protector Plate Attacher Name Role Phone Mabel Middleton Primary Care Provider [phone] Reason for Visit * Auth/Cert (Routine) Specialty Diagnoses / Procedures Referred By Contac t Referred To Contact Diagnoses Lung mass left upper lobe lung mass Procedures [facility] EBUS GUIDED SAMPL 1/2 NODE STATION/STRUX BRONCH, W ENDOBRONCHIAL ULTRASOUND (EBUS) GUIDED SAMPLING, 1/2 NODES (WRVU 4.46) Luciano Cisse MD [facility] [place] [address] [facility] Referral ID Status Reason Start Date Expiration Date Visits Re quested Visits Authorized [id number] 1 1 Encounter Details Date Type Department Care Team (Latest Contact Info) Description 04/22/2023 1:44 PM EST - 04/22/2023 6:00 PM [facility] Hospital Encounter [place] [address] Luciano Cisse MD [facility] THORACIC SURGERY [place], [place] [id number] Lung mass Discharge Disposition: Home Social History Tobacco Use [...] Sign Reading Time Taken Comments Blood Pressure 131/87 04/22/2023 5:15 PM EST Pulse 77 04/22/2023 2:05 PM EST Temperature 36.4 ??C (97.5 ??F) 04/22/2023 5:30 PM ES T Respiratory Rate 14 04/22/2023 5:30 PM EST Oxygen Saturation 98% 04/22/2023 5:30 PM EST Inhaled Oxygen Concentration - - Weight 66.7 kg (147 lb) 04/22/2023 2:05 PM EST Height 167.6 cm (5' 6) 04/22/2023 2:05 PM EST Body Mass Index 23.73 04/22/2023 2:05 PM EST documented in this encounter Discharge Instructions * Patient Instructions* Maryanne Mckeon PA - 04/22/2023 4:47 PM EST Today you had a bronchoscopy and an EBUS. You may cough up a small amount of blood after the procedure. This is normal. If the amount of blood being coughed up is bright red, clotting, or is increasing in amount (more than about 1 tablespoon), please call the clinic or go directly to the nearest emergency department. Call if you have difficulty breathing, shortness of breath, chest pain, a fever of greater than 101degrees, shaking chills, or if you have questions. During normal business hours, Thursday- Thursday 8:00 a.m.-5:00 p.m., please call [phone] to speak to a nurse in the Thoracic Clinic. For emergencies after hours, on weekends, or on holidays, please call [phone] and ask to speakto the Thoracic Surgeon commercial relationship manager. Diet: You should follow a regular diet as tolerated. Start slowly with liquids then work your way back up to normal foods. Smoking: If you are a smoker, please avoid smoking. If you are a smoker who needs help quitting, please call the thoracic surgery clinic at [phone]. Pain: You may have a sore throat after this procedure. Pain after this procedure is normal. The goal is for you to be able to tolerate pain so you can complete your daily activities. You may take over the counter pain medication such as acetaminophen or ibuprofen. If you are not having good pain control, please call and speak to the nurse in the Thoracic Clinic or the commercial relationship manager Attending Physician after hours. Follow up appointments: The thoracic surgery clinic will call you to review your pathology. Please call the thoracic surgery clinic at [phone] if you need to schedule an appointment. Future Appointments and Orders Future Appointments and Orders Future Appointments Provider Department Dept Phone 04/23/2023 8:30 AM [facility] PET 1 Nuclear Medicine at [facility] Arrive at: RADIOLOGY [phone] If you have any questions or concerns during normal business hours, Thursday- Thursday 8:00 a.m.-5:00 p.m., please call [phone] to speak to a nurse in the Thoracic Surgery Clinic. documented in this encounter Medications at Time of Discharge Medication Sig Dispensed Refills Start Date End Date LORazepam (Ativan) 0.5 mg tablet 0.5 mg. 04/21/19 24 documented as of this encounter H&P Notes * Israel Thomas MD - 04/22/2023 2:49 PM EST Thoracic Surgery Preop NAME: Daniele Chan DATE: 04/22/23 SURGEON: LUCIANO CISSE PROCEDURE: Bronchoscopy EBUS with biopsy BRIEF HISTORY: Daniele Chan is a 62 y.o. male with left upper lobe lung mass with associated bilateral lower lobe lesions, mediastinal adenopathy and suspicious for spinal lesions The patient reports no interval change. There has been no interval medical illness or hospitalizations. Questions have been addressed. Smoking HX: Social History Tobacco Use Smoking Status Never Smokeless Tobacco Never PMH: There are no problems to display for this patient. PSH: History reviewed. No pertinent surgical history. MEDS: No current facility-administered medications on file prior to encounter. No current outpatient medications on file prior to encounter. ALL: Allergies Allergen Reactions Declomycin [Demeclocycline] Rash Physical Exam Patient Vitals for the past 24 hrs: Temp Pulse Resp SpO2 O2 Device 04/22/23 1405 37.1 ??C (98.8 ??F) 77 20 (!) 1 % RA Gen: NAD, pleasant, sitting in bed HEENT: normocephalic, atraumatic, EOMI, sclerae anicteric Neck: supple, trachea midline Card: RRR, no M/R/G appreciated Pulm: CTAB, no wheeze/ronchi/rales appreciated, non-labored breathing on room air Abd: soft, NT Ext: warm, dry, no edema Neuro: A&Ox3, CN II-XII grossly intact, nonfocal, conversant LABS: No results found for: NA, K, CL, CO2, BUN, CREATININE FILM ON PACS: CONSENT: Yes/EMR - Yes Assessment/Plan: Daniele Chan is a 62 y.o. male presenting today for planned Bronchoscopy and EBUS due to LYNDA mass and concern for metastatic disease. Consent signed and confirmed in chart. Questions addressed. Will proceed with planned surgery. Israel Thomas MD 04/22/2023 Thoracic Surgery Service Pager [phone] documented in this encounter Miscellaneous Notes * Brief Op Note - Maryanne Mckeon PA - 04/22/2023 4:41 PM EST Brief Operative Note Patient Name: Daniele Chan : [id number] MR#: [id number] Case Date: 04/22/2023 Surgeon: Surgeon(s) and Role: * Luciano Cisse MD - Primary * Maryanne Mckeon PA - Physician Funeral Car Chauffeur Preoperative diagnosis: left upper lobe lung mass Postoperative diagnosis: * No post-op diagnosis entered * Procedure(s) (LRB): BRONCH, W ENDOBRONCHIAL ULTRASOUND (EBUS) GUIDED SAMPLING, 1/2 NODES (WRVU 4.46) (N/A) Anesthesia: General Findings: Bronchoscopy with scant secretions and no endotracheal lesions. EBUS was performed sampling nodes 11L, 4R and 7. Sample was given to cytology to confirm adequate tissue sampling. After the EBUS aggressive pulmonary toilet was performed via bronchoscopy. Complications: none Estimated Blood Loss: * No values recorded between 04/22/2023 3:16 PM and 04/22/2023 4:10 PM * Specimens removed during surgery: Order Name Source Comment Collection Info Order Time CYTOPATHOLOGY NON-GYNECOLOGICAL 04/22/2023 3:27 PM Pertinent clinical data and significant therapy: left upper lobe lung mass Clinical impression: left hilar lung mass Procedure Type: EBUS guided FNA Specimen Type: Lymph Node Description and source of specimen: station 11 L CYTOPATHOLOGY NON-GYNECOLOGICAL 04/22/2023 3:47 PM Pertinent clinical data and significant therapy: left upper lobe lung mass Clinical impression: left hilar lung mass Procedure Type: EBUS guided FNA Specimen Type: Lymph Node Description and source of specimen: station 7 CYTOPATHOLOGY NON-GYNECOLOGICAL 04/22/2023 3:59 PM Pertinent clinical data and significant therapy: left upper lobe lung mass Clinical impression: left hilR LUNG MASS Procedure Type: EBUS guided FNA Specimen Type: Lymph Node Description and source of specimen: station 4 R Fluids: Intraprocedure Crystalloid Total None PRBCs: none (See Anesthesia Record/Report for Other Blood Products) Urine Output: (no urine output recorded) Drains: none Disposition: awakened from anesthesia, extubated and taken to the recovery room in a stable condition, having suffered no apparent untoward event. Condition: doing well without problems (Please see the Surgical Encounter Summary for any Implant and Specimen details pertinent to this patient.) Surgical Infection Prevention Bundle Used? No KISHOR Clark * Op Note - Luciano Cisse MD - 04/22/2023 3:16 PM EST [facility] Operative Note Patient Name: Daniele Chan : [id number] MR#: [id number] Case Date: 04/22/2023 Surgeon: Surgeon(s) and Role: * Luciano Cisse MD - Primary * Maryanne Mckeon PA - Physician Funeral Car Chauffeur Preoperative diagnosis: left upper lobe lung mass Postoperative diagnosis: * No post-op diagnosis entered * Procedure(s) (LRB): BRONCH, W ENDOBRONCHIAL ULTRASOUND (EBUS) GUIDED SAMPLING, 1/2 NODES (WRVU 4.46) (N/A) Findings: Lesional tissue obtained from level 11 L biopsy Anesthesia: General Estimated Blood Loss: Specimens removed during surgery: Order Name Source Comment Collection Info Order Time CYTOPATHOLOGY NON-GYNECOLOGICAL 04/22/2023 3:27 PM Pertinent clinical data and significant therapy: left upper lobe lung mass Clinical impression: left hilar lung mass Procedure Type: EBUS guided FNA Specimen Type: Lymph Node Description and source of specimen: station 11 L CYTOPATHOLOGY NON-GYNECOLOGICAL 04/22/2023 3:47 PM Pertinent clinical data and significant therapy: left upper lobe lung mass Clinical impression: left hilar lung mass Procedure Type: EBUS guided FNA Specimen Type: Lymph Node Description and source of specimen: station 7 CYTOPATHOLOGY NON-GYNECOLOGICAL 04/22/2023 3:59 PM Pertinent clinical data and significant therapy: left upper lobe lung mass Clinical impression: left hilR LUNG MASS Procedure Type: EBUS guided FNA Specimen Type: Lymph Node Description and source of specimen: station 4 R Disposition: awakened from anesthesia, extubated and taken to the recovery room in a stable condition, having suffered no apparent untoward event. Condition: doing well without problems (Please see the Surgical Encounter Summary for any Implant and Specimen details pertinent to this patient.) HPI/Surgical Indications: 62-year-old man with a left hilar lung mass with radiographic findings concerning for metastatic disease Procedure Description: The patient was brought to the operating room and placed on the table in supine position. General anesthesia was induced and he was endotracheally intubated. A hard stop surgical timeout confirmed the patient's identity as well as the nature of the procedure to be performed. Diagnostic bronchoscopy was then performed. There was neovascularity in the mucosa of the upper lobesubsegmental bronchi on the left, but no overt endobronchial lesions. Secretions were minimal. The bronchoscope was removed and the endobronchial ultrasound was placed. By advancing the bronchoscope into the left lower lobe bronchus and rotating it toward the minor courtney between the upper and lower lobe bronchi, we were able to identify an echogenic mass. Multiple needle passes of the mass were obtained and lesional tissue was confirmed. The bronchoscope was then withdrawn to the mainstem bronchi, where the subcarinal space was assessed through the right and left mainstem bronchi. Lymph nodesampling was confirmed. The bronchoscope was then withdrawn into the trachea and rotated toward theright paratracheal space. There are only small subcentimeter lymph nodes were encountered; needle passes were obtained and lymph node sampling was confirmed. The endobronchial ultrasound was then removed and the conventional bronchoscope was placed. A small amount of adhered blood and clot was irrigated and suctioned free from the airway. Bronchoscope was then withdrawn and the patient was allowed to emerge from anesthesia. He was extubated in the operating room without incident and was transported to the recovery area in stable condition. Counts were waived owing to the endobronchial nature of the case, and as the attending surgeon I was present and scrubbed at the bedside throughout. Due to the absence of a qualified general surgery resident to assist I was assisted by KISHOR García. LUCIANO CISSE MD documented in this encounter Plan of Treatment Upcoming Encounters Date Type Department Care Team (Late st Contact Info) Description 09/28/2023 11:30 AM EDT Office Visit Hematology/Oncology at [address] [phone] Alexsander Thomas MD [facility] DR HEMATOLOGY/[place] [address] Marya Rosenberg APRN [address] [place] [address] [place] [address] 09/28/2023 12:00 PM EDT Infusion Hematology Oncology at [address] [phone] documented as of this encounter Procedures Procedure Name Priority Date/Time Associated Diagnosis Comments BRONCH, W ENDOBRONCHIAL ULTRASOUND (EBUS) GUIDED SAMPLING, 3+ NODES Routine 04/22/2023 4:55 PM EST Lung mass NON-TUFTER FINAL REPORT Routine 04/22/2023 4:00 PM EST CYTOPATHOLOGY NON-GYNECOLOGICAL Routine 04/22/2023 4:00 PM EST NON-TUFTER FINAL REPORT Routine 04/22/2023 3:47 PM EST CYTOPATHOLOGY NON-GYNECOLOGICAL Routine 04/22/2023 3:47 PM EST SOLID TUMOR NGS PANEL Routine 04/22/2023 3:27 PM EST NON-TUFTER FINAL REPORT Routine 04/22/2023 3:27 PM EST CYTOPATHOLOGY NON-GYNECOLOGICAL Routine 04/22/2023 3:27 PM EST [facility] Ebus Guided Sampl 3/> Node Station/Strux ([id number]) Yes 04/22/2023 3:00 PM EST Lung mass documented in this encounter Results * (ABNORMAL) Non-Flight Deck Officer Final Report (04/22/2023 4:00 PM EST) Non-Flight Deck Officer Final Report [id number] ? Location: [facility]; [facility]; The signing pathologist has (i) examined the relevant preparation(s) for the specimen(s) and (ii) rendered or confirmed the diagnosis(es). . ? Non-Flight Deck Officer Final DIAGNOSIS Positive for Malignancy Electronically signed by: ?Reji Jovel MD Verified: ??04/27/2023 17:20 ??Pathologist Performed at: ??-[facility], [place] [address] Biology Intern: Tom Manzanares MD, FCAP, ??CLIA Certificate: [id number] DISCUSSION Lymph node, station 4R (EBUS-guided FNA): Consistent with metastatic adenocarcinoma of lung origin. (Tumor is in the cell block section). THIS RESULT REQUIRES PHYSICIAN/A.P.P. FOLLOW UP CLINICAL INFORMATION Specimen Source : Lymph node, station 4R (EBUS-guided FNA, assisted) Pertinent Clinical Data and Significant Therapy: Left upper lobe lung mass Clinical Impression : Left hilar lung mass Pertinent Radiologic Findings ??: (not provided) Gross Description: Received ??in Formalin approximately 30 mL total volume of ?? clear, colorless fluid, with clots. Total Preparation: Diff Quik 1; Pap Stain 1; Cell Block 1.(A) [facility] 04/22/2023 4:00 PM EST Luciano Cisse MD PATHOLOGY/CYTOLO GY ORDERABLES Performing Organization Address [facility] de Phone Number [facility] [place] [address] * Cytopathology Non-Gynecological (04/22/2023 4:00 PM EST) AP Specimen 04/22/2023 4:00 PM EST 04/22/2023 4:00 PM EST Narrative [facility] - 04/22/2023 4:00 PM EST Specimen requisition ordered. ??Separate Pathology report to follow Luciano Cisse MD PATHOLOGY/CYTOLO GY ORDERABLES Performing Organization Address [facility] de Phone Number [facility] [place] [address] * Non-Flight Deck Officer Final Report (04/22/2023 3:47 PM EST) Non-Flight Deck Officer Final Report [id number] ? Location: [facility]; [facility]; A The signing pathologist has (i) examined the relevant preparation(s) for the specimen(s) and (ii) rendered or confirmed the diagnosis(es). . ? Non-Flight Deck Officer Final DIAGNOSIS Positive for Malignancy Electronically signed by: ?Becka SANCHEZ, Reji Kunz Verified: ??04/27/2023 17:22 ??Pathologist Performed at: ??-[facility], [place] [address] Biology Intern: Tom Manzanares MD, [facility], ??CLIA Certificate: [id number] DISCUSSION Lymph node, station 7 (EBUS-guided FNA) ??: Consistent with metastatic adenocarcinoma of lung origin. The immunoperoxidase stain results support the diagnosis. --- Immunohistochemistry Studies --- Interpretation: ? Immunohistochemical assays were performed (on paraffin-embedded cell block sections fixed in 10% neutral buffered formalin for 6-72 hours) using the polymer technique with appropriate controls. The sections are studied for TTF-1 and synaptophysin. The lesional cells are immunoreactive with TTF-1; they are negative for synaptophysin. These immunohistochemical studies provide ancillary information and are used only in conjunction with standard diagnostic procedures. CLINICAL INFORMATION Specimen Source : Lymph node, station 7 (EBUS-guided FNA, assisted) Pertinent Clinical Data and Significant Therapy: Left upper lobe lung mass Clinical Impression : Left hilar lung mass Pertinent Radiologic Findings ??: (not provided) Gross Description: Received ??in Formalin approximately 30 mL total volume of ?? cloudy, pink fluid, with clots. Total Preparation: Diff Quik 1; Pap Stain 1; Cell Block 1. [facility] 04/22/2023 3:47 PM EST Luciano Cisse MD PATHOLOGY/CYTOLO GY ORDERABLES [facility] [place] [id number] * Cytopathology Non-Gynecological (04/22/2023 3:47 PM EST) AP Specimen 04/22/2023 3:47 PM EST 04/22/2023 3:47 PM EST Narrative [facility] - 04/22/2023 3:47 PM EST Specimen requisition ordered. ??Separate Pathology report to follow Luciano Cisse MD PATHOLOGY/CYTOLO GY ORDERABLES [facility] [place] [address] * (ABNORMAL) Non-Flight Deck Officer Final Report (04/22/2023 3:27 PM EST) Non-Flight Deck Officer Final Report [id number] ? Location: [facility]; [facility]; A The signing pathologist has (i) examined the relevant preparation(s) for the specimen(s) and (ii) rendered or confirmed the diagnosis(es). . ? Addendum ADDENDUM DISCUSSION Tissue: ??Lymph node, station 11L (EBUS-guided FNA): Tumor Proportion Score (TPS): ?% Expression: 1-2% Interpretation Table: PD-L1 assay (22C3 pharmDX) for Keytruda Tumor Proportion Score (TPS): ? <1% ?PD-L1 Negative ? >=1% ? PD-L1 Expression Immunohistochemical assay was performed on paraffin-embedded tissue sections fixed in 10% neutral buffered formalin for 6-72 hours using the polymer system technique with appropriate controls. The assay was performed according to the jewelry drilling machine operator's instructions using Anti-PD-L1 (22C3, pharmDX) antibody. Electronically signed by: ?Subha Grier DO Verified: ??04/29/2023 12:19 ??Pathologist Performed at: ??-[facility], [place] [address] Biology Intern: Tom Manzanares MD, FCAP, ??CLIA Certificate: [id number] ? Non-Flight Deck Officer Final DIAGNOSIS Positive for Malignancy Electronically signed by: ?Becka SANCHEZ, Reji Kunz Verified: ??04/27/2023 17:19 ??Pathologist Performed at: ??[facility], [place] [address] Biology Intern: Tom Manzanares MD, [facility], ??CLIA Certificate: [id number] DISCUSSION Lymph node, station 11L (EBUS-guided FNA): Consistent with metastatic adenocarcinoma of lung origin. The immunoperoxidase stain results supports the diagnosis. Molecular testing and PD-L1 immunohistochemistry have been ordered; results will be issued in separate reports. --- Immunohistochemistry Studies --- Interpretation: ? Immunohistochemical assays were performed (on paraffin-embedded cell block sections fixed in 10% neutral buffered formalin for 6-72 hours) using the polymer technique with appropriate controls. The sections are studied for TT1-1 and synaptophysin. The lesional cells are immunoreactive with TTF-1; they are negative for synaptophysin. These immunohistochemical studies provide ancillary information and are used only in conjunction with standard diagnostic procedures. . DISCUSSION THIS RESULT REQUIRES PHYSICIAN/A.P.P. FOLLOW UP CLINICAL INFORMATION Specimen Source : Lymph node, station 11L (EBUS-guided FNA, assisted) Pertinent Clinical Data and Significant Therapy: Left upper lobe lung mass Clinical Impression : Left hilar lung mass Pertinent Radiologic Findings ??: (not provided) Gross Description: Received in Formalin approximately 40 mL total volume of cloudy, bloody fluid, with clots. Total Preparation: Diff-Quik 1; Pap Stain 1; Cell Block 1. Fine Needle Aspiration Immediate Assessment: Evaluation Episode #1 (1 slide): Adequate for final diagnosis. Lesional; atypical epithelial cells are present. Immediate Assessment by: ?? Reji Jovel MD. Note: The above attending cytopathologist personally examined the Immediate Assessment slides and rendered the Immediate Assessment. Such assessments are preliminary; see Diagnosis and Discussion for final interpretation.(A) [facility] 04/22/2023 3:27 PM EST Luciano Cisse MD PATHOLOGY/CYTOLO GY ORDERABLES Performing Organization Address [facility]/ZIP Co de Phone Number [facility] [place] [address] * Solid Tumor NGS Panel (04/22/2023 3:27 PM EST) Tissue 04/22/2023 3:27 PM EST 04/27/2023 7:11 AM EST Narrative Resulting Agency Comment Spec In Lab Luciano Cisse MD PATHOLOGY/CYTOLO GY ORDERABLES [facility] [place] [address] * Cytopathology Non-Gynecological (04/22/2023 3:27 PM EST) AP Specimen 04/22/2023 3:27 PM EST 04/22/2023 3:27 PM EST Narrative [facility] - 04/22/2023 3:27 PM EST Specimen requisition ordered. ??Separate Pathology report to follow Luciano Cisse MD PATHOLOGY/CYTOLO GY ORDERABLES Performing Organization Address [facility] Co de Phone Number [facility] [place] [address] documented in this encounter Visit Diagnoses Diagnosis Lung mass Swelling, mass, or lump in chest documented in this encounter Administered Medications Inactive Administered Medications - up to 3 most recent administrations Medication Order MAR Action Action Date Dose Rate Site acetaminophen (Tylenol) tablet 975 mg 975 mg, Oral, ONCE, 1 dose, On Thu04/22/23 at 1430, Administer with a SIP of water only. Maximum dose of acetaminophen is 4,000 mg from all sources in 24 hours., Day of Surgery (Day of Procedure), Routine Given 04/22/2023 2:08 PM EST 975 mg fentaNYL (pf) (50 mcg/mL) multi-dose injection 12.5 mcg 12.5 mcg, Intravenous, EVERY 5 MIN PRN, Starting on Thu04/22/23 at 1544, Until Thu04/22/23 at 2013, Pain, Mild to moderate pain (1-5 out of 10), Hold for respiratory rate less than 10 per minute. Maximum dose 200 mcg over one hour, including OR administration. If ordered with HYDROmorphone or morphine, give HYDROmorphone or morphine first and use fentaNYL for breakthrough pain., PACU Recovery, Routine fentaNYL (pf) (50 mcg/mL) multi-dose injection 25 mcg 25 mcg, Intravenous, EVERY 5 MIN PRN, Starting on Thu04/22/23 at 1544, Until Thu04/22/23 at 2012, Pain, Moderate to severe pain (6-10 out of 10), Hold for respiratory rate less than 10 per minute. Maximum dose 200 mcg over one hour, including OR administration. If ordered with HYDROmorphone or morphine, give HYDROmorphone or morphine first and use fentaNYL for breakthrough pain., PACU Recovery, Routine HYDROmorphone (Dilaudid) (2 mg/mL) multi-dose injection solution 0.2 mg 0.2 mg, Intravenous, EVERY 10 MIN PRN, Starting on Thu04/22/23 at 1544, Until Thu04/22/23 at 2012, Pain, For Mild to Moderate Pain (1-5 out of 10), Hold for respiratory rate less than 10 per minute. Maximum dose 3 mg over one hour including administrations in the OR. If multiple pain medications are ordered, start with HYDROmorphone or morphine and use fentaNYL for breakthrough pain., PACU Recovery, Routine HYDROmorphone (Dilaudid) (2 mg/mL) multi-dose injection solution 0.4 mg 0.4 mg, Intravenous, EVERY 10 MIN PRN, Starting on Thu04/22/23 at 1544, Until Thu04/22/23 at 2012, Pain, For Moderate to Severe Pain (6-10 out of 10), Hold for respiratory rate less than 10 per minute. Maximum dose 3 mg over one hour including administrations in the OR. If multiple pain medications are ordered, start with HYDROmorphone or morphine and use fentaNYL for breakthrough pain., PACU Recovery, Routine lactated ringers infusion 1,000 mL, at 100 mL/hr, Intravenous, CONTINUOUS, Starting on Thu04/22/23 at 1430, Until Thu04/22/23 at 2012, Day of Surgery (Day of Procedure) lidocaine (Xylocaine) 1% (10 mg/mL) injection 3 mg 3 mg (0.3 mL), Subcutaneous, ONCE PRN, 1 dose, Starting on Thu04/22/23 at 1403, Until Thu04/22/23 at 2012, for discomfort with PIV insertion, Day of Surgery (Day of Procedure), Routine naloxone (Narcan) (0.4 mg/mL) injection 0.04 mg 0.04 mg, Intravenous, EVERY 5 MIN PRN, 3 doses, Starting on Thu04/22/23 at 1544, Until Thu04/22/23 at 2012, Opioid Reversal, for respiratory rate less than 6 or unresponsive., May repeat every 5 minutes to increase respiratory rate. DO NOT exceed 0.12 mg total dose. Notify anesthesia immediately if administered., PACU Recovery, Routine ondansetron (pf) (Zofran) (2 mg/mL) injection 4 mg 4 mg, Intravenous, EVERY 30 MIN PRN, 2 doses, Starting on Thu04/22/23 at 1544, Until Thu04/22/23 at 2012, Nausea, Maximum total dose of 8 mg (including OR administration). If multiple antiemetics ordered, use ondansetron first and if ineffective use prochlorperazine or haloperidoL second, PACU Recovery sodium chloride 0.9 % (flush) (BD PosiFlush Normal Saline 0.9) flush 5-20 mL 5-20 mL, Intravenous, EVERY 1 MIN PRN, Starting on Thu04/22/23 at 1403, Until Thu04/22/23 at 2012, flush, Flush pertains to all indwelling lines. Flush per protocol found in the job aid using the link provided on this medication record., Day of Surgery (Day of Procedure), Routine documented in this encounter Active and Recently Administered Medications Times are shown in EST. Scheduled Medication Order 04/20/2023 04/21/2023 04/22/2023 acetaminophen (Tylenol) tablet 975 mg (COMPLETED) 975 mg, Oral, ONCE, 1 dose, On Thu04/22/23 at 1430, Administer with a SIP of water only. Maximum dose of acetaminophen is 4,000 mg from all sources in 24 hours., Day of Surgery (Day of Procedure), Routine 1408 (Given - Provid er: Jeri Virk RN) heparin (porcine) (5,000 units/1 mL) subcutaneous injection 5,000 Units 5,000 Units, Subcutaneous, SURVEILLANCE SYSTEM MONITOR TO O.R., 1 dose, On Thu04/22/23 at 1515, STAT 1515 (Due) Continuous Medication Order 04/20/2023 04/21/2023 04/22/2023 lactated ringers infusion 1,000 mL, at 100 mL/hr, Intravenous, CONTINUOUS, Starting on Thu04/22/23 at 1430, Until Thu04/22/23 at 2012, Day of Surgery (Day of Procedure) 1430 (Due) PRN Medication Order 04/20/2023 04/21/2023 04/22/2023 fentaNYL (pf) (50 mcg/mL) multi-dose injection 12.5 mcg(Linked Group 1) 12.5 mcg, Intravenous, EVERY 5 MIN PRN, Starting on Thu04/22/23 at 1544, Until Thu04/22/23 at 2012, Pain, Mild to moderate pain (1-5 out of 10), Hold for respiratory rate less than 10 per minute. Maximum dose 200 mcg over one hour, including OR administration. If ordered with HYDROmorphone or morphine, give HYDROmorphone or morphine first and use fentaNYL for breakthrough pain., PACU Recovery, Routine fentaNYL (pf) (50 mcg/mL) multi-dose injection 25 mcg(Linked Group 1) 25 mcg, Intravenous, EVERY 5 MIN PRN, Starting on Thu04/22/23 at 1544, Until Thu04/22/23 at 2012, Pain, Moderate to severe pain (6-10 out of 10), Hold for respiratory rate less than 10 per minute. Maximum dose 200 mcg over one hour, including OR administration. If ordered with HYDROmorphone or morphine, give HYDROmorphone or morphine first and use fentaNYL for breakthrough pain., PACU Recovery, Routine HYDROmorphone (Dilaudid) (2 mg/mL) multi-dose injection solution 0.2 mg(Linked Group 2) 0.2 mg, Intravenous, EVERY 10 MIN PRN, Starting on Thu04/22/23 at 1544, Until Thu04/22/23 at 2012, Pain, For Mild to Moderate Pain (1-5 out of 10), Hold for respiratory rate less than 10 per minute. Maximum dose 3 mg over one hour including administrations in the OR. If multiple pain medications are ordered, start with HYDROmorphone or morphine and use fentaNYL for breakthrough pain., PACU Recovery, Routine HYDROmorphone (Dilaudid) (2 mg/mL) multi-dose injection solution 0.4 mg(Linked Group 2) 0.4 mg, Intravenous, EVERY 10 MIN PRN, Starting on Thu04/22/23 at 1544, Until Thu04/22/23 at 2012, Pain, For Moderate to Severe Pain (6-10 out of 10), Hold for respiratory rate less than 10 per minute. Maximum dose 3 mg over one hour including administrations in the OR. If multiple pain medications are ordered, start with HYDROmorphone or morphine and use fentaNYL for breakthrough pain., PACU Recovery, Routine lidocaine (Xylocaine) 1% (10 mg/mL) injection 3 mg 3 mg (0.3 mL), Subcutaneous, ONCE PRN, 1 dose, Starting on Thu04/22/23 at 1403, Until Thu04/22/23 at 2012, for discomfort with PIV insertion, Day of Surgery (Day of Procedure), Routine naloxone (Narcan) (0.4 mg/mL) injection 0.04 mg 0.04 mg, Intravenous, EVERY 5 MIN PRN, 3 doses, Starting on Thu04/22/23 at 1544, Until Thu04/22/23 at 2012, Opioid Reversal, for respiratory rate less than 6 or unresponsive., May repeat every 5 minutes to increase respiratory rate. DO NOT exceed 0.12 mg total dose. Notify anesthesia immediately if administered., PACU Recovery, Routine ondansetron (pf) (Zofran) (2 mg/mL) injection 4 mg 4 mg, Intravenous, EVERY 30 MIN PRN, 2 doses, Starting on Thu04/22/23 at 1544, Until Thu04/22/23 at 2012, Nausea, Maximum total dose of 8 mg (including OR administration). If multiple antiemetics ordered, use ondansetron first and if ineffective use prochlorperazine or haloperidoL second, PACU Recovery sodium chloride 0.9 % (flush) (BD PosiFlush Normal Saline 0.9) flush 5-20 mL 5-20 mL, Intravenous, EVERY 1 MIN PRN, Starting on Thu04/22/23 at 1403, Until Thu04/22/23 at 2012, flush, Flush pertains to all indwelling lines. Flush per protocol found in the job aid using the link provided on this medication record., Day of Surgery (Day of Procedure), Routine Linked Groups Order Group 1: fentaNYL (pf) (50 mcg/mL) multi-dose injection 12.5 mcgJump to med 12.5 mcg, Intravenous, EVERY 5 MIN PRN, Starting on Thu04/22/23 at 1544, Until Thu04/22/23 at 2012, Pain, Mild to moderate pain (1-5 out of 10), Hold for respiratory rate less than 10 per minute. Maximum dose 200 mcg over one hour, including OR administration. If ordered with HYDROmorphone or morphine, give HYDROmorphone or morphine first and use fentaNYL for breakthrough pain., PACU Recovery, Routine Or fentaNYL (pf) (50 mcg/mL) multi-dose injection 25 mcgJump to med 25 mcg, Intravenous, EVERY 5 MIN PRN, Starting on Thu04/22/23 at 1544, Until Thu04/22/23 at 2012, Pain, Moderate to severe pain (6-10 out of 10), Hold for respiratory rate less than 10 per minute. Maximum dose 200 mcg over one hour, including OR administration. If ordered with HYDROmorphone or morphine, give HYDROmorphone or morphine first and use fentaNYL for breakthrough pain., PACU Recovery, Routine Group 2: HYDROmorphone (Dilaudid) (2 mg/mL) multi-dose injection solution 0.2 mgJump to med 0.2 mg, Intravenous, EVERY 10 MIN PRN, Starting on Thu04/22/23 at 1544, Until Thu04/22/23 at 2012, Pain, For Mild to Moderate Pain (1-5 out of 10), Hold for respiratory rate less than 10 per minute. Maximum dose 3 mg over one hour including administrations in the OR. If multiple pain medications are ordered, start with HYDROmorphone or morphine and use fentaNYL for breakthrough pain., PACU Recovery, Routine Or HYDROmorphone (Dilaudid) (2 mg/mL) multi-dose injection solution 0.4 mgJump to med 0.4 mg, Intravenous, EVERY 10 MIN PRN, Starting on Thu04/22/23 at 1544, Until Thu04/22/23 at 2012, Pain, For Moderate to Severe Pain (6-10 out of 10), Hold for respiratory rate less than 10 per minute. Maximum dose 3 mg over one hour including administrations in the OR. If multiple pain medications are ordered, start with HYDROmorphone or morphine and use fentaNYL for breakthrough pain., PACU Recovery, Routine documented in this encounter Care Teams Protector Plate Attacher Relationship Specialty Start Date End Date Mabel Middleton PA [address] [place] [address] PCP - General Family Medicine 04/20/23 documented as of this encounter
--- OUTSIDE RECORDS SUMMARY | 2023-09-07 11:56 | XMS_ITS | Encounter Summary ---
Author Organization [facility] Address [facility] [place] [address] Care Team Providers Care Tutoring Manager Name Role Phone Mabel Middleton Primary Care Provider [phone] Reason for Visit * Consultation (Routine) - Closed Specialty Diagnoses / Procedures Referred By Contac t Referred To Contact Hematology and Oncology Diagnoses Left upper lobe pulmonary nodule Lymphadenopathy Luciano Zhao MD [facility] [place] [address] Stj Hem Onc Office [address] [place] [phone] Referral ID Status Reason Start Date Expiration Date V isits Requested Visits Authorized [id number] Closed Consult, Test & Treat 04/28/2023 04/27/2024 1 1 Encounter Details Date Type Department Care Team (Late st Contact Info) Description 05/11/2023 3:30 PM EDT Office Visit Hematology/Oncology at [address] [phone] Alexsander Thomas MD [facility] HEMATOLOGY/[place] [address] 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; Secondary malignant neoplasm of brain; Secondary malignant neoplasm of liver Social History Tobacco Use Types Packs/Day Years Used Date Smoking Tobacco: Never Smokeless Tobacco: Never Alcohol Use Standard Drinks/Week Comments Never 0 (1 standard drink = 0.6 oz pur e alcohol) [facility] Utilities Answer Date Recorded In [...] place to sleep or slept in a correction (including now)? No 05/11/2023 DH IPV Inpatient [...] Sign Reading Time Taken Comments Blood Pressure 130/76 05/11/2023 3:18 PM EDT Pulse 73 05/11/2023 3:18 PM EDT Temperature 36.3 ??C (97.3 ??F) 05/11/2023 3:18 PM ED T Respiratory Rate 20 05/11/2023 3:18 PM EDT Oxygen Saturation 99% 05/11/2023 3:18 PM EDT Inhaled Oxygen Concentration - - Weight 69 kg (152 lb 3.2 oz) 05/11/2023 3:18 PM EDT Height 170.5 cm (5' 7.13) 05/11/2023 3:18 PM ED T Body Mass Index 23.75 05/11/2023 3:18 PM EDT documented in this encounter Progress Notes * Alexsander Thomas MD - 05/11/2023 3:30 PM EDT Images from the original note were not included. Hematology & Medical Oncology [place] [phone] Daniele Chan is being seen for the evaluation of lung cancer. Assessment & Plan: Daniele Chan is a 62 y.o. 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 I counseled the patient and his family about the diagnosis, pathology results, imaging findings, tumor staging and the implications of this information on the prognosis and the available treatment options noting that it will be important to check for actionable pedicab driver mutations given his minimal tobacco use hx. This may impact his treatment options and overall prognosis as well. I explained this is an incurable malignancy where systemic treatment is the mainstay. I discussed the need to consider treatment within the context of potential risks and side effects of treatment aswell as individual goals and preferences regarding quality of life. Fortunately his performance status is excellent and he has a relatively low symptom burden from hiscancer. Plan: - Liquid biopsy today for NGS - Give small size and lack of attributable sx from his clivus/C2 and CONSULTING PROJECT DIRECTOR metastases will hold on referral to radiation until we have a better sense of the systemic therapy options but may want to consider that path sooner than later given the sensitive location. - RTC in ~2 weeks to formulate a final treatment plan. Alexsander Thomas MD, MS 05/11/2023 Medical Oncology & Hematology [facility] CC: KISHOR Moss HPI/Interval History/Subjective: Daniele Chan is a 62 y.o. male patient with a past medical history significant for minimal PMH and no personal tobacco use hx with a chronic cough that ultimately prompted further evaluation as detailed below. Noted over the past 2 years that [...] his report Accompanied friend who is an oncology/enterer Jennifer. Gotten COVID vaccine. 1 booster Social History/Support Network: Home situation: 36 years. . Lives in [facility]. 90 minutes. 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 Tobacco use: None. Mom smoked but not around them. 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 [phone]. 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 The immunoperoxidase stain results supports the diagnosis. Non-Survey Party Chief Final DIAGNOSIS Positive for Malignancy DISCUSSION Lymph node, station 4R (EBUS-guided FNA): Consistent with metastatic adenocarcinoma of lung origin. (Tumor is in the cell block section) Molecular Data: Pending Treatment Course: No data to display I [...] Encounters: 05/11/23 73 04/22/23 77 04/20/23 75 Body surface area is 1.81 meters squared. Wt Readings from Last 3 Encounters: 05/11/23 [...] selfcare; totally confined to bed or chair Constitutional: Oriented to person, place, and time. No distress. Appears well-developed. HENT: Mouth/Throat: No oral lesions or exudates. Eyes: No conjunctival icterus. Cardiovascular: Normal rate and regular rhythm. Exam reveals no friction rub. No murmur heard. Pulmonary/Chest: Effort normal. No stridor. No respiratory distress. No wheezes. No rales. Abdominal: Soft. No distension. No tenderness.No rebound. Musculoskeletal: Normal range of motion. No edema. Lymphadenopathy: No cervical adenopathy. Neurological: Alert and oriented to person, place, and time. CN are grossly intact and non-focal. Skin: Skin is warm and dry. No rash noted. No erythema. Psychiatric: Normal mood and affect. Behavior is normal. Thought content normal. Review of Laboratory Data: No results found for this or any previous visit (from the past 72 hour(s)). Review of Imaging Data: I personally reviewed the reports and images in the studies as detailed in the oncology overview above. Review of Pathology Data: I personally reviewed the reports of the pathology as detailed in the oncology overview above. * Christine Hopkins RN - 05/11/2023 3:[address] [facility] Medical Oncology Note SOCIAL ASSESSMENT: See [facility] social assessment information entered. 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 Transportation plan: [X ]private vehicle [ ] RCT needs Social Work referral [ ] Unknown at this time needs Social Work referral PCP: KISHOR Hughes Rx insurance? [ ] yes [X ] no Local Pharmacy: [facility], [facility] FUNCTIONAL SCREENING: Balance difficulty: [ ]no [X ]yes-once in a blue mckeon At risk for fall: [ X ] no [ ] yes If yes, actions implemented to prevent fall. Patient/family instructed to avoid independent ambulation. Use wheelchair and ask for assistance of staff while in the clinic. ADL [ X] no limits [ ] needs dressing assistance [ ] needs meal assistance Assistive device:[ X ]none [ ]cane [ ]walker [ ]wheelchair [ ]other: explain PAIN ASSESSMENT: [ 0 ] out of 10 Location: LEARNING STYLE: Learning Needs Assessment up to date (yearly) [ X ] TEACHING: __ NCI ???Chemotherapy and You?? and folder given __ Specific chemotherapy literature provided and reviewed with patient VASCULAR ACCESS ASSESSMENT: getting chemo? [ ]yes [ ]no not sure yet Need port? [ ] yes [ ] no * Christine Hopkins, RN - 05/11/2023 3:30 PM EDT Guardant 360 kit drawn from [facility]. Kit # [id number]. Schedule picker/puller for tomorrow d/t late hours. documented in this encounter Plan of Treatment Upcoming Encounters Date Type Department Care Team (Late st Contact Info) Description 09/28/2023 11:30 AM EDT Office Visit Hematology/Oncology at [address] [phone] Alexsander Thomas MD [facility] DR HEMATOLOGY/[place] [address] Marya Rosenberg APRN [address] [place] [address] [place] [address] 09/28/2023 12:00 PM EDT Infusion Hematology Oncology at [address] [phone] Scheduled Referrals Name Type Priority Associated Diagnoses Order Schedule Referral to Hematology and Oncology Outpatient Referral Routine Left upper lobe pulmonary nodule Lymphadenopathy Ordered: 04/28/2023 documented as of this encounter Visit Diagnoses Diagnosis 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 Malignant neoplasm of upper lobe, bronchus or lung Secondary malignant neoplasm of brain Secondary malignant neoplasm of brain and spinal cord Secondary malignant neoplasm of liver documented in this encounter Care Teams Tutoring Manager Relationship Specialty Start Date End Date Mabel Middleton PA [address] [place] [phone] PCP - General Family Medicine 04/20/23 documented as of this encounter
--- OUTSIDE RECORDS SUMMARY | 2023-09-07 11:56 | XMS_ITS | Encounter Summary ---
Author Organization [facility] Address [facility] [place] [address] Care Team Providers Care Chore Worker Name Role Phone Ismael Peralta MD, [place] Primary Care Provider [phone] Encounter Details Date Type Department Care Team (Latest Contact Info) Description 10/11/2019 7:48 PM EDT - 10/11/2019 11:59 PM EDT Hospital En[place] [phone] Discharge Disposition: Home Social History Tobacco Use [...] AM EDT Office Visit Hematology/Oncology at [address] [phone] Alexsander Thomas MD [facility] DR HEMATOLOGY/[place] [address] Marya Rosenberg APRN [address] [place] [address] [place] [address] 09/28/2023 12:00 PM EDT Infusion Hematology Oncology at [address] [phone] documented as of this encounter Procedures Procedure Name Priority Date/Time Associated Diagnosis Comments COVID-19 PCR Routine 10/11/2019 10:00 AM EDT documented in this encounter Results * COVID-19 PCR (10/11/2019 10:00 AM EDT) SARS-CoV-2 RNA Not Detected Not Detected [facility] Comment: This result should be interpreted in combination with the clinical observations, patient history and epidemiological information. For testing of asymptomatic individuals, assay performance characteristics and clinical utility have not been evaluated. Testing for SARS-CoV-2 (Severe acute respiratory syndrome coronavirus 2, formerly known as 2019 novel coronavirus or 2019-nCoV) to aid in the diagnosis of COVID-19 is performed using the Equiendo RealTime SARS-CoV-2 as authorized by the FDA Emergency Use Authorization (EUA). This EUA assay is intended for In-vitro Diagnostic (IVD) use with respiratory specimens such as nasopharyngeal swabs collected from individuals during the acute phase of infection. This assay is performed based on the instructions for use provided by the [employer] and additional guidance provided by CDC and FDA. Testing is performed in the [facility] within the Department of Pathology and Laboratory Medicine at [facility], certified under the Clinical Laboratory Improvement Amendments [...] fact sheets at the following FDA website: https://www.fda.gov/medical-devices/rtpznncqg-lysgudtcyf-pviwxbl-devices/emergen -us e-authorizations#okalv43acc SARS-Cov-2 RNA Source Nasal [facility] Specimen from nose (specimen) Other / Unknown 10/11/2019 10:00 AM EDT 10/13/2019 6:00 AM EDT Narrative Resulting Agency Comment Spec In Lab Ryan Walden MD MICROBIOLOGY - [facility] ORDERABLES Performing Organization Address City/State/[facility] Co de Phone Number [facility] [place] [address] documented in this encounter Visit Diagnoses Not on filedocumented in this encounter Care Teams Chore Worker Relationship Specialty Start Date End Date Manuel Guevara MD [address] [place] [phone] PCP - General 01/15/10 04/19/23 documented as of this encounter
--- OUTSIDE RECORDS SUMMARY | 2023-09-07 11:56 | XMS_ITS | Encounter Summary ---
Author Organization [facility] [place] [address] Care Team Providers Care Die Designer Name Role Phone Mabel Middleton Primary Care Provider [phone] Reason for Visit * Auth/Cert (Routine) Specialty Diagnoses / Procedures Referred By Contac t Referred To Contact Diagnoses Lung mass left upper lobe lung mass Procedures [facility] EBUS GUIDED SAMPL 1/2 NODE STATION/STRUX BRONCH, W ENDOBRONCHIAL ULTRASOUND (EBUS) GUIDED SAMPLING, 1/2 NODES (WRVU 4.46) Luciano Cisse MD [facility] [place] [address] [facility] Referral ID Status Reason Start Date Expiration Date Visits Re quested Visits Authorized [id number] 1 1 Encounter Details Date Type Department Care Team (Late st Contact Info) Description 04/22/2023 3:15 PM EST - 04/22/2023 5:14 PM EST [place] [address] Luciano Cisse MD [facility] DR THORACIC SURGERY [place], [place] [id number] BRONCH, W ENDOBRONCHIAL ULTRASOUND (EBUS) GUIDED SAMPLING, 3+ NODES (WRVU 4.96) Social History Tobacco Use Types Packs/Day Years [...] Sign Reading Time Taken Comments Blood Pressure 140/88 04/22/2023 4:45 PM EST Pulse 77 04/22/2023 2:05 PM EST Temperature 36.5 ??C (97.7 ??F) 04/22/2023 4:31 PM ES T Respiratory Rate 14 04/22/2023 5:00 PM EST Oxygen Saturation 96% 04/22/2023 5:00 PM EST Inhaled Oxygen Concentration - - [...] Thursday- Thursday 8:00 a.m.-5:00 p.m., please call [phone] to speak to a nurse in the Thoracic Clinic. For emergencies after hours, on weekends, or on holidays, please call [phone] and ask to speakto the Thoracic Surgeon signs and displays salesperson. Diet: You should follow a regular diet as tolerated. Start slowly with liquids then work your way back up to normal foods. Smoking: If you are a smoker, please avoid smoking. If you are a smoker who needs help quitting, please call the thoracic surgery clinic at [phone]. Pain: You may have a sore throat [...] nurse in the Thoracic Clinic or the signs and displays salesperson Attending Physician after hours. Follow up appointments: The thoracic surgery clinic will call you to review your pathology. Please call the thoracic surgery clinic at [phone] if you need to schedule an appointment. Future Appointments and Orders Future Appointments and Orders Future Appointments Provider Department Dept Phone 04/23/2023 8:30 AM [facility] PET 1 Nuclear Medicine at [facility] Arrive at: 3 RADIOLOGY [phone] If you have any questions or concerns during normal business hours, Thursday- Thursday 8:00 a.m.-5:00 p.m., please call [phone] to speak to a nurse in the [...] Thomas MD 04/22/2023 Thoracic Surgery Service Pager [phone] documented in this encounter Miscellaneous Notes * Brief Op Note - Maryanne Mckeon PA - 04/22/2023 4:41 PM EST Brief Operative Note Patient Name: Daniele Chan : [id number] MR#: [id number] Case Date: 04/22/2023 Surgeon: Surgeon(s) and Role: * Luciano Cisse MD - Primary * Maryanne Mckeon PA - Physician Choral Teacher Preoperative diagnosis: left upper lobe lung mass [...] Cisse MD - 04/22/2023 3:16 PM EST [facility] Operative Note Patient Name: Daniele Chan : [id number] MR#: [id number] Case Date: 04/22/2023 Surgeon: Surgeon(s) and Role: * Luciano Cisse MD - Primary * Maryanne Mckeon PA - Physician Choral Teacher Preoperative diagnosis: left upper lobe lung mass [...] AM EDT Office Visit Hematology/Oncology at [address] [phone] Alexsander Thomas MD [facility] DR HEMATOLOGY/[place] [address] Marya Rosenberg APRN [address] [place] [address] HEMATOLOGY AND ONGOLOCY [place], [place] [id number] 09/28/2023 12:00 PM EDT Infusion Hematology Oncology at [address] [phone] documented as of this encounter Procedures Procedure Name Priority Date/Time Associated Diagnosis Comments BRONCH, W ENDOBRONCHIAL ULTRASOUND (EBUS) GUIDED SAMPLING, 3+ NODES Routine 04/22/2023 4:55 PM EST Lung mass NON-VOCAL TEACHER FINAL REPORT Routine 04/22/2023 4:00 PM EST CYTOPATHOLOGY NON-GYNECOLOGICAL Routine 04/22/2023 4:00 PM EST NON-VOCAL TEACHER FINAL REPORT Routine 04/22/2023 3:47 PM EST CYTOPATHOLOGY NON-GYNECOLOGICAL Routine 04/22/2023 3:47 PM EST SOLID TUMOR NGS PANEL Routine 04/22/2023 3:27 PM EST NON-VOCAL TEACHER FINAL REPORT Routine 04/22/2023 3:27 PM EST CYTOPATHOLOGY NON-GYNECOLOGICAL Routine 04/22/2023 3:27 PM EST [facility] Guided Sampl 3/> Node Station/Strux ([id number]) Yes 04/22/2023 3:00 PM EST Lung mass documented in this encounter Results * (ABNORMAL) Non-Hand Icer Final Report (04/22/2023 4:00 PM EST) Non-Hand Icer Final Report [id number] ? Location: [facility]; [facility]; A The signing pathologist has (i) examined the relevant preparation(s) for the specimen(s) and (ii) rendered or confirmed the diagnosis(es). . ? Non-Hand Icer Final DIAGNOSIS Positive for Malignancy Electronically signed by: ?Reji Jovel MD Verified: ??04/27/2023 17:20 ??Pathologist Performed at: ??-[facility] Dept. of Pathology, [place] [address] Erection Shop Supervisor: Tom Manzanares MD, FCAP, ??CLIA Certificate: [id number] DISCUSSION Lymph node, station 4R (EBUS-guided FNA): [...] 1; Pap Stain 1; Cell Block 1.(A) [facility] 04/22/2023 4:00 PM EST Luciano Cisse MD PATHOLOGY/CYTOLO GY ORDERABLES Performing Organization Address [facility] [place] [address] * Cytopathology Non-Gynecological (04/22/2023 4:00 PM EST) AP Specimen 04/22/2023 4:00 PM EST 04/22/2023 4:00 PM EST Narrative [facility] - 04/22/2023 4:00 PM EST Specimen requisition ordered. ??Separate Pathology report to follow Luciano Cisse MD PATHOLOGY/CYTOLO GY ORDERABLES Performing Organization Address [facility] Phone Number [facility] [place] [address] * Non-Hand Icer Final Report (04/22/2023 3:47 PM EST) Non-Hand Icer Final Report [id number] ? Location: [facility]; [facility]; A The signing pathologist has (i) examined the relevant preparation(s) for the specimen(s) and (ii) rendered or confirmed the diagnosis(es). . ? Non-Hand Icer Final DIAGNOSIS Positive for Malignancy Electronically signed by: ?Becka SANCHEZ, Reji Kunz Verified: ??04/27/2023 17:22 ??Pathologist Performed at: ??-[facility] Dept. of Pathology, [place] [address] Erection Shop Supervisor: Tom Manzanares MD, AP, ??CLIA Certificate: [id number] DISCUSSION Lymph node, station 7 (EBUS-guided FNA) [...] 1; Pap Stain 1; Cell Block 1. [facility] 04/22/2023 3:47 PM EST Luciano Cisse MD PATHOLOGY/CYTOLO GY ORDERABLES [facility] [place] [address] * Cytopathology Non-Gynecological (04/22/2023 3:47 PM EST) AP Specimen 04/22/2023 3:47 PM EST 04/22/2023 3:47 PM EST Narrative [facility] - 04/22/2023 3:47 PM EST Specimen requisition ordered. ??Separate Pathology report to follow Luciano Cisse MD PATHOLOGY/CYTOLO GY ORDERABLES [facility] [place] [address] * (ABNORMAL) Non-Hand Icer Final Report (04/22/2023 3:27 PM EST) Non-Hand Icer Final Report [id number] ? Location: [facility]; [facility]; The [...] The assay was performed according to the ultrasonic welding machine operator's instructions using Anti-PD-L1 (22C3, pharmDX) antibody. Electronically signed by: ?Subha Grier DO Verified: ??04/29/2023 12:19 ??Pathologist Performed at: ??-[facility] Dept. of Pathology, [place] [address] Erection Shop Supervisor: Tom Manzanares MD, FCAP, ??CLIA Certificate: [id number] ? Non-Hand Icer Final DIAGNOSIS Positive for Malignancy Electronically signed by: ?Becka SANCHEZ, Reji Kunz Verified: ??04/27/2023 17:19 ??Pathologist Performed at: ??-[facility] Dept. of Pathology, [place] [address] Erection Shop Supervisor: Tom Manzanares MD, [facility], ??CLIA Certificate: [id number] DISCUSSION Lymph node, station 11L (EBUS-guided FNA): [...] see Diagnosis and Discussion for final interpretation.(A) [facility] 04/22/2023 3:27 PM EST Luciano Cisse MD PATHOLOGY/CYTOLO GY ORDERABLES Performing Organization Address City/[facility]/ZIP Co de Phone Number [facility] [place] [address] * Solid Tumor NGS Panel (04/22/2023 3:27 PM EST) Tissue 04/22/2023 3:27 PM EST 04/27/2023 7:11 AM EST Narrative Resulting Agency Comment Spec In Lab Luciano Cisse MD PATHOLOGY/CYTOLO GY ORDERABLES Performing Organization Address City/[facility] Co de Phone Number [facility] [place] [address] * Cytopathology Non-Gynecological (04/22/2023 3:27 PM EST) AP Specimen 04/22/2023 3:27 PM EST 04/22/2023 3:27 PM EST Narrative [facility] - 04/22/2023 3:27 PM EST Specimen requisition ordered. ??Separate Pathology report to follow Luciano Cisse MD PATHOLOGY/CYTOLO GY ORDERABLES Performing Organization Address [facility] Co de Phone Number [facility] [place] [address] documented in this encounter Visit Diagnoses Diagnosis Lung mass Swelling, mass, or lump in chest Lung mass Swelling, mass, or lump in [...] subcutaneous injection 5,000 Units 5,000 Units, Subcutaneous, ELECTRIC WHEELCHAIR REPAIRER TO O.R., 1 dose, On Thu04/22/23 at [...] at 1544, Until Thu04/22/23 at 2013, Pain, For Moderate to Severe Pain (6-10 out of 10), Hold for respiratory rate less than 10 per minute. Maximum dose 3 mg over one hour including administrations in the OR. If multiple pain medications are ordered, start with HYDROmorphone or morphine and use fentaNYL for breakthrough pain., PACU Recovery, Routine documented in this encounter Care Teams Die Designer Relationship Specialty Start Date End Date Mabel Middleton PA [facility] [place] [address] PCP - General Family Medicine 04/20/23 documented as of this encounter
--- OUTSIDE RECORDS SUMMARY | 2023-09-07 11:56 | XMS_ITS | Encounter Summary ---
Author Organization [facility] Address [facility] [place] [address] Care Team Providers Care Patient Relations Manager Name Role Phone Ismael Peralta MD, [place] Primary Care Provider [phone] Encounter Details Date Type Department Care Team (Latest Contact Info) Description 11/10/2019 2:39 PM EDT - 11/10/2019 11:59 PM EDT Hospital [place] [phone] Discharge Disposition: Home Social History Tobacco Use [...] 11:30 AM EDT Office Visit Hematology/Oncology at [address] [phone] Alexsander Thomas MD [facility] DR HEMATOLOGY/[place] [address] Marya Rosenberg APRN [address] [place] [address] HEMATOLOGY [place] [address] 09/28/2023 12:00 PM EDT Infusion Hematology Oncology at [address] [phone] documented as of this encounter Procedures Procedure Name Priority Date/Time Associated Diagnosis Comments COVID-19 PCR Routine 11/10/2019 7:30 AM EDT documented in this encounter Results * COVID-19 PCR (11/10/2019 7:30 AM EDT) SARS-CoV-2 RNA Not Detected Not Detected [facility] Comment: This result should be interpreted in combination with the clinical observations, patient history and epidemiological information. For testing of asymptomatic individuals, assay performance characteristics and clinical utility have not been evaluated. Testing for SARS-CoV-2 (Severe acute respiratory syndrome coronavirus 2, formerly known as 2019 novel coronavirus or 2019-nCoV) to aid in the diagnosis of COVID-19 is performed using the [employer] RealTime SARS-CoV-2 as authorized by the FDA Emergency Use Authorization (EUA). This EUA assay is intended for In-vitro Diagnostic (IVD) use with respiratory specimens such as nasopharyngeal swabs collected from individuals during the acute phase of infection. This assay is performed based on the instructions for use provided by the [employer] and additional guidance provided by CDC and FDA. Testing is performed in the Clinical Genomics and Advanced Technology Laboratory within the Department of Pathology and Laboratory Medicine at [facility], certified under the Clinical Laboratory Improvement Amendments [...] fact sheets at the following FDA website: https://www.fda.gov/medical-devices/bjpueeyzq-ziznayqvat-umcuglp-devices/emergen -us e-authorizations#ukaga40jot SARS-Cov-2 RNA Source Nasal [facility] Specimen from nose (specimen) Other / Unknown 11/10/2019 7:30 AM EDT 11/11/2019 11:37 PM EDT Narrative Resulting Agency Comment Spec In Lab Ryan Walden MD MICROBIOLOGY - GENE [facility] ORDERABLES Performing Organization Address City/State/[place] Co de Phone Number [facility] [place] [address] documented in this encounter Visit Diagnoses Not on filedocumented in this encounter Care Teams Patient Relations Manager Relationship Specialty Start Date End Date Manuel Guevara MD [address] [place] [address] PCP - General 01/15/10 04/19/23 documented as of this encounter
--- OUTSIDE RECORDS SUMMARY | 2023-09-07 11:56 | XMS_ITS | Encounter Summary ---
Author Organization [facility] Address [facility] [place] [address] Care Team Providers Care Bottle Assembler Name Role Phone Ismael Peralta MD, [place] Primary Care Provider [phone] Encounter Details Date Type Department Care Team (Latest Contact Info) Description 09/20/2019 11:27 AM EDT - 09/20/2019 11:59 PM EDT Hospital [place] [address] Discharge Disposition: Home Social History Tobacco Use [...] 11:30 AM EDT Office Visit Hematology/Oncology at [address] [phone] Alexsander Thomas MD [facility] DR HEMATOLOGY/[place] [address] Marya Rosenberg APRN [address] [place] [address] HEMATOLOGY AND ONGOLOCY [place], [place] [id number] 09/28/2023 12:00 PM EDT Infusion Hematology Oncology at [address] [phone] documented as of this encounter Procedures Procedure Name Priority Date/Time Associated Diagnosis Comments COVID-19 PCR Routine 09/20/2019 8:00 AM EDT documented in this encounter Results * COVID-19 PCR (09/20/2019 8:00 AM EDT) SARS-CoV-2 RNA Not Detected Not Detected [facility] Comment: This result should be interpreted in combination with the clinical observations, patient history and epidemiological information. For testing of asymptomatic individuals, assay performance characteristics and clinical utility have not been evaluated. Testing for SARS-CoV-2 (Severe acute respiratory syndrome coronavirus 2, formerly known as 2019 novel coronavirus or 2019-nCoV) to aid in the diagnosis of COVID-19 is performed using the [employer] RealTime SARS-CoV-2 as authorized by the FDA Emergency Use Authorization (EUA). This EUA assay is intended for In-vitro Diagnostic (IVD) use with respiratory specimens such as nasopharyngeal swabs collected from individuals during the acute phase of infection. This assay is performed based on the instructions for use provided by the [employer] and additional guidance provided by CDC and FDA. Testing is performed in the Clinical Genomics and Advanced Technology Laboratory within the Department of Pathology and Laboratory Medicine at [facility], certified under the Clinical Laboratory Improvement Amendments [...] fact sheets at the following FDA website: https://www.fda.gov/medical-devices/ilxjdlrdi-stubvkwuus-rwzeqft-devices/emergen -us e-authorizations#kjnos15olo SARS-Cov-2 RNA Source Nasal [facility] Specimen from nose (specimen) Other / Unknown 09/20/2019 8:00 AM EDT 09/22/2019 4:11 PM EDT Narrative Resulting Agency Comment Spec In Lab Ryan Walden MD MICROBIOLOGY - GENE [facility] ORDERABLES Performing Organization Address City/State/[facility] Co de Phone Number [facility] [place] [address] documented in this encounter Visit Diagnoses Not on filedocumented in this encounter Care Teams Bottle Assembler Relationship Specialty Start Date End Date Manuel Guevara MD [address] [place] [address] PCP - General 01/15/10 04/19/23 documented as of this encounter
--- OUTSIDE RECORDS SUMMARY | 2023-09-07 11:56 | XMS_ITS | Encounter Summary ---
[place] [address] Care Team Providers Care Consulting Services Project Manager Name Role Phone Mabel Middleton Primary Care Provider [phone] Encounter Details Date Type Department Care Team (Late st Contact Info) Description 04/30/2023 [place] [phone] Olga Pierce Social History Tobacco Use Types Packs/Day Years Used Date Smoking Tobacco: Never Smokeless Tobacco: Never Alcohol Use Standard Drinks/Week Comments Never 0 (1 standard drink = 0.6 oz pur e alcohol) [facility] Inpatient Questions Answer Date Recorded Does [...] as of this encounter Progress Notes * Olga Pierce - 04/30/2023 1:05 PM EST This database consultant encountered pt's , Monica, crying as she sat on the mall waiting for Jesus whowas in having a CT scan of his brain. She was accompanied by their dear friend Betzaida. When this database consultant asked if I might be of support, both appreciatively welcomed this database consultant to sit with them. Monica shared her worry and concern for Jesus as they await further news of his diagnosis. They have been for 36 years and live in [place], [place]. Monica shared that they do not have children, and that Betzaida, who is a nurse, is a great support to them. Monica also shared that her dev[employer] jordy, which Jesus shares with her, is of deep importance. This chief underwriter provided emotional and spiritual support and listening presence. Prayed with Monica and Betzaida and provided them this database consultant's contact info/business card. They offered appreciation for this database consultant stopping to talk with them and for the visit. Monica appeared less tearful as this chief underwriter departed, and she was well-supported by Betzaida. documented in this encounter Plan of Treatment Upcoming Encounters Date Type Department Care Team (Late st Contact Info) Description 09/28/2023 11:30 AM EDT Office Visit Hematology/Oncology at [address] [phone] Alexsander Thomas MD [facility] DR HEMATOLOGY/[place] [address] Marya Rosenberg APRN [address] [place] [address] [place] [address] 09/28/2023 12:00 PM EDT Infusion Hematology Oncology at [address] [phone] documented as of this encounter Visit Diagnoses Not on filedocumented in this encounter Care Teams Consulting Services Project Manager Relationship Specialty Start Date End Date Mabel Middleton PA [address] [place] [address] PCP - General Family Medicine 04/20/23 documented as of this encounter
--- OUTSIDE RECORDS SUMMARY | 2023-09-07 11:56 | XMS_ITS | Encounter Summary ---
Author Organization [facility] Address [facility] [place] [address] Care Team Providers Care Attorney Law Clerk Name Role Phone Ismael Peralta MD, [place] Primary Care Provider [phone] Encounter Details Date Type Department Care Team (Latest Contact Info) Description 02/28/2020 11:27 PM EST - 02/28/2020 11:59 PM EST [place] [address] Discharge Disposition: Home Social History Tobacco Use [...] AM EDT Office Visit Hematology/Oncology at [address] [phone] Alexsander Thomas MD [facility] DR HEMATOLOGY/[place] [address] Marya Rosenberg APRN [address] [place] [address] H[place]AT[place]Y [place] [address] 09/28/2023 12:00 PM EDT Infusion Hematology Oncology at [address] [phone] documented as of this encounter Procedures Procedure Name Priority Date/Time Associated Diagnosis Comments COVID-19 PCR Routine 02/28/2020 10:25 AM EST documented in this encounter Results * COVID-19 PCR (02/28/2020 10:25 AM EST) SARS-CoV-2 RNA Not Detected Not Detected [facility] [...] diagnosis of COVID-19 is performed using the [employer] SARS-CoV-2 Assay as authorized by the FDA Emergency Use Authorization (EUA). This EUA assay is intended for In-vitro Diagnostic (IVD) use with respiratory specimens such as nasopharyngeal swabs collected from individuals during the acute phase of infection. This assay is performed based on the instructions for use provided by [employer] and additional guidance provided by CDC and FDA. Testing is performed in the Clinical Genomics and Advanced Technology Laboratory within the Department of Pathology and Laboratory Medicine at [facility], certified under the Clinical Laboratory [...] fact sheets at the following FDA website: https://www.fda.gov/medical-devices/kwqouctyrpy-xeyjotn-4954-irrxa-14-znsmvgdzy- use-a zzdnxhmjshpxt-ilflqur-vmhgcdz/wmfwl-izbllwpuaey-smde SARS-Cov-2 RNA Source Nasal [facility] Specimen from nose (specimen) Other / Unknown 02/28/2020 10:25 AM EST 02/29/2020 3:24 AM EST Narrative Resulting Agency Comment Spec In Lab Ryan Walden MD MICROBIOLOGY - [facility] ORDERABLES Performing Organization Address City/State/[facility] Co de Phone Number [facility] [place] [address] documented in this encounter Visit Diagnoses Not on filedocumented in this encounter Care Teams Attorney Law Clerk Relationship Specialty Start Date End Date Manuel Guevara MD [address] [place] [address] PCP - General 01/15/10 04/19/23 documented as of this encounter
--- OUTSIDE RECORDS SUMMARY | 2023-09-07 11:56 | XMS_ITS | Encounter Summary ---
Author Organization [facility] Address [facility] [place] [address] Care Team Providers Care Patent Lawyer Name Role Phone Mabel Middleton Primary Care Provider [phone] Reason for Referral * Consultation (Routine) - Closed Specialty Diagnoses / Procedures Referred By Contac t Referred To Contact Hematology and Oncology Diagnoses Left upper lobe pulmonary nodule Lymphadenopathy Luciano Zhao MD [facility] [place] [address] [facility] Hem Onc Office [address] [place] [phone] Referral ID Status Reason Start Date Expiration Date V isits Requested Visits Authorized [id number] Closed Consult, Test & Treat 04/28/2023 04/27/2024 1 1 Encounter Details Date Type Department Care Team (Late st Contact Info) Description 04/28/2023 Orders [place] [address] Maryanne Gao RN Left upper lobe pulmonary nodule; Lymphadenopathy Social History Tobacco Use Types Packs/Day Years Used Date Smoking Tobacco: Never Smokeless Tobacco: Never Alcohol Use Standard Drinks/Week Comments Never 0 (1 standard drink = 0.6 oz pur e alcohol) [facility] Inpatient Questions Answer Date Recorded Does Anyone [...] AM EDT Office Visit Hematology/Oncology at [address] [phone] Alexsander Thomas MD [facility] DR HEMATOLOGY/[place] [address] Marya Rosenberg APRN [address] [place] [address] DR HEMATOLOGY AND ONGOLOCY [place], [place] [id number] 09/28/2023 12:00 PM EDT Infusion Hematology Oncology at [address] [phone] Scheduled Referrals Name Type Priority Associated Diagnoses Order Schedule Referral to Hematology and Oncology Outpatient Referral Routine Left upper lobe pulmonary nodule Lymphadenopathy Ordered: 04/28/2023 documented as of this encounter Visit Diagnoses Diagnosis Left upper lobe pulmonary nodule Lymphadenopathy Enlargement of lymph nodes documented in this encounter Care Teams Patent Lawyer Relationship Specialty Start Date End Date Mabel Middleton PA [facility] [place] [phone] PCP - General Family Medicine 04/20/23 documented as of this encounter
--- OUTSIDE RECORDS SUMMARY | 2023-09-07 11:56 | XMS_ITS | Encounter Summary ---
Author Organization [facility] Address [facility] [place] [address] Care Team Providers Care Reducer Name Role Phone Mabel Middleton Primary Care Provider [phone] Encounter Details Date Type Department Care Team (Late st Contact Info) Description 04/23/2023 Orders Only [place] [phone] Cassie Mckeon, RN History of exposure to blood or body fluid Social History Tobacco Use Types Packs/Day Years Used Date Smoking Tobacco: Never Smokeless Tobacco: Never Alcohol Use Standard Drinks/Week Comments Never 0 (1 standard drink = 0.6 oz pur e alcohol) [facility] Inpatient Questions Answer Date Recorded Does Anyone [...] 11:30 AM EDT Office Visit Hematology/Oncology at [address] [phone] Alexsander Thomas MD [facility] HEMATOLOGY/[place] [address] Marya Rosenberg APRN [address] [place] [address] DR HEMATOLOGY AND ONGOLOCY [place], [place] [id number] 09/28/2023 12:00 PM EDT Infusion Hematology Oncology at [address] [phone] documented as of this encounter Results * HIV Screen, 4th Generation ([facility]CGP/APD/NLH) (04/23/2023 8:59 AM EST) HIV-1/2 Ab and Ag Negative Negative [facility] Comment: This 4th Generation HIV test [...] HIV Comment Low Risk of HIV Infection [facility] Blood 04/23/2023 8:59 AM EST 04/23/2023 9:08 AM EST Narrative Resulting Agency Comment Spec In Lab Yojana Huff SALES ENABLEMENT ANALYST IMMUNOLOGY ORDERABLE S [facility] [place] [place] [address] * Hepatitis B Surface Antigen (04/23/2023 8:59 AM EST) HepB Surface Ag Negative Negative [facility] Blood 04/23/2023 8:59 AM EST 04/23/2023 9:08 AM EST Narrative Resulting Agency Comment Spec In Lab Yojana Huff SALES ENABLEMENT ANALYST CHEMISTRY ORDERABLES [facility] [place] [address] documented in this encounter Visit Diagnoses Diagnosis History of exposure to blood or body fluid documented in this encounter Care Teams Reducer Relationship Specialty Start Date End Date Mabel Middleton PA [address] [place] [address] PCP - General Family Medicine 04/20/23 documented as of this encounter
--- OUTSIDE RECORDS SUMMARY | 2023-09-07 11:56 | XMS_ITS | Encounter Summary ---
Author Organization [facility] Address [facility] [place] [address] Care Team Providers Care Engineering Patternmaker Name Role Phone Mabel Middleton Primary Care Provider [phone] Encounter Details Date Type Department Care Team (Latest Contact Info) Description 04/23/2023 Travel Social History Tobacco Use Types Packs/Day Years Used Date Smoking Tobacco: Never Smokeless Tobacco: Never Alcohol Use Standard Drinks/Week Comments Never 0 (1 standard drink = 0.6 oz pur e alcohol) [facility] Inpatient Questions Answer Date Recorded Does [...] AM EDT Office Visit Hematology/Oncology at [address] [phone] Alexsander Thomas MD [facility] HEMATOLOGY/[place] [address] Marya Rosenberg APRN [address] [place] [address] [place] [address] 09/28/2023 12:00 PM EDT Infusion Hematology Oncology at [address] [phone] documented as of this encounter Visit Diagnoses Not on filedocumented in this encounter Care Teams Engineering Patternmaker Relationship Specialty Start Date End Date Mabel Middleton PA [facility] [place] [phone] PCP - General Family Medicine 04/20/23 documented as of this encounter
--- OUTSIDE RECORDS SUMMARY | 2023-09-07 11:56 | XMS_ITS | Encounter Summary ---
Author Organization [facility] Address [facility] [place] [address] Care Team Providers Care Xray Tech Name Role Phone Ismael Peralta MD, [place] Primary Care Provider [phone] Encounter Details Date Type Department Care Team (Latest Contact Info) Description 04/17/2020 11:14 PM EST - 04/17/2020 11:59 PM EST [place] [address] Discharge Disposition: Home Social History Tobacco Use [...] AM EDT Office Visit Hematology/Oncology at [address] [phone] Alexsander Thomas MD [facility] DR HEMATOLOGY/[place] [address] Marya Rosenberg APRN [address] [place] [address] HEMATOLOGY AND ONGOLOCY [place], [place] [id number] 09/28/2023 12:00 PM EDT Infusion Hematology Oncology at [address] [phone] documented as of this encounter Procedures Procedure Name Priority Date/Time Associated Diagnosis Comments COVID-19 PCR Routine 04/17/2020 6:37 AM EST documented in this encounter Results * COVID-19 PCR (04/17/2020 6:37 AM EST) SARS-CoV-2 RNA Not Detected Not Detected [facility] Comment: This result should be [...] diagnosis of COVID-19 is performed using the [employer] m SARS-CoV-2 Assay as authorized by the FDA Emergency Use Authorization (EUA). This EUA assay is intended for In-vitro Diagnostic (IVD) use with respiratory specimens such as nasopharyngeal swabs collected from individuals during the acute phase of infection. This assay is performed based on the instructions for use provided by [employer] and additional guidance provided by CDC and FDA. Testing is performed in the Clinical Genomics and Advanced Technology Laboratory within the Department of Pathology and Laboratory Medicine at [facility], certified under the Clinical Laboratory Improvement Amendments [...] fact sheets at the following FDA website: https://www.fda.gov/medical-devices/vdsluwdoqzi-vetcugn-4392-ishzu-55-zmwrkcghe- use-a buenktoqykird-uazlaei-oxygtzm/qcrkp-jsqallrivfr-nsan SARS-Cov-2 RNA Source Nasal [facility] Specimen from nose (specimen) Other / Unknown 04/17/2020 6:37 AM EST 04/18/2020 1:43 AM EST Narrative Resulting Agency Comment Spec In Lab Ryan Walden MD MICROBIOLOGY - [facility] ORDERABLES Performing Organization Address City/State/[facility] Co de Phone Number [facility] [place] [address] documented in this encounter Visit Diagnoses Not on filedocumented in this encounter Care Teams Xray Tech Relationship Specialty Start Date End Date Manuel Guevara MD [address] [place] [address] PCP - General 01/15/10 04/19/23 documented as of this encounter
--- OUTSIDE RECORDS SUMMARY | 2023-09-07 11:56 | XMS_ITS | Encounter Summary ---
Author Organization [facility] Address [facility] [place] [address] Care Team Providers Care Grain Operator Name Role Phone Mabel Middleton Primary Care Provider [phone] Encounter Details Date Type Department Care Team (Latest Contact Info) Description 04/30/2023 Travel Social History Tobacco Use Types Packs/Day [...] AM EDT Office Visit Hematology/Oncology at [address] [phone] Alexsander Thomas MD [facility] HEMATOLOGY/[place] [address] Marya Rosenberg APRN [address] [place] [address] [place] [address] 09/28/2023 12:00 PM EDT Infusion Hematology Oncology at [address] [phone] documented as of this encounter Visit Diagnoses Not on filedocumented in this encounter Care Teams Grain Operator Relationship Specialty Start Date End Date Mabel Middleton PA [facility] [place] [phone] PCP - General Family Medicine 04/20/23 documented as of this encounter
--- OUTSIDE RECORDS SUMMARY | 2023-09-07 11:56 | XMS_ITS | Encounter Summary ---
Author Organization [facility] [place] [address] Care Team Providers Care Front End Developer Javascript Html Css Name Role Phone Ismael Peralta MD, [place] Primary Care Provider [phone] Encounter Details Date Type Department Care Team (Late st Contact Info) Description 04/08/2023 Ancillary Procedure [place] [address] Luciano Zhao MD [facility] [place] [address] Social History Tobacco Use Types Packs/Day Years Used Date Smoking Tobacco: Never Assessed Sex and Gender Information Value Date Recorded Sex Assigned at Not on file Gender Identity Not on file Sexual Orientation Not on file documented as of this encounter Plan of Treatment Upcoming Encounters Date Type Department Care Team (Late Contact Info) Description 09/28/2023 11:30 AM EDT Office Visit Hematology/Oncology at [address] [phone] Alexsander Thomas MD [facility] DR HEMATOLOGY/[place] [address] Marya Rosenberg APRN [address] [place] [address] HEMATOLOGY AND ONGOLOCY [place], [place] [address] 09/28/2023 12:00 PM EDT Infusion Hematology Oncology at [address] [phone] documented as of this encounter Procedures Procedure Name Priority Date/Time Associated Diagnosis Comments FILM LIBRARY STORAGE ONLY CT CHEST Routine 04/08/2023 12:00 AM EST documented in this encounter Results * Film Library- Storage Only CT Chest (04/08/2023 12:00 AM EST) Narrative ABEL - 04/14/2023 4:29 PM EST This exam is auto-finalizing. It's purpose is for storage only. Luciano Zhao MD IMG FILM LIBRARY ORDERABLES Performing Organization Address City/State/[facility] Co de Phone Number [place], [place] documented in this encounter Visit Diagnoses Not on filedocumented in this encounter Care Teams Front End Developer Javascript Html Css Relationship Specialty Start Date End Date Manuel Guevara MD [address] [place] [address] PCP - General 01/15/10 04/19/23 documented as of this encounter
--- OUTSIDE RECORDS SUMMARY | 2023-09-07 11:56 | XMS_ITS | Encounter Summary ---
Author Organization [facility] Address [facility] [place] [address] Care Team Providers Care Executive Housekeeper Name Role Phone Mabel Middleton Primary Care Provider [phone] Encounter Details Date Type Department Care Team (Latest Contact Info) Description 04/20/2023 Travel Social History Tobacco Use Types Packs/Day Years Used Date Smoking Tobacco: Never Smokeless Tobacco: Never Sex and Gender Information Value Date Recorded Sex Assigned at Not on file Gender Identity Not on file Sexual Orientation Not on file documented as of this encounter Plan of Treatment Upcoming Encounters Date Type Department Care Team (Late st Contact Info) Description 09/28/2023 11:30 AM EDT Office Visit Hematology/Oncology at [address] [phone] Alexsander Thomas MD [facility] DR HEMATOLOGY/[place] [address] Marya Rosenberg APRN [address] [place] [address] DR HEMATOLOGY AND ONGOLOCY [place], [place] [id number] 09/28/2023 12:00 PM EDT Infusion Hematology Oncology at [address] [phone] documented as of this encounter Visit Diagnoses Not on filedocumented in this encounter Care Teams Executive Housekeeper Relationship Specialty Start Date End Date Mabel Middleton PA [address] [place] [phone] PCP - General Family Medicine 04/20/23 documented as of this encounter
--- OUTSIDE RECORDS SUMMARY | 2023-09-07 11:56 | XMS_ITS | Encounter Summary ---
Author Organization [facility] Address [facility] [place] [address] Care Team Providers Care Probate Clerk Name Role Phone Ismael Peralta MD, [place] Primary Care Provider [phone] Encounter Details Date Type Department Care Team (Latest Contact Info) Description 04/03/2020 10:17 AM EST - 04/03/2020 11:59 PM [facility] Hospital [place] [address] Discharge Disposition: Home Social History Tobacco Use [...] 11:30 AM EDT Office Visit Hematology/Oncology at [address] [phone] Alexsander Thomas MD [facility] DR HEMATOLOGY/[place] [address] Marya Rosenberg APRN [address] [place] [address] HEMATOLOGY AND ONGOLOCY [place], [place] [id number] 09/28/2023 12:00 PM EDT Infusion Hematology Oncology at [address] [phone] documented as of this encounter Procedures Procedure Name Priority Date/Time Associated Diagnosis Comments COVID-19 PCR Routine 04/03/2020 6:41 AM EST documented in this encounter Results * COVID-19 PCR (04/03/2020 6:41 AM EST) SARS-CoV-2 RNA Not Detected Not Detected [facility] Comment: This result should be [...] diagnosis of COVID-19 is performed using the [employer] SARS-CoV-2 Assay as authorized by the FDA Emergency Use Authorization (EUA). This EUA assay is intended for In-vitro Diagnostic (IVD) use with respiratory specimens such as nasopharyngeal swabs collected from individuals during the acute phase of infection. This assay is performed based on the instructions for use provided by [employer] and additional guidance provided by CDC and FDA. Testing is performed in the Clinical Genomics and Advanced Technology Laboratory within the Department of Pathology and Laboratory Medicine at [facility], certified under the Clinical Laboratory Improvement [...] fact sheets at the following FDA website: https://www.fda.gov/medical-devices/eueirbycnwx-cltbufc-1886-oovxw-78-hliuzcvog- use-a ciectkbmezupt-irgdofz-rhxsggj/mvetv-pcpckwebvcl-gofx SARS-Cov-2 RNA Source Nasal [facility] Specimen from nose (specimen) Other / Unknown 04/03/2020 6:41 AM EST 04/04/2020 4:15 PM EST Narrative Resulting Agency Comment Spec In Lab Ryan Walden MD MICROBIOLOGY - [facility] ORDERABLES Performing Organization Address City/State/[facility] Co de Phone Number [facility] [place] [address] documented in this encounter Visit Diagnoses Not on filedocumented in this encounter Care Teams Probate Clerk Relationship Specialty Start Date End Date Manuel Guevara MD [address] [place] [address] PCP - General 01/15/10 04/19/23 documented as of this encounter
--- OUTSIDE RECORDS SUMMARY | 2023-09-07 11:56 | XMS_ITS | Encounter Summary ---
Author Organization [facility] Address [facility] [place] [address] Care Team Providers Care On Line Csr Name Role Phone Mabel Middleton Primary Care Provider [phone] Reason for Visit * Diagnostic Test (Routine) - Closed Specialty Diagnoses / Procedures Referred By Contac t Referred To Contact Radiology Diagnoses Left upper lobe pulmonary nodule Lymphadenopathy Procedures NM PET CT Skull Base to Mid-thigh Luciano Zhao MD [facility] [place] [address] [place] [address] Referral ID Status Reason Start Date Expiration Date V isits Requested Visits Authorized [id number] Closed Specialty Service Requested 04/23/2023 05/23/2023 1 1 Encounter Details Date Type Department Care Team (Latest Contact Info) Description 04/23/2023 7:01 AM EST - 04/23/2023 11:59 PM [facility] Hospital En[place] [address] Luciano Zhao MD [facility] [place] [address] Discharge Disposition: Home Social History Tobacco Use Types Packs/Day Years Used Date Smoking Tobacco: Never Smokeless Tobacco: Never Alcohol Use Standard Drinks/Week Comments Never 0 (1 standard drink = 0.6 oz pur e alcohol) [facility] Inpatient Questions Answer Date Recorded Does [...] AM EDT Office Visit Hematology/Oncology at [address] [phone] Alexsander Thomas MD [facility] DR HEMATOLOGY/[place] [address] Marya Rosenberg [address] [place], [place] [address] 09/28/2023 12:00 PM EDT Infusion Hematology Oncology at [address] [phone] documented as of this encounter Procedures Procedure Name Priority Date/Time Associated Diagnosis Comments NM PET CT SKULL BASE TO MID-THIGH ([facility]) Routine 04/23/2023 8:28 AM EST Left upper lobe pulmonary nodule Lymphadenopathy POCT GLUCOSE Routine 04/23/2023 7:14 AM EST documented in this encounter Results * POCT Glucose (04/23/2023 7:14 AM EST) POC Glucose 85 65 - 199 mg/dL [facility] Comment: Supplemental ranges: <140 mg/dL before meals <180 mg/dL all other times of the day Blood 04/23/2023 7:14 AM EST 04/23/2023 7:14 AM EST Luciano Zhao MD POINT OF CARE TE ST ORDERABLES Performing Organization Address City/State/[facility] [place] [address] documented in this encounter Visit Diagnoses Not on filedocumented in this encounter Care Teams On Line Csr Relationship Specialty Start Date End Date Mabel Middleton PA [address] [place] [address] PCP - General Family Medicine 04/20/23 documented as of this encounter
--- OUTSIDE RECORDS SUMMARY | 2023-09-07 11:56 | XMS_ITS | Encounter Summary ---
Author Organization [facility] Address [facility] [place] [address] Care Team Providers Care Associate Attorney Name Role Phone Mabel Middleton Primary Care Provider [phone] Reason for Visit * Consultation (Urgent) - Closed Specialty Diagnoses / Procedures Referred By Contac t Referred To Contact Thoracic Surgery Diagnoses Other nonspecific abnormal finding of lung field Left hilar masslike density, approx 4cm, LLL consolidation Mabel Middleton PA [address] [place] [address] [facility] Thoracic Surg [address] [place] [phone] Referral ID Status Reason Start Date Expiration Date V isits Requested Visits Authorized [id number] Closed Consult, Test & Treat PCP Updated and/or Approved 04/08/2023 04/08/2024 6 6 Encounter Details Date Type Department Care Team (Latest Contact Info) Description 05/04/2023 4:15 PM EDT TH Visit (TeleHealth) [place] [address] Luciano Zhao MD [facility] [place] [address] 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 Chief complaint: Left upper lobe lung mass History of present illness: Mr. Chan is a 62-year-old previously healthy man referred to me in March for a left upper lobe lung mass with multiple satellite nodules. I recommended a workup including bronchoscopic biopsy, PET/CT and brain MRI and he has completed these tests. His bronchoscopicbiopsy was done on April 22 and was uncomplicated. Imaging: The patient's PET/CT dated March was notable for FDG uptake and a 5.3 cm hilar malignancy as well as multiple pulmonary nodules, mediastinal lymph nodes, and liver nodules and osseous nodules. The patient's brain MRI dated April 29 demonstrated multiple enhancing nodules throughout the cerebrum and cerebellum. 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 I advised the patient that this was an incurable malignancy and that systemic medical therapy would form the mainstay of his treatment. He is scheduled to see medicaloncology next week. I advised him that no further follow-up with thoracic surgery was indicated alth ough I was happy to see him at any time. Plan: Medical oncology referral for management of metastatic adenocarcinoma of the lung LUCIANO ZHAO MD documented in this encounter Plan of Treatment Upcoming Encounters Date Type Department Care Team (Late st Contact Info) Description 09/28/2023 11:30 AM EDT Office Visit Hematology/Oncology at [address] [phone] Alexsander Thomas MD [facility] DR HEMATOLOGY/[place] [address] Marya Rosenberg APRN [address] [place] [address] [place] [address] 09/28/2023 12:00 PM EDT Infusion Hematology Oncology at [address] [phone] documented as of this encounter Visit Diagnoses Diagnosis 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
--- OUTSIDE RECORDS SUMMARY | 2023-09-07 11:56 | XMS_ITS | Encounter Summary ---
Author Organization [facility] Address [facility] [place] [address] Care Team Providers Care Director Of Clinical Education Name Role Phone Mabel Middleton Primary Care Provider [phone] Encounter Details Date Type Department Care Team (Late st Contact Info) Description 04/08/2023 Interpretation Only [place] [phone] Tip Steiner MD [facility] [place] [address] Social History Tobacco Use Types Packs/Day Years Used Date Smoking Tobacco: Never Assessed [facility] Utilities Answer Date Recorded In the past [...] AM EDT Office Visit Hematology/Oncology at [address] [phone] Alexsander Thomas MD [facility] DR HEMATOLOGY/[place] [address] Marya Rosenberg APRN [address] [place] [address] HEMATOLOGY AND ONGOLOCY [place], [place] [address] 09/28/2023 12:00 PM EDT Infusion Hematology Oncology at [address] [phone] documented as of this encounter Procedures Procedure Name Priority Date/Time Associated Diagnosis Comments FILM LIBRARY STORAGE ONLY CT CHEST Routine 04/08/2023 7:55 AM EST documented in this encounter Results * Film Library- Storage Only CT Chest (04/08/2023 7:55 AM EST) 07/19/2023 11:0 8 PM EDT Narrative [facility] - 07/19/2023 11:08 PM EDT This exam is auto-finalizing. It's purpose is for storage only. Tip Steiner MD IMG FILM LIBRARY ORD ERABLES Performing Organization Address City/State/[facility] Co de Phone Number [place], [place] documented in this encounter Visit Diagnoses Not on filedocumented in this encounter Care Teams Director Of Clinical Education Relationship Specialty Start Date End Date Mabel Middleton PA [address] [place] [address] PCP - General Family Medicine 04/20/23 documented as of this encounter
--- OUTSIDE RECORDS SUMMARY | 2023-09-07 11:56 | XMS_ITS | Encounter Summary ---
Author Organization [facility] Address [facility] [place] [address] Care Team Providers Care Computer Designer Name Role Phone Mabel Middleton Primary Care Provider [phone] Encounter Details Date Type Department Care Team (Late st Contact Info) Description 04/30/2023 Telephone Hematology/Oncology at [address] [phone] Leigh Goff Social History Tobacco Use Types Packs/Day Years [...] encounter Miscellaneous Notes * Telephone Encounter - Leigh Goff - 04/30/2023 11:10 AM EST Daniele' neighbor/ friend, Raul, called asking about a referral placed by Dr. Zhao. Daniele is requesting to see Dr. Jaimes and would like to see him in [place]. I did relay that the referral would need to be reviewed and our team would assign Daniele to the appropriate provider based on his diagnosis. documented in this encounter Plan of Treatment Upcoming Encounters Date Type Department Care Team (Late st Contact Info) Description 09/28/2023 11:30 AM EDT Office Visit Hematology/Oncology at [address] [phone] Alexsander Thomas MD [facility] DR HEMATOLOGY/[place] [address] Marya Rosenberg APRN [address] [place] [address] [place] [id number] 09/28/2023 12:00 PM EDT Infusion Hematology Oncology at [address] [phone] documented as of this encounter Visit Diagnoses Not on filedocumented in this encounter Care Teams Computer Designer Relationship Specialty Start Date End Date Mabel Middleton PA [address] [place] [phone] PCP - General Family Medicine 04/20/23 documented as of this encounter
--- OUTSIDE RECORDS SUMMARY | 2023-09-07 11:56 | XMS_ITS | Encounter Summary ---
Author Organization [facility] Address [facility] [place] [address] Care Team Providers Care Model Home Sales Greeter Name Role Phone Mabel Middleton Primary Care Provider [phone] Encounter Details Date Type Department Care Team (Latest Contact Info) Description 04/23/2023 9:00 AM EST Laboratory Appointment Lab [address] [place] [phone] History of exposure to blood or body [...] 11:30 AM EDT Office Visit Hematology/Oncology at [address] [phone] Alexsander Thomas MD [facility] HEMATOLOGY/[place] [address] Marya Rosenberg APRN [address] [place] [address] [place] [address], [place] [id number] 09/28/2023 12:00 PM EDT Infusion Hematology Oncology at [address] [phone] documented as of this encounter Procedures Procedure Name Priority Date/Time Associated Diagnosis Comments HC HEPATITIS C ANTIBODY Routine 04/23/2023 8:59 AM EST History of exposure to blood or body fluid HEPATITIS C ANTIBODY Routine 04/23/2023 8:59 AM EST History of exposure to blood or body fluid HC VENIPUNCTURE Routine 04/23/2023 8:59 AM EST History of exposure to blood or body fluid HC HEPATITIS B SURFACE AG Routine 04/23/2023 8:59 AM EST History of exposure to blood or body fluid documented in this encounter Results * Hepatitis C Antibody (04/23/2023 8:59 AM EST) Hepatitis C Ab Negative Negative [facility] Blood 04/23/2023 8:59 AM EST 04/23/2023 9:08 AM EST Narrative Resulting Agency Comment Spec In Lab Yojana Huff RAILCAR SWITCHMAN IMMUNOLOGY ORDERABLE S [facility] [place] [address] * Hepatitis B Surface Antigen (04/23/2023 8:59 AM EST) HepB Surface Ag Negative Negative [facility] Blood 04/23/2023 8:59 AM EST 04/23/2023 9:08 AM EST Narrative Resulting Agency Comment Spec In Lab Yojana Huff RAILCAR SWITCHMAN CHEMISTRY ORDERABLES Performing Organization Address [facility] Co de Phone Number [facility] [place] [place] [address] * HIV Screen, 4th Generation ([facility]/CGP/APD/NLH) (04/23/2023 8:59 AM EST) HIV-1/2 Ab and Ag Negative Negative [facility] Comment: This 4th Generation [...] HIV Comment Low Risk of HIV Infection [facility] Blood 04/23/2023 8:59 AM EST 04/23/2023 9:08 AM EST Narrative Resulting Agency Comment Spec In Lab Yojana Huff APRN IMMUNOLOGY ORDERABLE S Performing Organization Address [facility] Co de Phone Number [facility] [place] [place] [address] documented in this encounter Visit Diagnoses Diagnosis History of exposure to blood or body fluid documented in this encounter Care Teams Model Home Sales Greeter Relationship Specialty Start Date End Date Mabel Middleton PA [address] [place] [address] PCP - General Family Medicine 04/20/23 documented as of this encounter
--- OUTSIDE RECORDS SUMMARY | 2023-09-07 11:56 | XMS_ITS | Encounter Summary ---
Author Organization [facility] Address [facility] [place] [address] Care Team Providers Care Egyptologist Name Role Phone Ismael Peralta MD, [place] Primary Care Provider [phone] Encounter Details Date Type Department Care Team (Latest Contact Info) Description 11/20/2019 7:33 PM EDT - 11/20/2019 11:59 PM EDT Hospital [place] [phone] Discharge Disposition: Home Social History Tobacco Use [...] AM EDT Office Visit Hematology/Oncology at [address] [phone] Alexsander Thomas MD [facility] DR HEMATOLOGY/[place] [address] Marya Rosenberg APRN [address] [place] [address] [place] [address] 09/28/2023 12:00 PM EDT Infusion Hematology Oncology at [address] [phone] documented as of this encounter Procedures Procedure Name Priority Date/Time Associated Diagnosis Comments COVID-19 PCR Routine 11/20/2019 10:10 AM EDT documented in this encounter Results * COVID-19 PCR (11/20/2019 10:10 AM EDT) SARS-CoV-2 RNA Not Detected Not Detected [facility] [...] diagnosis of COVID-19 is performed using the [employer] SARS-CoV-2 Assay as authorized by the FDA Emergency Use Authorization (EUA). This EUA assay is intended for In-vitro Diagnostic (IVD) use with respiratory specimens such as nasopharyngeal swabs collected from individuals during the acute phase of infection. This assay is performed based on the instructions for use provided by [employer] and additional guidance provided by CDC and FDA. Testing is performed in the Clinical Genomics and Advanced Technology Laboratory within the Department of Pathology and Laboratory Medicine at [facility], certified under the Clinical Laboratory Improvement [...] fact sheets at the following FDA website: https://www.fda.gov/medical-devices/vcjmyyufejy-xyaldkm-6648-giaub-94-hdkstrwod- use-a etgyjfuwmohut-lwawqmh-pwizbce/vlhgq-vjprfqjlqzu-prxp SARS-Cov-2 RNA Source ASSOCIATE BUYER Swab [facility] Nasopharyngeal swab (specimen) Other / Unknown 11/20/2019 10:10 AM EDT 11/22/2019 7:31 AM EDT Narrative Resulting Agency Comment Spec In Lab Ryan Walden MD MICROBIOLOGY - [facility] ORDERABLES Performing Organization Address City/State/[facility] Co de Phone Number [facility] [place] [address] documented in this encounter Visit Diagnoses Not on filedocumented in this encounter Care Teams Egyptologist Relationship Specialty Start Date End Date Manuel Guevara MD [address] [place] [address] PCP - General 01/15/10 04/19/23 documented as of this encounter
--- OUTSIDE RECORDS SUMMARY | 2023-09-07 11:56 | XMS_ITS | Encounter Summary ---
Author Organization [facility] Address [facility] [place] [address] Care Team Providers Care Milk Bottler Name Role Phone Mabel Middleton Primary Care Provider Encounter Details Date Type Department Care Team (Late st Contact Info) Description 04/20/2023 Orders Only [place] [address] Luciano Zhao MD [facility] [place] [address] Lung mass Social History Tobacco Use Types Packs/Day Years Used Date Smoking Tobacco: Never Smokeless Tobacco: Never [facility] Inpatient Questions Answer Date Recorded Does Anyone [...] AM EDT Office Visit Hematology/Oncology at [address] [phone] Alexsander Thomas MD [facility] DR HEMATOLOGY/[place] [address] Marya Rosenberg APRN [address] [place] [address] [place] [id number] 09/28/2023 12:00 PM EDT Infusion Hematology Oncology at [address] [phone] documented as of this encounter Visit Diagnoses Diagnosis Lung mass Swelling, mass, or lump in chest documented in this encounter Care Teams Milk Bottler Relationship Specialty Start Date End Date Mabel Middleton PA [facility] [place] [address] PCP - General Family Medicine 04/20/23 documented as of this encounter
--- OUTSIDE RECORDS SUMMARY | 2023-09-07 11:56 | XMS_ITS | Encounter Summary ---
Author Organization [facility] Address [facility] [place] [address] Care Team Providers Care Zigzag Stitcher Name Role Phone Ismael Peralta MD, [place] Primary Care Provider [phone] Encounter Details Date Type Department Care Team (Latest Contact Info) Description 03/13/2020 11:02 PM EST - 03/13/2020 11:59 PM EST Hospital [place] [address] Discharge Disposition: Home Social History Tobacco Use [...] 11:30 AM EDT Office Visit Hematology/Oncology at [address] [phone] Alexsander Thomas MD [facility] DR HEMATOLOGY/[place] [address] Marya Rosenberg APRN [address] [place] [address] [place] [address] 09/28/2023 12:00 PM EDT Infusion Hematology Oncology at [address] [phone] documented as of this encounter Procedures Procedure Name Priority Date/Time Associated Diagnosis Comments COVID-19 PCR Routine 03/13/2020 11:30 AM EST documented in this encounter Results * COVID-19 PCR (03/13/2020 11:30 AM EST) SARS-CoV-2 RNA Not Detected Not Detected [facility] [...] diagnosis of COVID-19 is performed using the [employer] m SARS-CoV-2 Assay as authorized by the FDA Emergency Use Authorization (EUA). This EUA assay is intended for In-vitro Diagnostic (IVD) use with respiratory specimens such as nasopharyngeal swabs collected from individuals during the acute phase of infection. This assay is performed based on the instructions for use provided by [employer] and additional guidance provided by CDC and FDA. Testing is performed in the Clinical Genomics and Advanced Technology Laboratory within the Department of Pathology and Laboratory Medicine at [facility], certified under the Clinical Laboratory [...] fact sheets at the following FDA website: https://www.fda.gov/medical-devices/ftdcexwnnqd-akqbgmo-6421-rtczm-06-qfebrnjkv- use-a xolrcqgpsszeg-inoxpqr-cbaicpu/ntlih-clzybqlgpph-ywif SARS-Cov-2 RNA Source Nasal [facility] Specimen from nose (specimen) Other / Unknown 03/13/2020 11:30 AM EST 03/14/2020 10:49 AM EST Narrative Resulting Agency Comment Spec In Lab Ryan Walden MD MICROBIOLOGY - [facility] ORDERABLES Performing Organization Address City/State/[facility] Co de Phone Number [facility] [place] [address] documented in this encounter Visit Diagnoses Not on filedocumented in this encounter Care Teams Zigzag Stitcher Relationship Specialty Start Date End Date Manuel Guevara MD [address] [place] [address] PCP - General 01/15/10 04/19/23 documented as of this encounter
--- OUTSIDE RECORDS SUMMARY | 2023-09-07 11:56 | XMS_ITS | Encounter Summary ---
Author Organization [facility] Address [facility] [place] [address] Care Team Providers Care Talcer Name Role Phone Mabel Middleton Primary Care Provider [phone] Reason for Referral * Diagnostic Test (Routine) - Closed Specialty Diagnoses / Procedures Referred By Contac t Referred To Contact Radiology Diagnoses Left upper lobe pulmonary nodule Lymphadenopathy Procedures NM PET CT Skull Base to Mid-thigh Luciano Cisse MD [facility] [place] [address] [facility] [place] [address] Referral ID Status Reason Start Date Expiration Date V isits Requested Visits Authorized [id number] Closed Specialty Service Requested 04/23/2023 05/23/2023 1 1 * Diagnostic Test (Routine) - Closed Specialty Diagnoses / Procedures Referred By Contac t Referred To Contact Radiology Diagnoses Left upper lobe pulmonary nodule Lymphadenopathy Procedures MRI Brain wwo Contrast (Generic) Luciano Cisse MD [facility] [place] [address] [place] [address] Referral ID Status Reason Start Date Expiration Date V isits Requested Visits Authorized [id number] Closed Specialty Service Requested 04/20/2023 2024 1 1 Reason for Visit * Reason Comments Establish Care * Consultation (Urgent) - Closed Specialty Diagnoses / Procedures Referred By Mimi t Referred To Contact Thoracic Surgery Diagnoses Other nonspecific abnormal finding of lung field Left hilar masslike density, approx 4cm, LLL consolidation Mabel Middleton PA [address] [place] [address] [facility] Thoracic Surg [address] [place] [id number] Referral ID Status Reason Start Date Expiration Date V isits Requested Visits Authorized [id number] Closed Consult, Test & Treat PCP Updated and/or Approved 04/08/2023 04/08/2024 6 6 Encounter Details Date Type Department Care Team (Late st Contact Info) Description 04/20/2023 9:30 AM EST Office Visit [place] [address] Luciano Cisse MD [facility] [place] [address] Left upper lobe pulmonary nodule; Lymphadenopathy Social History Tobacco Use Types Packs/Day Years Used Date Smoking Tobacco: Never Smokeless Tobacco: Never Tobacco Cessation:Counseling Given: Not Answered Sex and Gender Information Value Date Recorded Sex Assigned at Not on file Gender Identity Not on file Sexual Orientation Not on file documented as of this encounter Last Filed Vital Signs Vital Sign Reading Time Taken Comments Blood Pressure 153/90 04/20/2023 9:23 AM EST Pulse 75 04/20/2023 9:23 AM EST Temperature 36 ??C (96.8 ??F) 04/20/2023 9:23 AM EST Respiratory Rate 13 04/20/2023 9:23 AM EST Oxygen Saturation 98% 04/20/2023 9:23 AM EST Inhaled Oxygen Concentration - - Weight 67.2 kg (148 lb 2.4 oz) 04/20/2023 9:23 A M EST Height 168.4 cm (5' 6.3) 04/20/2023 9:23 AM EST Body Mass Index 23.7 04/20/2023 9:23 AM EST documented in this encounter Patient Instructions * Patient Instructions* Maryanne Gao RN - 04/20/2023 9:30 AM EST Thank you for visiting Dr. Cisse in clinic 04/20/23 Dr. Cisse would like to see you back in clinic with a recent PET scan and an MRI of your brain. We will also be scheduling an endobronchial ultrasound with biopsies Endobronchial Ultra Sound or EBUS, is a procedure used to diagnose and stage lung cancer. It is done using a flexible camera, called a bronchoscope that is passed down through the mouth, into the lung. The device is able to take pictures, samples of tissue and fluids, as well as inspect nearby lymph nodes. This is a less invasive alternative to some surgeries. You will check in for you PET scan at [employer] [facility]. Please refrain from eating or drinking anything except water for 6 hours before. You may take your oral diabetic medications, but PLEASE do not take your long acting insulin injection for 6 hours prior to your PET scan. Please do not eat any GUM or MINTS or use toothpaste either. Please do not perform any heavy exercise such as jogging, skiing, tennis, etc. for at least 12 hours prior If you do eat or drink anything, your test will be canceled and rescheduled for a later date. Exercise each day for 30 minutes or longer. Daily aerobic exercise for at least 30 minutes will help improve your endurance and improve the breathing capacity of your lungs. This means that you are breathing hard, your heart is beating fast and that you are sweating. Examples of this include walking, biking, swimming, and using a treadmill or stationary bike. Please call Thoracic surgery at with any questions or concerns. documented in this encounter Progress Notes * Luciano Cisse MD - 04/20/2023 9:30 AM EST Thoracic surgery new patient evaluation I saw and examined Mr. Chris with KISHOR Pena, and agree with his findings, assessment and plan. In brief: Chief complaint: Left upper lobe lung mass with associated bilateral lower lobe lesions, mediastinal adenopathy and suspicious for spinal lesions History of present illness: Mr. Chan is a 62-year-old previously healthy man with no history of tobacco use. He reports a number of years of dyspnea and a dry cough, gradually worsening and ultimately culminating in a chest radiograph on March 31 which demonstrated a left hilar mass and left lower lobe consolidation. A subsequent chest CT on April 08 demonstrated a left hilar lung mass with a lower lobe mass and also a number of suspicious nodules suggestive of metastatic disease. He isreferred to thoracic surgery for assistance with tissue diagnosis and for further evaluation. The patient denies any limitations with respect to physical activity and can walk at least a mile on the flat without stopping. There is no problem list on file for this patient. No past medical history on file. No past surgical history on file. Social History Socioeconomic History Marital status: Spouse name: Not on file Number of children: Not on file Years of education: Not on file Highest education level: Not on file Occupational History Not on file Tobacco Use Smoking status: Never Smokeless tobacco: Never Vaping Use Vaping Use: Never used Substance and Sexual Activity Alcohol use: Not on file Drug use: Not on file Sexual activity: Not on file Other Topics Concern Not on file Social History Narrative Not on file Social Determinants of Health Financial Resource Strain: Not on file Food Insecurity: Not on file Transportation Needs: Not on file Physical Activity: Not on file Intimate Partner Violence: Not on file Housing Stability: Not on file No current outpatient medications on file prior to visit. No current facility-administered medications on file prior to visit. BP 153/90 (Patient Position: Sitting) Pulse 75 Temp 36 ??C (96.8 ??F) (Temporal) Resp 13 Ht168.4 cm (5' 6.3) Wt 67.2 kg (148 lb 2.4 oz) SpO2 98% BMI 23.70 kg/m?? Physical exam: He appears comfortable. He is alert, oriented and in no distress. He has no neurologic deficits and no palpable adenopathy. His lungs are clear, his heart is regular and his abdomen isneither tender nor distended. Imaging: I reviewed with the patient his chest CT dated April 08. This demonstrates a dominant left upper lobe lung mass with numerous associated nodules in the lower lobe, more prominent on the left than on the right. Mediastinal lymphadenopathy is present and sclerotic lesions in the spine are also suspicious Assessment: 62-year-old previously healthy never smoker with a left upper lobe lung mass with bilateral lower lobe lesions and mediastinal adenopathy. I advised him that the imaging findings were suggestive of a left upper lobe lung cancer with pulmonary metastases; given the pattern of spread mucinous adenocarcinoma is a possibility. We also discussed the fact that this might represent metastasis from an extrathoracic malignancy as well as a hematologic malignancy. We also discussed the possibility of a benign inflammatory process although I advised him that this was unlikely. We discussed the need for staging and tissue diagnosis and I recommended a PET/CT and brain MRI. The mediastinal adenopathy and the mass itself should be amenable to endobronchial ultrasound and bronchoscopic biopsies, and although this may not be definitive for staging it may be the most expeditious immediate approach to a tissue diagnosis. We will therefore proceed with bronchoscopy and EBUS this coming Thursday. Plan: Bronchoscopy/EBUS, PET/CT, brain MRI, further plans to be determined based on tissue diagnosis and definitive staging LUCIANO CISSE MD documented in this encounter H&P Notes * Reji Monteiro PA - 04/20/2023 9:30 AM EST Images from the original note were not included. Thoracic Surgery Outpatient Consultation Note MD Reji Rajput PA-C [place] [address] Date of Consultation: 04/20/2023 This consultation has been requested by PCP: KISHOR Moss Purpose for Consultation: LYNDA mass, bilateral lower lobe lesions, mediastinal lymphadenopathy and afew sclerotic lesions in the thoracic spine HPI: Daniele Chan is a 62 y.o. male with no significant PMHx. Patient reports some breathing symptoms, including SOB and dry cough, which have very gradually worsened over about two years. CXR was performed 03/31/2023 and demonstrated a Left hilar masslike density measuring approximately 4 cm, as well as LLL consolidation. CT Chest was then performed 04/08/2023 and demonstrated LYNDA mass with innumerable pulmonary metastases in both lower lobes, Left greater than Right, associated mediastinal lymphadenopathy and a few sclerotic lesions in the thoracic spine also suspicious for metastatic disease. Patient was then referred to [facility] [place] [place] Thoracic Surgery for further evaluation. Patient is a never smoker, denies ETOH / illicit drug use. 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 Denies any limitations with regards to physical activity however, able to walk at least 1 mile on the flat without stopping and up at least 1-2 flights of stairs without stopping. Past Medical History: There are no problems to display for this patient. No past medical history on file. Past Surgical History: No past surgical history on file. Medications: No outpatient medications have been marked as taking for the 04/20/23 encounter (Office Visit) with Luciano Cisse MD. Allergies: Not on File Family History: No family history on file. Social History: Social History Socioeconomic History Marital status: Spouse name: Not on file Number of children: Not on file Years of education: Not on file Highest education level: Not on file Occupational History Not on file Tobacco Use Smoking status: Never Smokeless tobacco: Never Vaping Use Vaping Use: Never used Substance and Sexual Activity Alcohol use: Not on file Drug use: Not on file Sexual activity: Not on file Other Topics Concern Not on file Social History Narrative Not on file Social Determinants of Health Financial Resource Strain: Not on file Food Insecurity: Not on file Transportation Needs: Not on file Physical Activity: Not on file Intimate Partner Violence: Not on file Housing Stability: Not on file Review of Systems: Pertinent positives as documented per HPI. Patient denies CA/stroke/TIA/DVT/PE/prior cancer, problems with kidneys/liver/bleeding/anesthesia, fevers, chills, sweats, weight loss, fatigue, headaches, dizziness, lightheadedness, changes in vision or hearing, chest pain, palpitations, orthopnea, productive cough, hemoptysis, dyspnea, BERGER, pleurisy, wheezing, sore throat, dysphagia, odynophagia, nausea, vomiting, hematemesis, abdominal pain, constipation, diarrhea, BRBPR, melena, paresthesias, cyanosis, edema. Physical Exam: BP 153/90 (Patient Position: Sitting) Pulse 75 Temp 36 ??C (96.8 ??F) (Temporal) Resp 13 Ht168.4 cm (5' 6.3) Wt 67.2 kg (148 lb 2.4 oz) SpO2 98% BMI 23.70 kg/m?? General Appearance: Alert, cooperative, no distress, appears stated age HEENT: PERRL, MMM, non-icteric Neck: Supple, symmetrical, trachea midline, no adenopathy appreciated Lungs: Clear to auscultation bilat, no wheezes, crackles or ronchi, non-labored breathing on RA Heart: Regular rate and rhythm, no M/R/G appreciated Abdomen: Soft, non-tender, non-distended, BS+ Extremities: Extremities normal, no cyanosis, clubbing or edema Neurologic: A+Ox3, cranial nerves II-XII grossly intact Musculoskeletal: 5/5 throughout with normal gait Diagnostics: I have independently visualized all relevant imaging studies, including: CT Chest (04/08/2023): CXR (03/31/2023): Assessment: Daniele Chan is a 62 y.o. male with no significant PMHx, now with LYNDA mass, bilateral lower lobelesions, mediastinal lymphadenopathy and a few sclerotic lesions in the thoracic spine concerning for possible metastatic process, plan as outlined below: Plan of Management: PET to evaluate for FDG avidity of CT visualized lesions, as well as to assess for other possible sites of concern MRI Brain to evaluate for any possible intracranial process Will plan to proceed with bronchoscopy and EBUS for biopsy Follow up with PCP and other providers as scheduled Recommend minimum of 30 minutes of exercise daily Please call with any questions or concerns at any time Patient was seen and evaluated in conjunction with Dr. Cisse. KISHOR Pollard 04/20/2023 Thoracic Surgery [facility] documented in this encounter Plan of Treatment Upcoming Encounters Date Type Department Care Team (Late st Contact Info) Description 09/28/2023 11:30 AM EDT Office Visit Hematology/Oncology at [address] [phone] Alexsander Thomas MD [facility] DR HEMATOLOGY/[place] [address] Marya Rosenberg APRN [address] [place] [address] HEMATOLOGY AND ONGOLOCY [place], [place] [id number] 09/28/2023 12:00 PM EDT Infusion Hematology Oncology at [address] [phone] documented as of this encounter Results * MRI Brain wwo [...] who have questions please contact the health child care development specialist that requested your imaging first. ? Narrative [...] patients who have questions please contactthe health child care development specialist that requested your imaging first. Luciano Cisse MD IMG MRI ORDERABL ES * NM PET CT Skull Base to [...] who have questions please contact the health child care development specialist that requested your imaging first. ? Electronically signed by: Callum Ridley MD, [facility] ([phone]), at 04/28/2023 10:16 AM Narrative 04/28/2023 10:16 AM EST EXAMINATION: NM PET CT STANDARD SKULL BASE TO MID-THIGH CLINICAL HISTORY: Non-small cell lung cancer initial treatment evaluation. Positive right level 4R keshav metastasis. LYNDA nodule and lymphadenopathy, suspected mets. R91.1, Generalized enlarged lymph nodes. TECHNIQUE: Following IV injection of 52-hpttve-9-deoxyglucose (FDG) a standard uptake of approximately 60 [...] lymph nodes. TECHNIQUE: Following IV injection of 78-spwfpo-3-deoxyglucose (FDG) astandard uptake of approximately 60 minutes, [...] patients who have questions please contactthe health child care development specialist that requested your imaging first. Electronically signed by: Callum Ridley MD, [facility]([phone]), at 04/28/2023 10:16 AM Luciano Cisse MD IMG PET ORDERABL ES documented in this encounter Visit Diagnoses Diagnosis Left upper lobe pulmonary nodule Lymphadenopathy Enlargement of lymph nodes Left upper lobe pulmonary nodule Lymphadenopathy Enlargement of lymph nodes Left upper lobe pulmonary nodule Lymphadenopathy Enlargement of lymph nodes documented in this encounter Care Teams Talcer Relationship Specialty Start Date End Date Mabel Middleton PA [address] [place] [address] PCP - General Family Medicine 04/20/23 documented as of this encounter
--- OUTSIDE RECORDS SUMMARY | 2023-09-07 11:56 | XMS_ITS | Encounter Summary ---
Author Organization [facility] Address [facility] [place] [address] Care Team Providers Care [employer] Name Role Phone Ismael Peralta MD, Boss Primary Care Provider [phone] Encounter Details Date Type Department Care Team (Latest Contact Info) Description 11/30/2019 6:18 PM EDT - 11/30/2019 11:59 PM EDT Hospital [place] [phone] Discharge Disposition: Home Social History Tobacco Use [...] 11:30 AM EDT Office Visit Hematology/Oncology at [address] [phone] Alexsander Thomas MD [facility] DR HEMATOLOGY/[place] [address] Marya Rosenberg APRN [address] [place] [address] [place] [address] 09/28/2023 12:00 PM EDT Infusion Hematology Oncology at [address] [phone] documented as of this encounter Procedures Procedure Name Priority Date/Time Associated Diagnosis Comments COVID-19 PCR Routine 11/30/2019 3:15 PM EDT documented in this encounter Results * COVID-19 PCR (11/30/2019 3:15 PM EDT) SARS-CoV-2 RNA Not Detected Not Detected [facility] Comment: This result should [...] diagnosis of COVID-19 is performed using the [employer] SARS-CoV-2 Assay as authorized by the FDA Emergency Use Authorization (EUA). This EUA assay is intended for In-vitro Diagnostic (IVD) use with respiratory specimens such as nasopharyngeal swabs collected from individuals during the acute phase of infection. This assay is performed based on the instructions for use provided by [employer] and additional guidance provided by CDC and FDA. Testing is performed in the [facility] within the Department of Pathology and Laboratory Medicine at [facility], certified under the Clinical Laboratory Improvement [...] fact sheets at the following FDA website: https://www.fda.gov/medical-devices/zpnjnevceyw-egrlwoy-7223-mhayk-90-cbqeruapx- use-a gzcinvhnsjiwx-ftyzxqm-njfnknh/jyatl-qktdcaudehf-wphu SARS-Cov-2 RNA Source Nasal [facility] Specimen from nose (specimen) Other / Unknown 11/30/2019 3:15 PM EDT 12/02/2019 7:54 AM EDT Narrative Resulting Agency Comment Spec In Lab Ryan Walden MD MICROBIOLOGY - [facility] ORDERABLES Performing Organization Address City/State/[facility] Co de Phone Number [facility] [place] [address] documented in this encounter Visit Diagnoses Not on filedocumented in this encounter Care Teams [employer] Relationship Specialty Start Date End Date Manuel Guevara MD [address] [place] [id number] PCP - General 01/15/10 04/19/23 documented as of this encounter
== END 2023-09-07 11:53 | disposition home or self-care (01) ==
LOC: LBO 11:53
PROVIDERS: Visit Provider Internal Medicine Medical Oncology
DX: C34.12 Malignant neoplasm of upper lobe, left bronchus or lung (principal); C78.7 Secondary malignant neoplasm of liver and intrahepatic bile duct; Z79.899 Other long term (current) drug therapy
CPT/HCPCS: 36415; 80053; 83735; 84439; 84443; 85025

== ENCOUNTER 2023-10-19 15:09 | Outpatient (CLI) | payer MEDICARE, OTHER, SELFPAY ==
[2023-10-19 10:19] LABS: Abs Immature Grans 0.03 10^3/uL (0.0-0.06); Absolute Eosinophil Count 1.22 10^3/uL (0.0-0.7); Absolute Lymphocyte Count 1.32 10^3/uL (1.2-3.4); Absolute Monocyte Count 0.74 10^3/uL (0.1-0.8); Absolute Neutrophil Count 4.28 10^3/uL (1.2-6.7); Basophils % 1.3 %; Eosinophils % 15.9 %; HCT 43.7 % (40.0-50.0); HGB 14.4 g/dL (13.5-17.5); Immature Grans % 0.4 %; Lymphocytes % 17.2 %; MCH 33.8 pg (27.0-33.0); MCV 103 fL (80-95); MPV 8.7 fL (8.0-11.0); Monocytes % 9.6 %; Neutrophils % 55.6 %; Platelet Count 167 10^3/uL (130-400); RBC 4.26 10^6/uL (4.36-5.78); RDW 13.7 % (11.8-14.1); RDW-SD 52.6 fL; WBC 7.69 10^3/uL (4.4-10.8)
[2023-10-19 10:45] LABS: ALT 53 U/L (16-63); AST 28 U/L (15-37); Albumin 3.5 g/dL (3.4-5.0); Alkaline Phosphatase 56 U/L (46-116); Anion Gap 3.8 mmol/L (3-11); BUN 21 mg/dL (7-18); CO2 30.2 mmol/L (21.0-32.0); CREATININE 1.1 mg/dL (0.70-1.30); Calcium 9.1 mg/dL (8.5-10.1); Chloride 104 mmol/L (98-107); FREE T4 0.82 ng/dL (0.76-1.46); Glucose 100 mg/dL (74-106); Magnesium 1.9 mg/dL (1.8-2.4); Potassium 4.4 mmol/L (3.5-5.1); Sodium 138 mmol/L (136-145); TSH 5.43 uIU/Ml (0.36-3.74); Total Protein 7.9 g/dL (6.4-8.2)
== END 2023-10-19 15:10 | disposition home or self-care (01) ==
LOC: LBO 15:09
PROVIDERS: PCP Physician Assistant; Visit Provider Internal Medicine Medical Oncology
DX: Z79.899 Other long term (current) drug therapy (principal); C34.12 Malignant neoplasm of upper lobe, left bronchus or lung; C78.7 Secondary malignant neoplasm of liver and intrahepatic bile duct
CPT/HCPCS: 36415; 80053; 83735; 84439; 84443; 85025

== ENCOUNTER 2023-11-09 04:44 | Outpatient (CLI) | payer MEDICARE, OTHER, SELFPAY ==
[2023-11-09 12:25] LABS: Abs Immature Grans 0.02 10^3/uL (0.0-0.06); Absolute Basophil Count 0.07 10^3/uL (0.0-0.2); Absolute Eosinophil Count 0.44 10^3/uL (0.0-0.7); Absolute Lymphocyte Count 1.23 10^3/uL (1.2-3.4); Absolute Monocyte Count 0.67 10^3/uL (0.1-0.8); Absolute Neutrophil Count 3.41 10^3/uL (1.2-6.7); Basophils % 1.2 %; Eosinophils % 7.5 %; HCT 41.4 % (40.0-50.0); Immature Grans % 0.3 %; Lymphocytes % 21.1 %; MCH 34.5 pg (27.0-33.0); MCHC 33.8 % (32.0-36.0); MCV 102 fL (80-95); MPV 8.8 fL (8.0-11.0); Monocytes % 11.5 %; Neutrophils % 58.4 %; Platelet Count 228 10^3/uL (130-400); RBC 4.06 10^6/uL (4.36-5.78); RDW 12.8 % (11.8-14.1); RDW-SD 48.6 fL; WBC 5.84 10^3/uL (4.4-10.8)
[2023-11-09 12:56] LABS: ALT 60 U/L (16-63); AST 23 U/L (15-37); Albumin 3.3 g/dL (3.4-5.0); Alkaline Phosphatase 51 U/L (46-116); Anion Gap 4.4 mmol/L (3-11); BUN 19 mg/dL (7-18); Bilirubin, Total 0.45 mg/dL (0.2-1.0); CO2 29.6 mmol/L (21.0-32.0); CREATININE 1.3 mg/dL (0.70-1.30); Chloride 105 mmol/L (98-107); Estimated GFR 60.96 (mL/min/1.73m2); FREE T4 0.89 ng/dL (0.76-1.46); Glucose 101 mg/dL (74-106); Potassium 4.1 mmol/L (3.5-5.1); Sodium 139 mmol/L (136-145); Total Protein 7.6 g/dL (6.4-8.2)
== END 2023-11-09 04:45 | disposition home or self-care (01) ==
LOC: LBO 04:44
PROVIDERS: PCP Physician Assistant; Visit Provider Internal Medicine Medical Oncology
DX: Z79.899 Other long term (current) drug therapy (principal)
CPT/HCPCS: 36415; 80053; 83735; 84439; 84443; 85025

== ENCOUNTER 2023-11-30 02:52 | Outpatient (CLI) | payer MEDICARE, OTHER, SELFPAY ==
[2023-11-30 12:08] LABS: Abs Immature Grans 0.03 10^3/uL (0.0-0.06); Absolute Basophil Count 0.08 10^3/uL (0.0-0.2); Absolute Eosinophil Count 0.44 10^3/uL (0.0-0.7); Absolute Lymphocyte Count 1.42 10^3/uL (1.2-3.4); Absolute Monocyte Count 0.74 10^3/uL (0.1-0.8); Absolute Neutrophil Count 3.24 10^3/uL (1.2-6.7); Basophils % 1.3 %; Eosinophils % 7.4 %; HGB 13.8 g/dL (13.5-17.5); Immature Grans % 0.5 %; Lymphocytes % 23.9 %; MCH 33.8 pg (27.0-33.0); MCHC 32.9 % (32.0-36.0); MCV 103 fL (80-95); MPV 8.7 fL (8.0-11.0); Monocytes % 12.4 %; Neutrophils % 54.5 %; Platelet Count 251 10^3/uL (130-400); RBC 4.08 10^6/uL (4.36-5.78); RDW 12.9 % (11.8-14.1); RDW-SD 49.6 fL; WBC 5.95 10^3/uL (4.4-10.8)
[2023-11-30 12:39] LABS: ALT 58 U/L (16-63); AST 21 U/L (15-37); Albumin 3.4 g/dL (3.4-5.0); Alkaline Phosphatase 53 U/L (46-116); Anion Gap 4.5 mmol/L (3-11); BUN 23 mg/dL (7-18); Bilirubin, Total 0.48 mg/dL (0.2-1.0); CO2 31.5 mmol/L (21.0-32.0); CREATININE 1.2 mg/dL (0.70-1.30); Calcium 9.5 mg/dL (8.5-10.1); Chloride 105 mmol/L (98-107); Estimated GFR 67.11 (mL/min/1.73m2); FREE T4 1.03 ng/dL (0.76-1.46); Glucose 98 mg/dL (74-106); Magnesium 1.9 mg/dL (1.8-2.4); Potassium 4.9 mmol/L (3.5-5.1); Sodium 141 mmol/L (136-145); TSH 0.46 uIU/Ml (0.36-3.74)
== END 2023-11-30 02:53 | disposition home or self-care (01) ==
LOC: LBO 02:54
PROVIDERS: PCP Physician Assistant; Visit Provider Internal Medicine Medical Oncology
DX: Z79.899 Other long term (current) drug therapy (principal); C34.12 Malignant neoplasm of upper lobe, left bronchus or lung; C78.7 Secondary malignant neoplasm of liver and intrahepatic bile duct
CPT/HCPCS: 36415; 80053; 83735; 84439; 84443; 85025

== ENCOUNTER 2023-12-21 02:13 | Outpatient (CLI) | payer MEDICARE, OTHER, SELFPAY ==
[2023-12-21 12:46] LABS: Abs Immature Grans 0.04 10^3/uL (0.0-0.06); Absolute Basophil Count 0.06 10^3/uL (0.0-0.2); Absolute Eosinophil Count 0.36 10^3/uL (0.0-0.7); Absolute Lymphocyte Count 1.13 10^3/uL (1.2-3.4); Absolute Monocyte Count 0.66 10^3/uL (0.1-0.8); Absolute Neutrophil Count 4.33 10^3/uL (1.2-6.7); Basophils % 0.9 %; Eosinophils % 5.5 %; HCT 39.4 % (40.0-50.0); HGB 13.2 g/dL (13.5-17.5); Immature Grans % 0.6 %; Lymphocytes % 17.2 %; MCH 33.9 pg (27.0-33.0); MCHC 33.5 % (32.0-36.0); MCV 101 fL (80-95); MPV 8.5 fL (8.0-11.0); Neutrophils % 65.8 %; Platelet Count 234 10^3/uL (130-400); RBC 3.89 10^6/uL (4.36-5.78); RDW 12.8 % (11.8-14.1); RDW-SD 47.7 fL; WBC 6.58 10^3/uL (4.4-10.8)
[2023-12-21 13:11] LABS: ALT 38 U/L (16-63); AST 21 U/L (15-37); Albumin 3.2 g/dL (3.4-5.0); Alkaline Phosphatase 60 U/L (46-116); Anion Gap 5.2 mmol/L (3-11); BUN 21 mg/dL (7-18); Bilirubin, Total 0.32 mg/dL (0.2-1.0); CO2 29.8 mmol/L (21.0-32.0); CREATININE 1.2 mg/dL (0.70-1.30); Calcium 8.7 mg/dL (8.5-10.1); Chloride 106 mmol/L (98-107); Estimated GFR 67.11 (mL/min/1.73m2); FREE T4 1.01 ng/dL (0.76-1.46); Glucose 112 mg/dL (74-106); Magnesium 2.1 mg/dL (1.8-2.4); Sodium 141 mmol/L (136-145); TSH 0.35 uIU/mL (0.36-3.74); Total Protein 7.7 g/dL (6.4-8.2)
== END 2023-12-21 02:14 | disposition home or self-care (01) ==
LOC: LBO 02:13
PROVIDERS: PCP Physician Assistant; Visit Provider Internal Medicine Medical Oncology
DX: Z79.899 Other long term (current) drug therapy (principal); C34.12 Malignant neoplasm of upper lobe, left bronchus or lung; C78.7 Secondary malignant neoplasm of liver and intrahepatic bile duct
CPT/HCPCS: 36415; 80053; 83735; 84439; 84443; 85025

== ENCOUNTER 2024-01-11 02:55 | Outpatient (CLI) | payer MEDICARE, OTHER, SELFPAY ==
[2024-01-11 09:32] LABS: Abs Immature Grans 0.02 10^3/uL (0.0-0.06); Absolute Basophil Count 0.07 10^3/uL (0.0-0.2); Absolute Eosinophil Count 0.52 10^3/uL (0.0-0.7); Absolute Lymphocyte Count 1.33 10^3/uL (1.2-3.4); Absolute Monocyte Count 0.67 10^3/uL (0.1-0.8); Absolute Neutrophil Count 3.11 10^3/uL (1.2-6.7); Basophils % 1.2 %; Eosinophils % 9.1 %; HCT 40.1 % (40.0-50.0); HGB 13.3 g/dL (13.5-17.5); Immature Grans % 0.3 %; Lymphocytes % 23.3 %; MCH 34.1 pg (27.0-33.0); MCHC 33.2 % (32.0-36.0); MCV 103 fL (80-95); MPV 8.5 fL (8.0-11.0); Monocytes % 11.7 %; Neutrophils % 54.4 %; Platelet Count 245 10^3/uL (130-400); RDW 13.2 % (11.8-14.1); WBC 5.72 10^3/uL (4.4-10.8)
[2024-01-11 10:01] LABS: ALT 48 U/L (16-63); AST 26 U/L (15-37); Albumin 3.2 g/dL (3.4-5.0); Alkaline Phosphatase 60 U/L (46-116); Anion Gap 6.1 mmol/L (3-11); BUN 23 mg/dL (7-18); Bilirubin, Total 0.43 mg/dL (0.2-1.0); CO2 28.9 mmol/L (21.0-32.0); CREATININE 1.2 mg/dL (0.70-1.30); Calcium 8.8 mg/dL (8.5-10.1); Chloride 107 mmol/L (98-107); Estimated GFR 67.11 (mL/min/1.73m2); FREE T4 0.91 ng/dL (0.76-1.46); Glucose 93 mg/dL (74-106); Magnesium 2.2 mg/dL (1.8-2.4); Potassium 4.3 mmol/L (3.5-5.1); Sodium 142 mmol/L (136-145); TSH 0.69 uIU/mL (0.36-3.74); Total Protein 7.7 g/dL (6.4-8.2)
== END 2024-01-11 02:56 | disposition home or self-care (01) ==
LOC: LBO 02:55
PROVIDERS: PCP Physician Assistant; Visit Provider Internal Medicine Medical Oncology
DX: Z79.899 Other long term (current) drug therapy (principal); C34.12 Malignant neoplasm of upper lobe, left bronchus or lung
CPT/HCPCS: 36415; 80053; 83735; 84439; 84443; 85025

== ENCOUNTER 2024-02-02 01:59 | Outpatient (CLI) | payer MEDICARE, OTHER, SELFPAY ==
[2024-02-02 11:00] LABS: Abs Immature Grans 0.02 10^3/uL (0.0-0.06); Absolute Basophil Count 0.07 10^3/uL (0.0-0.2); Absolute Eosinophil Count 0.38 10^3/uL (0.0-0.7); Absolute Lymphocyte Count 1.21 10^3/uL (1.2-3.4); Absolute Monocyte Count 0.67 10^3/uL (0.1-0.8); Absolute Neutrophil Count 4.09 10^3/uL (1.2-6.7); Basophils % 1.1 %; Eosinophils % 5.9 %; HCT 41.7 % (40.0-50.0); HGB 13.9 g/dL (13.5-17.5); Immature Grans % 0.3 %; Lymphocytes % 18.8 %; MCH 33.5 pg (27.0-33.0); MCHC 33.3 % (32.0-36.0); MCV 101 fL (80-95); MPV 8.4 fL (8.0-11.0); Monocytes % 10.4 %; Neutrophils % 63.5 %; Platelet Count 258 10^3/uL (130-400); RBC 4.15 10^6/uL (4.36-5.78); RDW 12.8 % (11.8-14.1); RDW-SD 47.7 fL; WBC 6.44 10^3/uL (4.4-10.8)
[2024-02-02 11:27] LABS: ALT 22 U/L (16-63); AST 16 U/L (15-37); Albumin 3.3 g/dL (3.4-5.0); Alkaline Phosphatase 71 U/L (46-116); Anion Gap 5.6 mmol/L (3-11); BUN 24 mg/dL (7-18); Bilirubin, Total 0.49 mg/dL (0.2-1.0); CO2 29.4 mmol/L (21.0-32.0); CREATININE 1.3 mg/dL (0.70-1.30); Calcium 8.7 mg/dL (8.5-10.1); Chloride 104 mmol/L (98-107); Estimated GFR 60.96 (mL/min/1.73m2); FREE T4 0.96 ng/dL (0.76-1.46); Glucose 95 mg/dL (74-106); Potassium 4.1 mmol/L (3.5-5.1); Sodium 139 mmol/L (136-145); TSH 2.09 uIU/mL (0.36-3.74); Total Protein 8.3 g/dL (6.4-8.2)
== END 2024-02-02 02:00 | disposition home or self-care (01) ==
LOC: LBO 01:59
PROVIDERS: PCP Physician Assistant; Visit Provider Internal Medicine Medical Oncology
DX: Z79.899 Other long term (current) drug therapy (principal); C34.12 Malignant neoplasm of upper lobe, left bronchus or lung
CPT/HCPCS: 36415; 80053; 83735; 84439; 84443; 85025

== ENCOUNTER 2024-02-22 02:34 | Outpatient (CLI) | payer MEDICARE, OTHER, SELFPAY ==
[2024-02-22 11:49] LABS: Abs Immature Grans 0.04 10^3/uL (0.0-0.06); Absolute Basophil Count 0.09 10^3/uL (0.0-0.2); Absolute Eosinophil Count 0.47 10^3/uL (0.0-0.7); Absolute Lymphocyte Count 1.19 10^3/uL (1.2-3.4); Absolute Monocyte Count 0.58 10^3/uL (0.1-0.8); Absolute Neutrophil Count 3.32 10^3/uL (1.2-6.7); Basophils % 1.6 %; Eosinophils % 8.3 %; HCT 41.9 % (40.0-50.0); HGB 13.8 g/dL (13.5-17.5); Immature Grans % 0.7 %; Lymphocytes % 20.9 %; MCH 32.8 pg (27.0-33.0); MCHC 32.9 % (32.0-36.0); MCV 100 fL (80-95); MPV 8.6 fL (8.0-11.0); Monocytes % 10.2 %; Neutrophils % 58.3 %; Platelet Count 240 10^3/uL (130-400); RBC 4.21 10^6/uL (4.36-5.78); RDW 13.2 % (11.8-14.1); RDW-SD 48.4 fL; WBC 5.69 10^3/uL (4.4-10.8)
[2024-02-22 12:13] LABS: ALT 23 U/L (16-63); AST 19 U/L (15-37); Albumin 3.1 g/dL (3.4-5.0); Alkaline Phosphatase 63 U/L (46-116); Anion Gap 6.4 mmol/L (3-11); BUN 20 mg/dL (7-18); Bilirubin, Total 0.26 mg/dL (0.2-1.0); CO2 28.6 mmol/L (21.0-32.0); CREATININE 1.3 mg/dL (0.70-1.30); Calcium 8.8 mg/dL (8.5-10.1); Chloride 105 mmol/L (98-107); Estimated GFR 60.96 (mL/min/1.73m2); Glucose 104 mg/dL (74-106); Sodium 140 mmol/L (136-145); TSH 0.88 uIU/mL (0.36-3.74); Total Protein 7.6 g/dL (6.4-8.2)
== END 2024-02-22 02:35 | disposition home or self-care (01) ==
LOC: LBO 02:34
PROVIDERS: PCP Physician Assistant; Visit Provider Internal Medicine Medical Oncology
DX: C34.12 Malignant neoplasm of upper lobe, left bronchus or lung (principal)
CPT/HCPCS: 36415; 80053; 83735; 84439; 84443; 85025

== ENCOUNTER 2024-03-29 10:45 | Outpatient (CLI) | payer MEDICARE, OTHER, SELFPAY ==
[2024-03-29 10:35] LABS: Abs Immature Grans 0.02 10^3/uL (0.0-0.06); Absolute Basophil Count 0.08 10^3/uL (0.0-0.2); Absolute Eosinophil Count 1.01 10^3/uL (0.0-0.7); Absolute Lymphocyte Count 1.27 10^3/uL (1.2-3.4); Absolute Monocyte Count 0.62 10^3/uL (0.1-0.8); Absolute Neutrophil Count 3.52 10^3/uL (1.2-6.7); Basophils % 1.2 %; Eosinophils % 15.5 %; HGB 14.4 g/dL (13.5-17.5); Immature Grans % 0.3 %; Lymphocytes % 19.5 %; MCH 32.5 pg (27.0-33.0); MCHC 32.7 % (32.0-36.0); MCV 99 fL (80-95); MPV 9.2 fL (8.0-11.0); Monocytes % 9.5 %; Platelet Count 141 10^3/uL (130-400); RBC 4.43 10^6/uL (4.36-5.78); RDW 13.4 % (11.8-14.1); RDW-SD 49.9 fL; WBC 6.52 10^3/uL (4.4-10.8)
[2024-03-29 11:04] LABS: ALT 35 U/L (16-63); AST 20 U/L (15-37); Albumin 3.4 g/dL (3.4-5.0); Alkaline Phosphatase 49 U/L (46-116); BUN 20 mg/dL (7-18); Bilirubin, Total 0.67 mg/dL (0.2-1.0); CREATININE 1.1 mg/dL (0.70-1.30); Calcium 9.3 mg/dL (8.5-10.1); Chloride 107 mmol/L (98-107); FREE T4 0.92 ng/dL (0.76-1.46); Glucose 90 mg/dL (74-106); Magnesium 2.1 mg/dL (1.8-2.4); Potassium 4.6 mmol/L (3.5-5.1); Sodium 142 mmol/L (136-145); TSH 0.43 uIU/mL (0.36-3.74); Total Protein 7.4 g/dL (6.4-8.2)
== END 2024-03-29 10:46 | disposition home or self-care (01) ==
LOC: LBO 10:45
PROVIDERS: PCP Physician Assistant; Visit Provider Internal Medicine Medical Oncology
DX: Z79.899 Other long term (current) drug therapy (principal); C34.12 Malignant neoplasm of upper lobe, left bronchus or lung
CPT/HCPCS: 36415; 80053; 83735; 84439; 84443; 85025